=== PATIENT | female | born 1995 | race Caucasian/White ===

== ENCOUNTER 2017-12-08 00:05 | Inpatient (IN) | payer MEDICAID, SELFPAY ==
[2017-12-08] MEDS: Lactated Ringers 1,000 ML 50 ML IV ×4 (00:50→18:17)
[2017-12-08 01:17] LABS: Hematocrit 34.3 % (37-47); Hemoglobin 10.9 g/dl (12.0-15.0); Mean Corp Hgb Conc 31.8 g/gl (32-36); Mean Corpuscular Hgb 25.7 pg (27.0-32.0); Mean Corpuscular Volume 80.9 fL (81-99); Mean Platelet Vol. 10.6 fl (6.2-12.0); Platelet Count 298 K/mm3 (150-450); RBC Distribution Width CV 14.8 % (11.6-14.6); RBC Distribution Width SD 43.3 fl (35.1-43.9); Red Blood Count 4.24 M/mm3 (4.2-5.4); Scan Indicated on CBC? Y/N NO; White Blood Count 8.3 K/mm3 (4.4-11.0)
[2017-12-08] MEDS: Acetaminophen 500 MG Tablet 1000 MG PO (01:18)
--- NOTE | 2017-12-08 01:19 | PCM.HP.OB ---
- Problem List (1) Active labor at term Status: Acute (2) Gestational hypertension Status: Acute Qualifiers: Trimester: third trimester Qualified Code(s): O13.3 - Gestational [-induced] hypertension without significant proteinuria, third trimester (3) Obesity affecting in third trimester Status: Chronic (4) History of asthma Status: Chronic (5) Rh negative state in antepartum period Status: Chronic (6) History of depression Status: Chronic History Date of Admission: 12/08/17 Final ACSSIE: 12/12/17 Final CASSIE Source: US <20 weeks Gestational age: 39 Weeks and 3 Days History of this : Patient presents to triage with mother reporting intractable headache since Saturday. Patient reports no relief after taking Tylenol at home. Patient notes a family history of pre-eclampsia that all her cousins and sister had to be induced. Patient also started feeling more rhythmic contractions today that were 5 minutes apart and lasting a minute long. Patient reports +FM. Denies LOF or VB. Pertinent Past Medical History: See problem list and [facility] records Allergies amoxicillin trihydrate [From Augmentin] Adverse Reaction (Verified 12/08/17 00:52) Swelling potassium clavulanate [From Augmentin] Adverse Reaction (Verified 12/08/17 00:52) Swelling Current Medications Sodium Chloride (Sodium Chloride) 100 ml INTRA-UTER UD ONE Stop: 12/08/17 01:21 Smoking Status: Never smoker Alcohol: None Drug Use: none Number of Fetus(es): 1 Review of Systems Constitutional: Denies: Chills, Fever, Weight Change Eyes: Denies: Blurred vision, Vision Change HEENT: Reports: Head Aches. Denies: Nasal Congestion, Sinus Congestion, Sinus Drainage Cardiovascular: Denies: Chest Pain, Chest Pressure, Palpitations Respiratory: Denies: Cough, Shortness of breath at rest, Sputum production Gastrointestinal: Denies: Constipation, Diarrhea, Nausea, Vomiting Genitourinary: Denies: Dysuria Gynecological: Denies: Vaginal discharge Musculoskeletal: Denies: Joint Pain, Joint Tenderness Skin: Denies: Rash, Wounds Neurological: Reports: Headaches. Denies: Focal weakness, Numbness, Tingling Psychiatric: Denies: Anxiety, Depression, Homicidal Ideations, Suicidal Ideations Hematologic/ Lymphatic: Denies: Easy Bruising, Easy Bleeding Physical Exam Vitals: BP = 168/91, 140/72. Other VSS and patient afebrile FHT baseline 150, moderate variability, few accels, occasional early decels noted Ctx q 2-10 minutes, mild to moderately strong to palpation General: Alert, Oriented x3, No apparent distress Cardiovascular: Regular rate, Regular Rhythm Lungs: Clear to auscultation, Normal air movement Abdomen: Bowel Sounds Present, Non-Distended, No Hepato-splenomegaly, Gravid, Appropriate for Gestational Age Extremities:: Deep tendon reflexes - +3/4, +clonus BL. +1/+1 non-pitting edema in LE Estimated gestational size: Appropriate for gestational size Presentation: Cephalic Cervix Dilation (cm): 0 - External os 2cm Station: -3 Effacement (%): 50 Assessment/Plan Active and Suspected Problems Active labor at term (Acute) Gestational hypertension (Acute) 22 y/o @ 39.3wks, Gestational Hypertension, Pre-eclampsia - ruled out at this time 1) Admit patient for labor augmentation for GHTN - velasco catheter placement anticipated 2) Monitor blood pressures closely, initiate hypertensive protocol with blood pressures >160/100 as well as fluid restrictions 3) Dr. Harris notified of admission and agrees with plan of care. Marcela Quintero CNM
[2017-12-08 01:23] LABS: International Normalized Ratio 0.9; Partial Thromboplast Time 28.5 Seconds (24.1-36.2); Prothrombin Time (Protime)PT. 12.2 SECONDS (11.7-14.9)
[2017-12-08 01:25] VITALS: BMI 39.3
[2017-12-08 01:31] LABS: AST(SGOT) 26 U/L (15-37); Alanine Aminotransfer ALT/SGPT 31 U/L (13-56); Creatinine, Serum 0.76 mg/dL (0.55-1.02); EST Glomerular Filtration Rate 102 mL/min (>60); Est Glom Filt Rate - Afr Amer 123 mL/min (>60); Estimated Creatinine Clearance 105.36 ml/min; Uric Acid 5.9 mg/dL (2.6-6.0)
--- NOTE | 2017-12-08 01:36 | HP.PCM_ITS ---
- Problem List (1) Active labor at term Status: Acute (2) Gestational hypertension Status: Acute Qualifiers: Trimester: third trimester Qualified Code(s): O13.3 - Gestational [ -induced] hypertension without significant proteinuria, third trimester (3) Obesity affecting in third trimester Status: Chronic (4) History of asthma Status: Chronic (5) Rh negative state in antepartum period Status: Chronic (6) History of depression Status: Chronic History Date of Admission: 12/08/17 Final CASSIE: 12/12/17 Final CASSIE Source: US <20 weeks Gestational age: 39 Weeks and 3 Days History of this : Patient presents to triage with mother reporting intractable headache since Saturday. Patient reports no relief after taking Tylenol at home. Patient notes a family history of pre-eclampsia that all her cousins and sister had to be induced. Patient also started feeling more rhythmic contractions today that were 5 minutes apart and lasting a minute long. Patient reports +FM. Denies LOF or VB. Pertinent Past Medical History: See problem list and [facility] records Allergies amoxicillin trihydrate [From Augmentin] Adverse Reaction (Verified 12/08/17 00: 52) Swelling potassium clavulanate [From Augmentin] Adverse Reaction (Verified 12/08/17 00:52 ) Swelling Current Medications Sodium Chloride (Sodium Chloride) 100 ml INTRA-UTER UD ONE Stop: 12/08/17 01:21 Smoking Status: Never smoker Alcohol: None Drug Use: none Number of Fetus(es): 1 Review of Systems Constitutional: Denies: Chills, Fever, Weight Change Eyes: Denies: Blurred vision, Vision Change HEENT: Reports: Head Aches. Denies: Nasal Congestion, Sinus Congestion, Sinus Drainage Cardiovascular: Denies: Chest Pain, Chest Pressure, Palpitations Respiratory: Denies: Cough, Shortness of breath at rest, Sputum production Gastrointestinal: Denies: Constipation, Diarrhea, Nausea, Vomiting Genitourinary: Denies: Dysuria Gynecological: Denies: Vaginal discharge Musculoskeletal: Denies: Joint Pain, Joint Tenderness Skin: Denies: Rash, Wounds Neurological: Reports: Headaches. Denies: Focal weakness, Numbness, Tingling Psychiatric: Denies: Anxiety, Depression, Homicidal Ideations, Suicidal Ideations Hematologic/ Lymphatic: Denies: Easy Bruising, Easy Bleeding Physical Exam Vitals: BP = 168/91, 140/72. Other VSS and patient afebrile FHT baseline 150, moderate variability, few accels, occasional early decels noted Ctx q 2-10 minutes, mild to moderately strong to palpation General: Alert, Oriented x3, No apparent distress Cardiovascular: Regular rate, Regular Rhythm Lungs: Clear to auscultation, Normal air movement Abdomen: Bowel Sounds Present, Non-Distended, No Hepato-splenomegaly, Gravid, Appropriate for Gestational Age Extremities:: Deep tendon reflexes - +3/4, +clonus BL. +1/+1 non-pitting edema in LE Estimated gestational size: Appropriate for gestational size Presentation: Cephalic Cervix Dilation (cm): 0 - External os 2cm Station: -3 Effacement (%): 50 Assessment/Plan Active and Suspected Problems Active labor at term (Acute) Gestational hypertension (Acute) 22 y/o @ 39.3wks, Gestational Hypertension, Pre-eclampsia - ruled out at this time 1) Admit patient for labor augmentation for GHTN - velasco catheter placement anticipated 2) Monitor blood pressures closely, initiate hypertensive protocol with blood pressures >160/100 as well as fluid restrictions 3) Dr. Harris notified of admission and agrees with plan of care. Marcela Quintero CNM
[2017-12-08 01:58] LABS: Mucous, Urine 0 SEEN /hpf (<or=2+)
[2017-12-08 02:02] LABS: Color, Urine Yellow (Yellow); Glucose, Dipstick Normal (Normal); Ketone-Dipstick 15 mg/dl (Negative); Leukocyte Esterase-Dipstick 500 /ul (Negative); Nitrite-Dipstick Negative (Negative); Occult Blood-Urine 10 /ul (Negative); Protein-Dipstick 30 mg/dl (Negative); Urine Clarity Sl. Cloudy (Clear); Urine Urobilinogen 4 mg/dl (Normal)
[2017-12-08] MEDS: 0.9% Normal Saline 100 ML IV.SOLN. INTRA-UTER (02:14)
--- NOTE | 2017-12-08 02:18 | PCM.PN.BLA ---
Progress Note Leung bulb manual dilator catheter attempted to be placed - patient initially 1.5/50/-3 on exam. Leung catheter kept coming out of cervical os as balloon was being filled. After several attempts, catheter unable to be placed as cervix had dilated more to 3/50/-3. Decision made to start IV pitocin per protocol. Patient desires epidural for pain management. Pencillin GBS prophylaxis to be started at this time also. Marcela Quintero CNM
[2017-12-08 02:21] LABS: Urine Bilirubin Dipstick 1 mg/dL (Negative)
[2017-12-08 02:23] LABS: Bacteria 1+ /hpf (None Seen); Red Blood Cells-Urine 0-5 SEEN /hpf (0-5); Squamous Epithelial Cells - UA 10-25 SEEN /hpf (5-10); White Blood Cells 10-25 SEEN /hpf (0-5)
[2017-12-08] MEDS: Oxytocin 30 units/NS 500 ml 30 UNITS/500 ML IV.SOLN IV (02:31)
[2017-12-08 02:59] LABS: Protein, Urine (Random) 72.9 mg/dL (<11.9); Protein:Creat Ratio 250 mg/g CRE (0-200)
--- NOTE | 2017-12-08 07:39 | PCM.PN.BLA ---
Progress Note S: Patient sitting up in bed, overnight she reports that she was able to rest well with her contractions. Patient reports improvement of her headache. Pitocin currently at 6 milliunits, patient reports she continues to feel contractions and is interested now in getting an epidural. O: Last BP = 110/72, otherwise VSS and patient afebrile FHT baseline 145, moderate variability, few accels, no decels noted CTX q 2-5 minutes palpate moderate to strong SVE = 3/50/-2, AROM for blood-tinged fluid A: 22 y/o @ 39.3 weeks, IOL for GHTN, Pitocin induction, Category I FHT P: 1) Continue present management 2) Dr. Harris updated on patient status Marcela Quintero CNM
[2017-12-08] MEDS: Budesonide Respules 0.5 MG/2 ML AMPUL.NEB. INHALATION ×2 (13:02→18:46)
[2017-12-08] MEDS: Albuterol 2.5 MG/3 ML VIAL.NEB. INHALATION ×2 (13:02→18:45)
[2017-12-08 13:05] VITALS: PULSE 118; RESP 18
--- NOTE | 2017-12-08 14:00 | PCM.PN.BLA ---
Progress Note S: Patient reports increasing strength and intensity of contractions. Desired epidural and that was placed uneventfully. Patient now comfortably laboring, denies any pain or discomfort. Pitocin IV for labor augmentation continues to infuse. Patient's mother and uncle at bedside providing support to patient. O: VSS, Afebrile FHT baseline 145, moderate variability, + accels, no decels Ctx q 2-3 minutes apart, palpate moderately strong SVE = 4/80/-2 by nursing exam A: 22 y/o @ 39.3 weeks, IOL for GHTN, Pitocin Augmentation, Epidural Analgesia, Category I FHT P: 1) Continue pitocin titration 2) Encourage position changes and PO hydration 3) Reassess SVE in 2-4 hours or with change in maternal or status Marcela Quintero CNM
[2017-12-08] MEDS: Acetaminophen 325 MG Tablet PO (14:37)
--- NOTE | 2017-12-08 16:08 | PCM.PN.BLA ---
Progress Note S: Patient remains comfortable with epidural, denies any new symptoms. Patient's mother remains at bedside providing support. O: VSS, Afebrile. Isolated elevated blood pressure noted after receiving asthma maintenance medication - repeat BPs have been 130-140s/70-80s or lower FHT baseline 140, +accels, no decels, moderate variability Ctx q 2-4 minutes, palpate moderately strong SVE = 4-5/80/-2 Reflexes +2/4 BL in LE, no clonus noted at this time by provider Urine output WNL (>30cc/hr) A: 22 y/o @ 39.3 weeks, Pitocin IOL for GHTN, Category I FHT P: 1) Continue pitocin titration for labor management 2) IUPC placed 3) Encourage PO hydration and position changes. Marcela Quintero CNM
--- NOTE | 2017-12-08 16:18 | PN_ITS ---
Progress Note S: Patient remains comfortable with epidural, denies any new symptoms. Patient' s mother remains at bedside providing support. O: VSS, Afebrile. Isolated elevated blood pressure noted after receiving asthma maintenance medication - repeat BPs have been 130-140s/70-80s or lower FHT baseline 140, +accels, no decels, moderate variability Ctx q 2-4 minutes, palpate moderately strong SVE = 4-5/80/-2 Reflexes +2/4 BL in LE, no clonus noted at this time by provider Urine output WNL (>30cc/hr) A: 22 y/o @ 39.3 weeks, Pitocin IOL for GHTN, Category I FHT P: 1) Continue pitocin titration for labor management 2) IUPC placed 3) Encourage PO hydration and position changes. Marcela Quintero CNM
--- NOTE | 2017-12-08 18:38 | PCM.PN.BLA ---
Progress Note S: Patient remains in stable condition, pitocin currently at 8 milliunits. Nursing staff notified this certified nurse midwife that they recently assessed patient's cervix and they noted no change in dilation. O: VSS, Afebrile. Last BP = 120/76 FHT baseline 150, moderate variability, + accels, no decels Ctx q 2-4 minutes, MVU = 180-200 SVE = Unchanged per Nurse Exam A: 22 y/o @ 39.3 weeks, IOL for GHTN, Category I FHT, Pitocin Augmentation P: 1) Continue present management at this time 2) Encourage position changes Marcela Quintero CNM
--- NOTE | 2017-12-08 18:44 | PN_ITS ---
Progress Note S: Patient remains in stable condition, pitocin currently at 8 milliunits. Nursing staff notified this sanitarian aide that they recently assessed patient's cervix and they noted no change in dilation. O: VSS, Afebrile. Last BP = 120/76 FHT baseline 150, moderate variability, + accels, no decels Ctx q 2-4 minutes, MVU = 180-200 SVE = Unchanged per Nurse Exam A: 22 y/o @ 39.3 weeks, IOL for GHTN, Category I FHT, Pitocin Augmentation P: 1) Continue present management at this time 2) Encourage position changes Marcela Quintero CNM
[2017-12-08 18:46] VITALS: PULSE 85; RESP 16
--- NOTE | 2017-12-08 20:34 | PCM.PN.BLA ---
Progress Note S: Patient continues to rest at this time. Denies any issues. Patient's mother remains at bedside supporting patient. O: VSS, Afebrile FHT baseline 150, moderate variability, + accels, no decels Ctx q 2-4 minutes, MVU = 140-160. Pitocin just increased to 10 milliunits SVE = Deferred A: 22 y/o @ 39.3 weeks, Category I FHT, IOL for GHTN P: 1) Continue to increase pitocin at this time until adequate MVUs noted 2) Dr. Harris updated on patient status Marcela Quintero CNM
--- NOTE | 2017-12-08 21:59 | PCM.PN.BLA ---
Progress Note This provider was going to do vaginal exam on patient, nursing staff had just assessed patient's cervix about 30 minutes ago. Decision was made not to follow-up on the nurse's exam. Per nursing staff, no change in cervical dilation and caput noted. Patient remains afebrile, last temp 99.1. Encourage nursing staff not to check patient's cervix with next exam but to contact this provider who has been in house so recommendations for positioning of patient can be made. Marcela Quintero CNM
--- NOTE | 2017-12-08 22:04 | PN_ITS ---
Progress Note This provider was going to do vaginal exam on patient, nursing staff had just assessed patient's cervix about 30 minutes ago. Decision was made not to follow- up on the nurse's exam. Per nursing staff, no change in cervical dilation and caput noted. Patient remains afebrile, last temp 99.1. Encourage nursing staff not to check patient's cervix with next exam but to contact this provider who has been in house so recommendations for positioning of patient can be made. Marcela Quintero CNM
[2017-12-09] VITALS (25 sets, daily range): BP systolic 127–150; BP diastolic 53–95; PULSE 83–127; RESP 14–20; TEMP 36.4–37.4; O2SAT 95–100
[2017-12-09] MEDS: Lactated Ringers 1,000 ML 50 ML IV (00:16)
[2017-12-09] MEDS: 0.9% Saline Lock 10 ML Syringe IV (00:17)
--- NOTE | 2017-12-09 00:53 | PCM.PN.BLA ---
Progress Note S: Page received from nursing staff, pitocin is at 18 milliunits now. Nursing staff desires a reassessment of cervical dilation with plan to replace FSE monitor and to assess if IUPC is coming out. Patient reports she feels calm and has rested well. No changes in sensation of rectal pressure noted by patient. O: VSS, Afebrile FHT baseline 140, moderate variability, + accels, no decels Ctx q 2-3 minutes, palpate strong, MVU now 200-220 SVE = 4-5/80/-1 to 0 station with ctx. + caput noted. head LOT by Terrence's and SVE A: 22 y/o @ 39.3 weeks, IOL for GHTN, Category I FHT with Adequate ctx by MVUs, Protracted Labor P: 1) Adeuqate ctx by MVUs now noted, minimal cervical change, possible Deep Transverse Arrest 2) Encourage position changes, side release technique 3) If no cervical change by next exam, consider primary LTCS Marcela Quintero CNM
--- NOTE | 2017-12-09 01:06 | PN_ITS ---
Progress Note S: Page received from nursing staff, pitocin is at 18 milliunits now. Nursing staff desires a reassessment of cervical dilation with plan to replace FSE monitor and to assess if IUPC is coming out. Patient reports she feels calm and has rested well. No changes in sensation of rectal pressure noted by patient. O: VSS, Afebrile FHT baseline 140, moderate variability, + accels, no decels Ctx q 2-3 minutes, palpate strong, MVU now 200-220 SVE = 4-5/80/-1 to 0 station with ctx. + caput noted. head LOT by Terrence' s and SVE A: 22 y/o @ 39.3 weeks, IOL for GHTN, Category I FHT with Adequate ctx by MVUs, Protracted Labor P: 1) Adeuqate ctx by MVUs now noted, minimal cervical change, possible Deep Transverse Arrest 2) Encourage position changes, side release technique 3) If no cervical change by next exam, consider primary LTCS Marcela Quintero CNM
[2017-12-09] MEDS: Albuterol 2.5 MG/3 ML VIAL.NEB. INHALATION (01:40)
[2017-12-09] MEDS: Acetaminophen 325 MG Tablet PO (02:25)
--- NOTE | 2017-12-09 04:55 | PCM.PN.BLA ---
Progress Note S: Patient sitting up in bed, reports that she is starting to feel more rectal pressure. Decision made to do SVE at this time. O: VSS, Afebrile FHT baseline 140, moderate variability, + accels, no decels Ctx q 2-4 minutes, MVU = 180-200 SVE = Unchanged, head now asynclitic. + caput 4/80/-1 A: 22 y/o @ 39.4 weeks, Failed Induction, Category I FHT P: 1) Contact Dr. Harris - LTCS recommended 2) Benefits/Risks of LTCS discussed 3) Proceed with LTCS Marcela Quintero CNM
[2017-12-09] MEDS: Sodium Citrate/Citric Acid 30 ML UDC PO (04:57)
[2017-12-09] MEDS: Cefazolin 2 GM in 0.9% Normal Saline 100 ML IV (05:10)
[2017-12-09] MEDS: Oxytocin 30 units/NS 500 ml 30 UNITS/500 ML IV.SOLN 167 UNITS IV (05:24)
[2017-12-09] MEDS: Lactated Ringers 1,000 ML 100 ML IV ×3 (06:00→18:06)
--- NOTE | 2017-12-09 06:02 | OP.PCM_ITS ---
Operative Report Date of Procedure: 12/09/17 Surgeon: Dr. Elsa Michael Director Insurance: Manoj RAMIREZ Preoperative diagnosis: Failed induction, 39.4 wks gestation Gestational HTN Postoperative diagnosis: Failed Induction, 39.4 weeks gestation, gestational HTN Findings: pt was IOL for gestational HTN at 39.3 wks gestation- on pitocin 18mu with adequate contractions and ROM for approximately 22hours with no cervical change past 4-5cm. pt was counseled for Primary C/S due to failed induction. Pt underwent primary cs without complication. delivered live female at 5:24 am apgars 8/9 Anesthesia: epidural Complications: None Estimated blood loss:900 Implantable devices: None Operative note: After informed consent was obtained the patient was taken the operating room she was given spinal anesthesia. She was then placed in the supine position. She was prepped and draped in the normal sterile fashion. Anesthesia was found to be adequate. At this time a Pfannenstiel skin incision was made with a knife was carried down to the underlying layer of the fascia. The fascial incision was then extended laterally using curved Cerna scissor. Tensions was then turned to the superior aspect of the fascial edge was grasped with 2 straight Godfrey clamps tented up and the rectus muscle dissected off using Bovie. Attention was then turned to the inferior aspect where again [place] Feria clamps were placed in the rectus muscles were tented up and the fascia was dissected off using the Bovie. Rectus muscles were then in the midline bluntly and peritoneum was entered bluntly. Gentle opposing traction was placed. At this time the vesicouterine peritoneum was identified. vesicouterine peritoneum taken down using metaenbaum. Scalpel was used to make a uterine incision in a low transverse fashion. The uterus was then entered bluntly gentle opposing traction was placed to extend this incision. Membranes were ruptured clear. 's head was brought to the uterine incision was delivered atraumatically. Delayed cord clamping performed. Cord was clamped and cut was handed to the waiting nursery team. The Placenta was removed from the uterus. The uterus was then removed from the abdominal cavity. The uterus was cleared of all clots and debris using a lap. At this time the uterine incision was reapproximated using #1 Vicryl in a running locked fashion. followed by a second imbricating layer with 1-0 Vicryl. Hemostasis was appreciated. Posterior cul-de-sac was then cleared of all clots and debris. Uterus was placed back in the abdominal cavity. Gutters were cleared of all clots and debris. Uterine incision was reevaluated and noted to be of excellent hemostasis. Arian placed. At this time the peritoneum was grasped with Kellys reapproximated using #2 Vicryl suture in a running fashion. Fascia was then reapproximated using #1- PDS in a running fashion. Subcu layer was reapproximated with #2 0 plain gut suture in an interrupted fashion. Subcu layer was closed using 4-0 Monocryl in a subcu fashion. Dry sterile dressing was applied. Instrument lap needle count correct ?2. Anticipated normal postoperative course.
[2017-12-09] MEDS: Ketorolac 30 MG/ML Syringe IV ×2 (11:41→18:17)
--- NOTE | 2017-12-09 13:13 | NURSING ---
1300 This nurse removed the epidural catheter, blue tip intact.
--- NOTE | 2017-12-09 13:14 | NURSING ---
This nurse reviewed the charting completed by the student nurse, Rylee Springer. The charting is complete.
[2017-12-10] VITALS (8 sets, daily range): BP systolic 115–143; BP diastolic 74–86; PULSE 83–108; RESP 16–18; TEMP 36.9–37.2; O2SAT 95–98
[2017-12-10] MEDS: Ketorolac 30 MG/ML Syringe IV ×4 (00:37→23:54)
[2017-12-10] MEDS: 0.9% Saline Lock 10 ML Syringe IV ×4 (00:37→23:54)
[2017-12-10 05:20] LABS: Hematocrit 26.5 % (37-47); Hemoglobin 8.4 g/dl (12.0-15.0); Mean Corp Hgb Conc 31.7 g/gl (32-36); Mean Corpuscular Hgb 26.3 pg (27.0-32.0); Mean Corpuscular Volume 82.8 fL (81-99); Mean Platelet Vol. 9.8 fl (6.2-12.0); Platelet Count 237 K/mm3 (150-450); RBC Distribution Width CV 15.2 % (11.6-14.6); RBC Distribution Width SD 44.2 fl (35.1-43.9); White Blood Count 9.1 K/mm3 (4.4-11.0)
[2017-12-10 05:21] LABS: Scan Indicated on CBC? Y/N NO
--- NOTE | 2017-12-10 07:42 | PCM.PN.OB ---
Patient Problems: Active and Suspected Problems Active labor at term (Acute) Gestational hypertension (Acute) Objective: pt seen at bedside, doing well. pt reports good pain control - rates pain 3/10. Breast feeding. Leung just removed awaiting void. pt reports passing flatus. - Physical Exam General: Alert, Oriented x3 Abdomen: Soft, Non-Distended, - - fundus firm. incision dressing dry. Extremities: No Calf Tenderness Vital Signs Temp Pulse Resp BP Pulse Ox 98.5 F 91 16 122/74 H 95 12/10/17 04:40 12/10/17 04:40 12/10/17 06:00 12/10/17 04:40 12/10/17 06:00 Oxygen Delivery Method Room Air Weight: 107.2 kg Body Mass Index (BMI) 39.3 Intake and Output for Last 24 Hours 12/08/17 12/09/17 12/10/17 23:59 23:59 23:59 Intake Total 5635 / 5635 3636 / 3636 1245 / 1245 Output Total 1750 / 1750 1575 / 1575 500 / 500 Balance 3885 / 3885 2061 / 2061 745 / 745 Microbiology Past 72 Hours 12/08/17 01:45 Urine Culture - Final Urine, Clean Catch Mixed Gram Positive Organisms Laboratory Tests Past 24 Hrs 12/09/17 12/10/17 09:12 05:10 WBC 9.1 RBC 3.20 L Hgb 8.4 L Hct 26.5 L MCV 82.8 MCH 26.3 L MCHC 31.7 L RDW 15.2 H RDW Differential 44.2 H Plt Count 237 MPV 9.8 Screen NEGATIVE Baby's Blood Type A POSITIVE Baby's LACEY NEGATIVE Assessment/Plan Active and Suspected Problems Active labor at term (Acute) Gestational hypertension (Acute) POD#1, doing well. routine care voiding trial pain mgmt ambulation
--- NOTE | 2017-12-10 07:50 | DCINST_ITS ---
Discharge Diet: No Restrictions Discharge Activity: Return to Normal Activity, May Not Drive - for 2 weeks, May not drive while taking narcotic pain medications., May Shower, May Take a Tub Bath - in 7 days. May resume sexual activity in: 4-6 weeks Lifting Restrictions: 20 pounds Additional Activity Instructions:: Nothing in the vagina for 4-6 weeks. You may return to work/school in 6 weeks. Call your doctor if your incision/area has: Continuous Slow Oozing, Sudden Increased Bleeding, Increased Pain/ Swelling, Increased Redness, Foul Smelling Discharge Call your doctor if you observe: Fever of 101 or Higher, Using more than one pad per hour - for 2 hours Suture Line Care: Avoid Pulling/Pushing, Avoid Pinching/Bending Cleanse incision/area with: Keep Dressing Clean & Dry Additional Instructions: If you experience any of the following, contact your healthcare provider. * Bleeding that soaks a pad every hour for 2 hours * Fever 100.4 or higher * Unrelieved incision or abdominal pain * Swelling, redness, discharge or bleeding from your incision or episiotomy site * Your incision begins to separate * Problems urinating (including inability to urinate or burning while urinating) . * Visual changes * Severe headache * Flu-like symptoms * Pain or redness in one of both of your breasts * Pain, warmth, tenderness or swelling in your legs, especially the calf area * Frequent nausea and vomiting * Symptoms of depression or anxiety If you experience any of the following, call 911 or go to the nearest Emergency Room. * Chest pain * Problems breathing * Seizure activity * Partial or complete paralysis of a body part, slurred speech, weakness or drooping of the face, or a sudden inability to walk or hold your balance Allergies/Adverse Reactions: Allergies amoxicillin trihydrate [From Augmentin] Adverse Reaction (Verified 12/08/17 02: 00) Swelling vaginal swelling in childhood potassium clavulanate [From Augmentin] Adverse Reaction (Verified 12/08/17 00:52 ) Swelling Medications to take at Discharge Budesonide/Formoterol 160/4.5 [Symbicort 160/4.5 Mcg Inhaler (SP)] 2 puff IH BID 09/09/17 [id number]/FA/Omega3/Dha/Fish Oil [ Gummies] 1 tab PO DAILY 11/13/17 Albuterol Inhaler [Ventolin Hfa] 1 - 2 puff INHALATION Q4H PRN PRN 12/08/17 Ibuprofen [Motrin] 800 mg PO Q8H PRN PRN #30 tab 12/10/17 Oxycodone HCl/Acetaminophen [Percocet 5/325] 1 tablet PO Q6H PRN PRN 7 Days #28 tablet 12/10/17 Senna/Docusate Sodium [Senokot-S] 1 - 2 tab PO DAILY PRN #20 tab 12/10/17 SimETHICONE [Mylicon] 80 mg PO PCHS PRN #30 tab 12/10/17 The following prescriptions were given: Oxycodone HCl/Acetaminophen [Percocet 5/325] 1 tablet PO Q6H PRN PRN 7 Days #28 tablet PRN Reason: Pain Ibuprofen [Motrin] 800 mg PO Q8H PRN PRN #30 tab PRN Reason: Pain Senna/Docusate Sodium [Senokot-S] 1 - 2 tab PO DAILY PRN #20 tab PRN Reason: Constipation SimETHICONE [Mylicon] 80 mg PO PCHS PRN #30 tab PRN Reason: Indigestion/stomach pain Follow-Up: Call to make an appointment with your doctor for an incision check in 1-2 weeks. You will also need a 6 week post- follow up appointment. Please Follow Up With: Elsa Michael MD - Call to make an appointment for an incision check in 1-2 [phone] When: You will need a post- check in 6 weeks. Primary Care Physician: Chacho Melendez MD [Primary Care Provider] -
[2017-12-10] MEDS: oxyCODONE 5 MG Tablet PO ×2 (15:21→21:21)
[2017-12-11 02:00] VITALS: BP 125/82; PULSE 96; RESP 18; TEMP 36.9
[2017-12-11] MEDS: Ketorolac 30 MG/ML Syringe IV (06:32)
[2017-12-11] MEDS: 0.9% Saline Lock 10 ML Syringe IV (06:33)
[2017-12-11 07:00] VITALS: BP 138/77; PULSE 94; RESP 16; TEMP 36.4; O2SAT 98
--- NOTE | 2017-12-11 09:04 | PCM.PN.BLA ---
Progress Note S: Patient sitting up in rocking chair, reports no issues at this time. Patient is working on latching baby with it architecture consultant and nursing staff. Patient reports that incisional pain is well controlled. Denies any HIRSCH, dizziness and scotoma. Denies any issues with urination or ambulation. O: VSS, Afebrile Hgb = 8.4 Nipples with cracks or blisters, no ecchymoses noted Incisional bandage dry and intact Trace non-pitting pedal edema noted +2/4 reflexes, no clonus, no calf tenderness to palpation A: 22 y/o G1, now P1, s/p POD #2 LTCS for Failed IOL for GHTN, Normal PP course, Asymptomatic Anemia P: 1) Continues PP orders 2) consultation today 3) Anticipate discharge to home tomorrow Marcela Quintero CNM
--- NOTE | 2017-12-11 09:09 | PN_ITS ---
Progress Note S: Patient sitting up in rocking chair, reports no issues at this time. Patient is working on latching baby with obiee consultant and nursing staff. Patient reports that incisional pain is well controlled. Denies any HIRSCH, dizziness and scotoma. Denies any issues with urination or ambulation. O: VSS, Afebrile Hgb = 8.4 Nipples with cracks or blisters, no ecchymoses noted Incisional bandage dry and intact Trace non-pitting pedal edema noted +2/4 reflexes, no clonus, no calf tenderness to palpation A: 22 y/o G1, now P1, s/p POD #2 LTCS for Failed IOL for GHTN, Normal PP course , Asymptomatic Anemia P: 1) Continues PP orders 2) consultation today 3) Anticipate discharge to home tomorrow Marcela Quintero CNM
[2017-12-11] MEDS: Ibuprofen 600 MG Tablet PO ×2 (13:05→18:36)
[2017-12-11 14:00] VITALS: BP 140/94; PULSE 97; RESP 18; TEMP 37.1; O2SAT 100
[2017-12-11 19:50] VITALS: BP 138/88; PULSE 92; RESP 16; TEMP 37.2; O2SAT 99
[2017-12-12] MEDS: Ibuprofen 600 MG Tablet PO (01:14)
[2017-12-12 01:20] VITALS: BP 134/88; PULSE 80; RESP 16; TEMP 36.9; O2SAT 99
[2017-12-12] MEDS: oxyCODONE 5 MG Tablet PO (04:24)
[2017-12-12 05:06] VITALS: PULSE 95; RESP 18; O2SAT 99
[2017-12-12] MEDS: Albuterol 2.5 MG/3 ML VIAL.NEB. INHALATION (05:06)
[2017-12-12] MEDS: Budesonide Respules 0.5 MG/2 ML AMPUL.NEB. INHALATION (07:01)
[2017-12-12 08:35] VITALS: BP 141/92; PULSE 114; RESP 18; TEMP 37.1; O2SAT 98
--- NOTE | 2017-12-12 08:45 | PCM.PN.OB ---
Patient Problems: Active and Suspected Problems Active labor at term (Acute) Gestational hypertension (Acute) Subjective: pain well controlled, average lochia, no N/V. + Bm and flatus - Physical Exam General: Alert, Cooperative, No apparent distress Abdomen: Soft, Distended - mildly, softly, Tender - appropriate Extremities: Edema - 1+ Skin: Incision - clean, dry and intact Vital Signs Temp Pulse Resp BP Pulse Ox 98.5 F 95 18 134/88 H 99 12/12/17 01:20 12/12/17 05:06 12/12/17 05:06 12/12/17 01:20 12/12/17 05:06 Oxygen Delivery Method Room Air Weight: 107.2 kg Body Mass Index (BMI) 39.3 Intake and Output for Last 24 Hours 12/10/17 12/11/17 12/12/17 23:59 23:59 23:59 Intake Total 1245 / 1245 Output Total 1300 / 1300 Balance -55 / -55 Microbiology Past 72 Hours 12/08/17 01:45 Urine Culture - Final Urine, Clean Catch Mixed Gram Positive Organisms Assessment/Plan Active and Suspected Problems Active labor at term (Acute) Gestational hypertension (Acute) PPD#3 doing well ready for d/c
--- NOTE | 2017-12-12 08:51 | PCM.DC.SUM ---
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 He was induced for gestational hypertension. A Leung catheter placed and Pitocin rupture of membranes performed. She did not progress past the cervical ripening phase and enter into active labor. She had a primary low transverse section for failed induction. Was performed on 12/09/2017. The lower uterine segment was closed with 2 layers. Had chronic antepartum anemia with mild superimposed acute blood loss anemia which she tolerated well. Postoperatively her blood pressure stabilized without medications. She was not placed on magnesium. By postoperative day #3 she was ambulating urinating and tolerating regular diet and had a bowel movement. Her pain was well-controlled on oral pain medicines. She was discharged home with routine instructions and prescriptions and follow-up in our office in 1-2 and 6 weeks or as needed. [] Discharge Diet: No Restrictions Discharge Activity: Return to Normal Activity, May Not Drive - for 2 weeks, May not drive while taking narcotic pain medications., May Shower, May Take a Tub Bath - in 7 days. May resume sexual activity in: 4-6 weeks Additional Activity Instructions:: Nothing in the vagina for 4-6 weeks. You may return to work/school in 6 weeks. Call your doctor if your incision/area has: Continuous Slow Oozing, Sudden Increased Bleeding, Increased Pain/ Swelling, Increased Redness, Foul Smelling Discharge Call your doctor if you observe: Fever of 101 or Higher, Using more than one pad per hour - for 2 hours Suture Line Care: Avoid Pulling/Pushing, Avoid Pinching/Bending Cleanse incision/area with: Keep Dressing Clean & Dry Home Medications: Medications to take at Discharge Budesonide/Formoterol 160/4.5 [Symbicort 160/4.5 Mcg Inhaler (SP)] 2 puff IH BID 09/09/17 [id number]/Omega3/Dha/Fish Oil [ Gummies] 1 tab PO DAILY 09/09/17 Albuterol Inhaler [Ventolin Hfa] 1 - 2 puff INHALATION Q4H PRN PRN 12/08/17 Ibuprofen [Motrin] 800 mg PO Q8H PRN PRN #30 tab 12/10/17 Oxycodone HCl/Acetaminophen [Percocet 5/325] 1 tablet PO Q6H PRN PRN 7 Days #28 tablet 12/10/17 Senna/Docusate Sodium [Senokot-S] 1 - 2 tab PO DAILY PRN #20 tab 12/10/17 SimETHICONE [Mylicon] 80 mg PO PCHS PRN #30 tab 12/10/17 Following Prescrptions Were Given to Patient: Oxycodone HCl/Acetaminophen [Percocet 5/325] 1 tablet PO Q6H PRN PRN 7 Days #28 tablet PRN Reason: Pain Ibuprofen [Motrin] 800 mg PO Q8H PRN PRN #30 tab PRN Reason: Pain Senna/Docusate Sodium [Senokot-S] 1 - 2 tab PO DAILY PRN #20 tab PRN Reason: Constipation SimETHICONE [Mylicon] 80 mg PO PCHS PRN #30 tab PRN Reason: Indigestion/stomach pain Other Amb Orders: Electric breast pump Location: None Selected Primary Care Physician: Chacho Melendez MD [Primary Care Provider] - Please Follow Up With: Elsa Michael MD - Call to make an appointment for an incision check in 1-2 [phone] When: You will need a post- check in 6 weeks. Meaningful Use Info Meaningful Use Diagnoses (Choose all that apply): None applicable
--- NOTE | 2017-12-12 12:30 | NURSING ---
baby bands verified by nurse and mother. mother signed baby discharge sheet.
== END 2017-12-12 12:35 | disposition home or self-care (01) | DRG 370 ==
PROVIDERS: Advanced Practice Midwife; Admitting Provider Obstetrics & Gynecology; Family Provider Family Medicine; PCP Family Medicine; Visit Provider Obstetrics & Gynecology
DX: O61.0 Failed medical induction of labor (principal); D62 Acute posthemorrhagic anemia; E66.9 Obesity, unspecified; O99.213 Obesity complicating pregnancy, third trimester; O13.4 Gestational [pregnancy-induced] hypertension without significant proteinuria, complicating childbirth; Z37.0 Single live birth; Z3A.39 39 weeks gestation of pregnancy
CPT/HCPCS: 59025; 59050; 81001; 82565; 82570; 84156; 84450; 84460; 84550; 85027; 85461; 85610; 85730; 86850; 86900; 87086; 87088; 90384; 94640; 94762; 99218; J7120; A4216; G0378; J2405; J2790

== ENCOUNTER 2017-12-16 15:25 | Outpatient (CLI) | payer MEDICAID, SELFPAY | END 2017-12-16 16:20 | disposition home or self-care (01) | LOC: WPOUT 15:40 → WP 15:42 | PROVIDERS: Family Provider Family Medicine; PCP Family Medicine; Visit Provider Obstetrics & Gynecology | DX: Z39.1 Encounter for care and examination of lactating mother (principal) | CPT/HCPCS: 96152 ==

== ENCOUNTER 2019-02-13 11:32 | Emergency (ER) | payer MEDICAID, SELFPAY ==
[2019-02-13 11:34] VITALS: BP 126/83; PULSE 107; RESP 16; TEMP 36.9; O2SAT 98; BMI 36.4
[2019-02-13] MEDS: Ketorolac 30 MG/ML Syringe 15 MG IV (12:02)
[2019-02-13] MEDS: 0.9% Normal Saline 1,000 ML 999 ML IV (12:03)
--- NOTE | 2019-02-13 12:22 | ED.DCSUM_ITS ---
History of Present Illness Chief Complaint: Headache Detail of Chief Complaint: Bifrontal headache Informant: Patient Onset: Yesterday Context: Sudden Onset Timing: Continuous Quality: Pain Location: Forehead Current Severity: Moderate Maximum Severity: Severe Worsened by: Movement Relieved by: Nothing Associated Symptoms: Recent diagnosis strep tonsillitis Narrative: Patient is a 24-year-old who reports onset of illness Saturday. She reported sore throat . Seen and diagnosed with strep tonsillitis. She is presently on azithromycin. She presents because of bifrontal head pain. She reports light sensitivity. She reports neck pain. She reports mild nasal congestion. She denies earache. She denies change in voice, difficulty swallowing or difficulty breathing. She denies cardiac restaurant symptoms. She denies GI symptoms. She denies rash. Prior similar symptoms: Yes Recent Illness/Hospitalization: Yes - Past Medical History (1) Gestational hypertension Status: Acute (2) History of asthma Status: Chronic (3) History of depression Status: Chronic Past Medical History - Allergies and Home Meds Allergies/Adverse Reactions: Allergies amoxicillin trihydrate [From Augmentin] Adverse Reaction (Verified 02/13/19 11:32) Swelling vaginal swelling in childhood potassium clavulanate [From Augmentin] Adverse Reaction (Verified 02/13/19 11:32) Swelling Primary Care Physician: Chacho Melendez MD [Primary Care Provider] - Prior records reviewed: Yes Surgical History: noncontributory Lives: With Family Smoking Status: Current every day smoker Alcohol: None Drugs: None Review of Systems General: Reports: Chills, Fever Eyes: Denies: Visual changes - bilaterally, Blurred Vision - bilaterally, Diplopia ENT: Reports: Rhinorrhea, Sore throat. Denies: Bilateral ear pain Cardiovascular: Denies: Chest pain, Palpitations Respiratory: Denies: Dyspnea, Cough, Dyspnea on exertion Gastrointestinal: Denies: Abdominal pain, Nausea, Vomiting, Diarrhea Genitourinary: Denies: Dysuria, Hematuria, Frequency Musculoskeletal: Reports: Myalgias, Arthralgias, Neck pain. Denies: Back pain, Swelling, Extremity Pain Skin: Denies: Rash, Wounds Neurological: Reports: Headache. Denies: Weakness, Parasthesia, Numbness Hematologic: Denies: Easy bruising, Easy bleeding Physical Exam Vital Signs/Narrative: Vital Signs Temp Pulse Resp BP Pulse Ox 02/13/19 11:34 98.5 F 107 H 16 126/83 H 98 Inital Vital Signs reviewed: Yes General: Well nourished, Well developed, Obese, No Acute Distress Head: Normocephalic, Atraumatic Eyes: Perrl, EOMI, - - There there is no papilledema. Cup-to-disc ratio is normal. There is no photophobia on examination.. Negative for: Pale conjunctiva, Scleral icterus ENT: Moist mucous membranes, No rhinorrhea, TM's clear, Dry mucous membranes, - - Uvula is midline. There is evidence of peritonsillar cellulitis with no evidence of peritonsillar abscess. There is no fluctuance palpation of the soft palate. No meningeal findings. Negative Kernig's Brezinski sign. Neck: Supple, Nontender, No lymphadenopathy, No JVD, - - Trachea is midline. There is no stridor. Cardiovascular: Regular rate, Regular rhythm, No murmurs, Normal S1, Normal S2 - Went to quick Respiratory: No distress, CTA bilaterally, Chest nontender Extremities: Nontender, No edema Skin: Normal color, No rash. Negative for: Cyanosis, Jaundice Neurological: Alert, Oriented x3, Cranial nerves II-XII grossly intact, Normal Strength, Normal Sensation, Normal Gait Psychological: Depressed Diagnostic/Tx/Re-eval - Medical Decision Making Patient has evidence of strep tonsillitis/peritonsillar cellulitis. She received a liter of normal saline and Toradol for headache. Will reevaluate 30- 60 minutes. Patient was reassessed at 1335. She is sitting up smiling using her cell phone. She reports she still has a slight headache. She is no longer complaining of neck pain. ED Disposition - Plan for ED Patient: Disposition: Home or Assisted Living Diagnosis: Head pain cephalgia Instructions: ED Strep Pharyngitis Conf Referrals: Chacho Melendez MD [Primary Care Provider] - 10-14 Days if not better Additional Instructions: Salt water gargle 6-8 times a day Use Chloraseptic spray for discomfort If you have trouble opening her mouth, trouble swallowing liquids or solids or any difficulty breathing return to the emergency department
[2019-02-13 14:10] VITALS: BP 122/76; PULSE 59; RESP 16; O2SAT 98
== END 2019-02-13 14:12 | disposition home or self-care (01) ==
PROVIDERS: Emergency Provider Emergency Medicine; Family Provider Family Medicine; PCP Family Medicine
DX: R51 Headache (principal); J36 Peritonsillar abscess; F17.200 Nicotine dependence, unspecified, uncomplicated; J45.909 Unspecified asthma, uncomplicated; F32.9 Major depressive disorder, single episode, unspecified
CPT/HCPCS: 96361; 96374; 99283; J7030; A4216

== ENCOUNTER 2019-05-28 19:07 | Emergency (ER) | payer MEDICAID, SELFPAY ==
[2019-05-28 19:08] VITALS: BP 150/85; RESP 98; TEMP 36.9; O2SAT 98; BMI 36.2
--- NOTE | 2019-05-28 19:53 | RAD_ITS ---
STUDY: X-RAY - RIGHT FOOT CLINICAL: Female, 24 years old. Trauma TECHNIQUE: 3 view(s) of the foot. COMPARISON: None. FINDINGS: Normal talus, calcaneus, and tarsal bones. Normal visualized subtalar, talonavicular, calcaneocuboid, tarsal and tarsometatarsal articulations. Normal metatarsi. Normal metatarsophalangeal joint of the great toe. Normal tibial and fibular sesamoid bones. Normal interphalangeal joint of the great toe. Normal phalanges of the great toe. Normal second through fifth metatarsophalangeal joints. Normal interphalangeal joints and phalanges of the lesser toes. The soft tissue structures are unremarkable. RAD/Foot min 3 Views IMPRESSION: Normal x-ray examination of the foot. Electronically Signed: Juice Pope MD at 20:15 EDT , Service support ,
--- NOTE | 2019-05-28 19:55 | RAD_ITS ---
STUDY: X-RAY - RIGHT ANKLE REASON FOR EXAM: Female, 24 years old. Trauma TECHNIQUE: 3 view(s) of the ankle. COMPARISON: None. FINDINGS: Normal visualized distal tibia and fibula. Normal medial and lateral malleoli. Normal tibiotalar articulation and ankle mortise. Normal visualized talus and calcaneus. The visualized subtalar, talonavicular, calcaneocuboid and tarsal articulations are normal. The soft tissue structures are unremarkable. RAD/Ankle min 3 Views IMPRESSION: Normal x-ray examination of the ankle. Electronically Signed: Juice Pope MD at 20:11 EDT , Service support ,
--- NOTE | 2019-05-28 20:50 | ED.DCSUM_ITS ---
- ER Visit Summary Date of Service: 05/28/19 Chief Complaint: Right ankle pain History of Present Illness: The patient is a 24 F presenting after right ankle injury. Patient states she stepped in a hole and twisted her right ankle. She did not hit her head or lose consciousness. She states initially she was able to ambulate and later the pain worsened. She has tried no medications at home. She denies other injuries. Physical Examination: Vitals are stable. Patient is afebrile. Alert no acute distress. HEENT exam is unremarkable. Neck is supple. Lungs are clear and equal bilaterally. Heart is regular rate and rhythm. Extremities right lateral ankle tenderness and swelling. No Achilles tendon tenderness. No proximal fibula tenderness. normal pulses. Skin is warm and dry. Remainder of exam is unremarkable. Emergency Department Course and Treatment: X-ray right foot and ankle shows no acute process. Patient is advised to ice and elevate. She is given a boot orthosis. She states she has crutches at home. She is given a prescription for Naprosyn. Advised return to ED for worsening complaints. Advised follow-up with primary care physician. Disposition: Discharge home Impression: Right ankle sprain This note was generated with [employer] dictation software. It may contain incorrect words, spelling, and punctuation that were not noted in review of the chart prior to signing ED Disposition - Plan for ED Patient: Instructions: Sprain, Ankle, with X-Ray Prescriptions: Naproxen [Naprosyn] 500 mg PO BID PRN #20 tab Prescription Printed Referrals: Chacho Melendez MD [Primary Care Provider] -
[2019-05-28 20:59] VITALS: BP 131/89; PULSE 71; RESP 18; O2SAT 98
--- NOTE | 2019-05-28 21:00 | ED.RN ---
THIS NURSE REVIEWED D/C INSTRUCTIONS WITH PT. PT VERBALIZED UNDERSTANDING OF INSTRUCTIONS. PT DECLINED CRUTCHES STATING SHE HAS SOME AT HOME. PT DENIES FURTHER NEEDS OR QUESTIONS AT THIS TIME. PT AMBULATES FROM ROOM ON OWN WITHOUT ASSISTANCE FROM STAFF.
== END 2019-05-28 21:01 | disposition home or self-care (01) ==
PROVIDERS: Emergency Provider Emergency Medicine; Family Provider Family Medicine; PCP Family Medicine
DX: S93.401A Sprain of unspecified ligament of right ankle, initial encounter (principal); X50.1XXA Overexertion from prolonged static or awkward postures, initial encounter; Y92.89 Other specified places as the place of occurrence of the external cause
CPT/HCPCS: 73610; 73630; 99283

== ENCOUNTER → 2019-08-05 11:22 | Outpatient (CLI) | payer MEDICAID, SELFPAY ==
[2019-08-04 17:44] VITALS: BMI 36.2
[2019-08-05 11:39] LABS: Mucous, Urine 0 SEEN /hpf (<or=2+)
[2019-08-05 11:49] LABS: Color, Urine Yellow (Yellow); Glucose, Dipstick Normal (Normal); Ketone-Dipstick Negative (Negative); Leukocyte Esterase-Dipstick 100 /ul (Negative); Nitrite-Dipstick Positive (Negative); Occult Blood-Urine 250 /ul (Negative); Protein-Dipstick 30 mg/dl (Negative); Urine Bilirubin Dipstick Negative (Negative); Urine Clarity Sl. Cloudy (Clear); Urine Urobilinogen Normal (Normal)
[2019-08-05 11:55] LABS: Bacteria 1+ /hpf (None Seen); Red Blood Cells-Urine 25-50 SEEN /hpf (0-5); Squamous Epithelial Cells - UA 0-5 SEEN /hpf (5-10); White Blood Cells 10-25 SEEN /hpf (0-5)
== END ==
PROVIDERS: Family Provider Family Medicine; PCP Family Medicine; Referring Provider Physician Assistant Surgical; Visit Provider Physician Assistant Surgical
DX: N30.01 Acute cystitis with hematuria (principal)
CPT/HCPCS: 81001; 87077; 87086; 87088

== ENCOUNTER 2020-06-06 13:35 | Emergency (ER) | payer MEDICAID, SELFPAY ==
[2019-08-04 17:44] VITALS: BMI 36.2
[2020-06-06 13:36] VITALS: BP 154/99; PULSE 101; RESP 20; TEMP 36.3; O2SAT 98; BMI 42.3
--- NOTE | 2020-06-06 14:40 | RAD_ITS ---
STUDY: X-RAY - LEFT TIBIA AND FIBULA REASON FOR EXAM: Female, 25 years old. LEFT LOWER LEG PAIN, DIFFICULTY BEARING WEIGHT, NO INJURY TECHNIQUE: 2 view(s) of the tibia and fibula were obtained. COMPARISON: None. FINDINGS: Normal visualized tibia. Normal visualized fibula. The soft tissue structures are unremarkable. RAD/Tibia & Fibula 2 Views IMPRESSION: Normal x-ray examination of the tibia and fibula. Electronically Signed: Graham Carey, at 14:56 EDT , Service support ,
--- NOTE | 2020-06-06 15:11 | VDLE_ITS ---
Reason For Study: Pain Procedure LEFT Exam performed portable in ED. GSV is normal. A preliminary report was called and/or faxed CFV is compressible, spontaneous, phasic, to ED. competent, and demonstrates normal augmentation. FV is compressible, spontaneous, phasic, competent and demonstrates normal augmentation. POP V is compressible, spontaneous, phasic, competent and demonstrates normal augmentation. T/P Trunk is compressible. PTV is compressible. LT PerV is compressible. Interpretation Summary There is no evidence of left lower extremity deep vein thrombosis. Left great saphenous vein appears patent and compressible segmentally. Ordering Physician: Brennen Gross Referring Physician: MD Nora Chacho Performed By: Laura Hilliard RVT
--- NOTE | 2020-06-06 15:12 | ED.DCSUM_ITS ---
History of Present Illness Chief Complaint: Lower Extremity Injury Informant: Patient Narrative: Patient is a 25-year-old previous healthy female who presents to the emergency department for nontraumatic left lower extremity pain. She states that this never happened before in the past. It woke her up out of her sleep this morning. Walking on it makes the symptoms worse. Any movement makes the symptoms worse. While at rest the symptoms are not too severe. The pain does get up to a 10 out of 10. She tried taking ibuprofen for this. She has a family history of blood clots. She personally has never had one. She denies any periods of immobilization recently. She has not had any chest pain or shortness of breath. Denies any recent trauma to the leg. No strenuous movement of it the previous days. She believes that the foot did start to turn a red color earlier today but this has since resolved. She believes that the leg is slightly swollen compared to the right. She denies any fevers or chills. No specific joint pain. Patient denies any bleeding disorders in the family although some people do have lupus. She was tested for this multiple times and has never been diagnosed with this. Past Medical History - Allergies and Home Meds Allergies/Adverse Reactions: Allergies amoxicillin trihydrate [From Augmentin] Adverse Reaction (Verified 06/06/20 13:38) Swelling vaginal swelling in childhood potassium clavulanate [From Augmentin] Adverse Reaction (Verified 06/06/20 13:38) Swelling Primary Care Physician: Chacho Melendez MD [STAFF PHYSICIAN] - 3-5 Days if not improving Prior records reviewed: Yes Past Medical History: - - Hypertension, asthma Surgical History: noncontributory Smoking Status: Never smoker Review of Systems All systems negative except as indicated General: Denies: Chills, Fever, Sweats Eyes: Denies: Visual changes - bilaterally, Diplopia ENT: Denies: Rhinorrhea, Sore throat Cardiovascular: Denies: Chest pain, Palpitations Respiratory: Denies: Dyspnea, Cough, Dyspnea on exertion Gastrointestinal: Denies: Abdominal pain, Nausea, Vomiting, Diarrhea Genitourinary: Denies: Dysuria, Hematuria, Frequency Musculoskeletal: Reports: Swelling, Extremity Pain. Denies: Back pain Skin: Denies: Rash, Wounds Neurological: Denies: Headache, Weakness, Numbness Physical Exam Vital Signs/Narrative: Vital Signs Temp Pulse Resp BP Pulse Ox 06/06/20 13:36 97.3 F L 101 H 20 H 154/99 H 98 Inital Vital Signs reviewed: Yes General: Well nourished, Well developed, No Acute Distress Head: Normocephalic, Atraumatic Eyes: Perrl, EOMI ENT: Moist mucous membranes, No rhinorrhea Neck: Supple, Nontender Cardiovascular: Regular rate, Regular rhythm, No murmurs Respiratory: No distress, CTA bilaterally, Chest nontender Abdomen: Soft, Nontender, Nondistended, Normal bowel sounds Back: Nontender, Normal Inspection Extremities: No edema, Tenderness - Tenderness to calf to very light palpation, Calf Tenderness. Negative for: Edema Skin: Normal color, No rash Neurological: Alert, Oriented x3, Cranial nerves II-XII grossly intact, Normal Strength, Normal Sensation Psychological: Normal affect, Normal Mood Diagnostic/Tx/Re-eval - Medical Decision Making Presents to the emergency department for nontraumatic left lower leg pain. He does have significant tenderness to the calf. Will get an ultrasound to evaluate for DVT as she has family history of this. X-ray obtained which did not show any evidence of bony abnormality. Ultrasound did not show any evidence of acute DVT. Patient states she still wilder ving pain and is requesting crutches. We will give her a set here in the emergency department. She is to follow-up with her PCP about this pain. Warning signs and symptoms for which to return to the emergency department were reviewed with her including any joint swelling, overlying skin changes or developing any systemic symptoms. She understands and is agreeable this plan. Will discharge home in stable condition. ED Disposition - Plan for ED Patient: Disposition: Home or Assisted Living Diagnosis: Leg pain, left Instructions: ED Acute Pain [facility] Referrals: Chacho Melendez MD [STAFF PHYSICIAN] - 3-5 Days if not improving
[2020-06-06 15:57] VITALS: RESP 16
== END 2020-06-06 15:58 | disposition home or self-care (01) ==
PROVIDERS: Emergency Provider Emergency Medicine; PCP Internal Medicine
DX: M79.605 Pain in left leg (principal); I10 Essential (primary) hypertension; J45.909 Unspecified asthma, uncomplicated; M32.9 Systemic lupus erythematosus, unspecified; Z88.0 Allergy status to penicillin; Z88.1 Allergy status to other antibiotic agents; M79.89 Other specified soft tissue disorders
CPT/HCPCS: 73590; 93971; 99283

== ENCOUNTER 2021-07-02 19:33 | Emergency (ER) | payer MEDICAID, SELFPAY ==
[2021-07-02 19:33] VITALS: BP 133/77; PULSE 106; RESP 18; TEMP 37.8; O2SAT 100; BMI 44.6
--- NOTE | 2021-07-02 20:59 | EDS_ITS ---
HPI History of Present Illness Chief Complaint: General Illness Informant: patient Narrative Narrative: Patient is a 26-year-old female presenting with Covid-like symptoms. Patient developed headache, cough and scratchy throat within the last day. Denies any fever but does states she is been feeling cold. No associated nausea or vomiting. Normal bowel movements. No urinary symptoms. States she was not feeling right. She took her blood pressure at home and it was 190/134 with a heart rate of 106. She came to the emergency room for further evaluation of this. Patient has had possible Covid exposure and also notes that she works at local [employer]. [facility] Medical History Anemia Asthma Chronic neck and back pain Hypertension Seasonal allergies Shoulder pain Home Medications cyclobenzaprine 10 mg PO TID PRN PRN 05/28/19 [History Last Taken Unknown] naproxen 500 mg PO BID PRN #20 tab 05/28/19 [Rx Last Taken Unknown] phenazopyridine 100 mg tablet 100 mg PO TID PRN 0 Days #7 tab 08/04/19 [Rx Last Taken Unknown] Allergy/AdvReac Type Severity Reaction Status Date / Time amoxicillin trihydrate AdvReac Swelling Verified 06/06/20 13:38 [From Augmentin] potassium clavulanate AdvReac Swelling Verified 06/06/20 13:38 [From Augmentin] Surgical History History of Social History Smoking Status: Never smoker alcohol intake: current ROS ROS ED Constitutional Constitutional ED: Reports chills; Denies fever(s) Eyes Eyes: Denies blurry vision or loss of vision ENT ENT ED: Reports sore throat; Denies ear pain or rhinorrhea Cardiovascular Cardiovascular: Denies chest pain or dizziness Respiratory/Chest Respiratory/Chest: Denies dyspnea Gastrointestinal Gastrointestinal: Denies nausea or vomiting Genitourinary Genitourinary ED: Denies dysuria or hematuria Musculoskeletal Musculoskeletal: Reports back pain, myalgias and neck pain; Denies arthralgias Integumentary Denies rash or wounds Neurologic Neurologic: Reports headache(s); Denies focal weakness or weakness Psychiatric Psychiatric: Denies anxiety, behavioral changes or depression EXAM Physical Exam Const Vital Signs: 07/02/21 19:33 07/02/21 20:56 Temperature 100.1 F H Temperature Source Oral Pulse Rate 106 H Respiratory Rate 18 Respiratory Effort Short of Breath Blood Pressure 133/77 H Blood Pressure Mean 95 Pulse Ox 100 Oxygen Delivery Method Room Air Positive well nourished, well developed and no apparent distress General Appearance ED: well developed HEENT Reports normocephalic, TM's clear and moist mucous membranes atraumatic; Negative for tenderness Nose: no nasal discharge External Ear: external ears normal Tympanic Membrane ED: Yes TM's clear Mouth ED: Yes moist mucous membranes normal Eyes PERRL and EOMs intact bilaterally Neck full ROM, no lymphadenopathy, supple, no meningeal signs and no JVD Chest Wall inspection of chest normal Resp normal respiratory effort and normal air movement Cardio regular rate and regular rhythm GI normal to inspection, nondistended, normoactive bowel sounds Back/Spine no CVA tenderness Extremity normal to inspection and full ROM Neuro oriented x3 and no focal motor deficits Psych mental status grossly normal and thought process normal Skin no rashes or lesions noted and no wounds MDM MDM MDM Narrative Medical decision making narrative: Patient evaluated for 1 day of Covid-like symptoms. Rapid Covid test is positive. Patient given Motrin in the ER. As she has a history of asthma and also has a BMI of 44 she is a candidate for monoclonal antibody therapy. She is given referral to this. Instructed to alternate Tylenol and ibuprofen for symptoms at home. Discharge Plan Triage Chief Complaint: General Illness ED Provider: Ginette Guidry Dx/Rx/DC Orders Clinical Impression: COVID-19 virus infection, Headache Instructions: Coronavirus Disease 2019 (COVID-19): Caring for Yourself or Others Prescriptions: No Action phenazopyridine [Pyridium] 100 mg tablet 100 mg PO TID PRN (Reason: pain) 0 Days Qty: 7 RF: 0 cyclobenzaprine 10 MG tablet 10 mg PO TID PRN PRN (Reason: Pain) RF: 0 naproxen 500 MG tablet 500 mg PO BID PRN Qty: 20 RF: 0 Other Ambulatory Orders: COVID Outpatient Monoclonal Antibody Referral (Routine) Location: None Selected Ordered By: Dr. Ginette Guidry Primary Care Provider: Ganta,Lyndsay Referrals: Lyndsay Mccloud MD [Primary Care Provider] - Disposition Disposition: Home, Self Care
[2021-07-02] MEDS: Ibuprofen 600 MG Tablet PO (21:12)
== END 2021-07-02 21:39 | disposition home or self-care (01) ==
PROVIDERS: Emergency Provider Emergency Medicine; PCP Internal Medicine
DX: U07.1 COVID-19 (principal); R51.9 Headache, unspecified; J45.909 Unspecified asthma, uncomplicated; I10 Essential (primary) hypertension
CPT/HCPCS: 87426; 99283

== ENCOUNTER 2022-04-30 19:44 | Emergency (ER) | payer MEDICAID, SELFPAY ==
[2022-04-30 19:45] VITALS: BP 144/103; PULSE 98; RESP 16; TEMP 36.6; O2SAT 98; BMI 46.9
--- NOTE | 2022-04-30 20:08 | EDS_ITS ---
HPI History of Present Illness Chief Complaint: Dental Detail of Chief Complaint: Left lower jaw pain since yesterday Informant: patient Narrative Narrative: Patient presents to the emergency department with complaint of left lower jaw pain since yesterday. Patient states that she initially had pain about a month ago but then it resolved. Patient had pain a week ago but got better for a couple of days and then started having pain again yesterday. Patient states that it hurts to chew on the left side. She denies any trauma. She denies fever. Patient called a dentist and has an appointment but not till May. Patient rates her pain a 10 out of 10. Prior similar symptoms: No PFSH PFSH Medical History Anemia Asthma Chronic neck and back pain Hypertension Seasonal allergies Shoulder pain Home Medications clindamycin HCl 300 mg capsule (Cleocin HCl) 300 mg PO Q6H #40 CAPSULES 04/30/22 [Rx Last Taken Unknown] hydrocodone-acetaminophen 5-325mg 5mg-325mg 1 tab PO Q4H PRN PRN Pain 3 days #14 TABLETS 04/30/22 [Rx Last Taken Unknown] Allergy/AdvReac Type Severity Reaction Status Date / Time amoxicillin trihydrate AdvReac Swelling Verified 04/30/22 19:45 [From Augmentin] potassium clavulanate AdvReac Swelling Verified 04/30/22 19:45 [From Augmentin] Surgical History History of Social History Smoking Status: Never smoker alcohol intake: current ROS ROS ED Review of Systems ROS Unobtainable: other Constitutional Constitutional ED: Reports lethargy; Denies chills, fever(s), sweats or weight loss Eyes Eyes: Denies blurry vision, change in vision or diplopia ENT ENT ED: Reports other Details: Dental pain/jaw pain ; Denies rhinorrhea or sore throat Cardiovascular Cardiovascular: Reports chest pain and racing heartbeat; Denies orthopnea Respiratory/Chest Respiratory/Chest: Reports dyspnea and dyspnea on exertion; Denies cough, orthopnea or sputum Gastrointestinal Gastrointestinal: Denies abdominal pain, diarrhea, nausea or vomiting Genitourinary Genitourinary ED: Denies dysuria, hematuria or urinary frequency Musculoskeletal Musculoskeletal: Denies arthralgias, back pain, myalgias or neck pain Integumentary Denies abscess, Abrasions or rash Neurologic Neurologic: Denies headache(s) or weakness Psychiatric Psychiatric: Denies anxiety, depression or suicidal thoughts Endocrine Endocrinology: Denies polydipsia, polyphagia or polyuria Hematologic/Lymphatic Hematologic/Lymphatic: Denies easy bleeding, easy bruising or lymphadenopathy Allergic/Immunologic Allergic/Immunologic ED: Denies mouth swelling, tongue swelling or urticaria EXAM Physical Exam Const Vital Signs: 04/30/22 19:45 Temperature 97.9 F Temperature Source Temporal Pulse Rate 98 Respiratory Rate 16 Blood Pressure 144/103 H Blood Pressure Mean 116 Pulse Ox 98 Oxygen Delivery Method Room Air Positive well nourished and well developed General Appearance ED: well developed and NAD HEENT Reports TM's clear and moist mucous membranes HEENT Narrative: Patient has tenderness palpation diffusely to the lower premolars as well as canine incisor bottom left. No obvious dental caries noted. No gingival eryt celestina or abscess noted. Patient does have some mild soft tissue swelling over the angle of the left mandible. No adenopathy. No trismus on exam. normocephalic and atraumatic; Negative for trauma or tenderness Tympanic Membrane ED: Yes TM's clear Eyes PERRL and EOMs intact bilaterally General Eye ED: Negative for pale conjunctiva or scleral icterus Neck no lymphadenopathy, supple and no JVD General: Negative for tenderness Chest Wall inspection of chest normal and palpation of chest normal Chest: Negative for tenderness Resp normal respiratory effort and clear to auscultation bilaterally Effort and Inspection: Negative for respiratory distress or pain with movement Auscultation: Negative for rhonchi, wheezes or diminished lung sounds Cardio regular rate, regular rhythm, S1 normal heart sound, S2 normal heart sound and no murmurs Peripheral Pulses: pulses 2+ throughout GI normal to inspection, nondistended, normoactive bowel sounds, soft to palpation, non-tender, non-distended and no masses Back/Spine no CVA tenderness and no thoracic nor lumbar tenderness Extremity normal to inspection General Extremety ED: Negative for edema General Extremity: Negative for edema Neuro oriented x3, CN's II-XII intact bilaterally, no sensory deficits noted and gait normal Sensorium / Orientation: awake, alert, oriented to person, oriented to place and oriented to time Motor Exam: strength 5/5 throughout and strength abnormal Psych mental status grossly normal Skin no rashes or lesions noted and no wounds MDM MDM MDM Narrative Medical decision making narrative: I suspect her jaw pain is related to dental pain. Patient will be started on clindamycin and given a few [place] for pain. She is given a list of dentists in the area to try and contact potentially get in sooner than May. Patient advised to return if worsening pain, fever, redness or swelling, or condition worsen anyway. Discharge Plan Triage Chief Complaint: Dental ED Provider: Corazon Amezquita Dx/Rx/DC Orders Clinical Impression: Pain, dental Instructions: ED Dental Pain Prescriptions: New clindamycin HCl [Cleocin HCl] 300 mg capsule 300 mg PO Q6H Qty: 40 0RF hydrocodone-acetaminophen [hydrocodone-acetaminophen] 5-325 mg tablet 1 tab PO Q4H PRN PRN (Reason: Pain) 3 Days Qty: 14 0RF Primary Care Provider: Lyndsay Mccloud Referrals: Lyndsay Mccloud MD [Primary Care Provider] - Activity Restrictions/Additional Instructions: Please see a dentist at the earliest possible time. Disposition Disposition: Home, Self Care
[2022-04-30] MEDS: Clindamycin HCl 150 MG Capsule 300 MG PO (20:17)
[2022-04-30] MEDS: HYDROcodone Bitartrate/Apap 5/325 Tablet PO (20:17)
== END 2022-04-30 20:21 | disposition home or self-care (01) ==
PROVIDERS: Emergency Provider Emergency Medicine; PCP Internal Medicine; Visit Provider Emergency Medicine
DX: K08.89 Other specified disorders of teeth and supporting structures (principal); I10 Essential (primary) hypertension; R68.84 Jaw pain; R06.00 Dyspnea, unspecified
CPT/HCPCS: 99282

== ENCOUNTER 2023-01-08 15:52 | Emergency (ER) | payer MEDICAID, SELFPAY ==
[2023-01-08 15:54] VITALS: BP 141/93; PULSE 97; RESP 16; TEMP 36.7; O2SAT 99; BMI 45.1
[2023-01-08 16:09] VITALS: BP 150/96; PULSE 87; RESP 14; TEMP 36.6; O2SAT 98
[2023-01-08] MEDS: Ketorolac 15 MG/ML Vial IV (16:21)
[2023-01-08] MEDS: Ondansetron 4 MG/2 ML Vial IV (16:21)
--- NOTE | 2023-01-08 16:28 | EX.ED.DYSGE1 ---
HPI History of Present Illness Chief Complaint: Chest Pain Detail of Chief Complaint: Right upper quadrant pain, documented fever 102.0 ?F, ANC HPI narrative Informant: patient Onset/Context/Timing Onset: Hours (Right upper quadrant pain radiating to her chest started 1 to 2 hours prior to her arrival.) and Days (Upper respiratory symptoms) Context: Sudden Onset Timing: Continuous Quality: Pain right upper quadrant radiating through the back Location: Right upper quadrant Current Severity: Mild Maximum Severity: Moderate Worsened by: Past week intolerance to food Relieved by: Nothing Associated Symptoms Associated Symptoms: Nausea Narrative Narrative: Patient is a 27-year-old woman with history of gestational hypertension, asthma who was sent to the emergency room because the nurse practitioner at the urgent care was concerned for PE. Patient denies history of PE or DVT. Patient denies leg pain, swelling or discoloration. Patient has no risk factors for PE or DVT. (Patient is PERC negative) Patient had upper respiratory symptoms of congestion, sore throat and cough for the past couple of days. She had a document temperature of 102.0 ?F yesterday. She went to the urgent counter because of her upper respiratory symptoms. She has had intermittent wheezing. The wheezing improves with treatments. She denies headache, photophobia, neck pain or neck stiffness. She denies GI or symptoms. She denies neurologic symptoms. Her mother and sister recently had their gallbladders removed. Prior similar symptoms: Yes Recent Illness/Hospitalization: No PFSH PFSH Medical History Anemia Asthma Chronic neck and back pain Hypertension Seasonal allergies Shoulder pain Home Medications clindamycin HCl 300 mg capsule (Cleocin HCl) 300 mg PO Q6H #40 CAPSULES 04/30/22 [Rx Last Taken Unknown] hydrocodone-acetaminophen 5-325mg 5mg-325mg 1 tab PO Q4H PRN PRN Pain 3 days #14 TABLETS 04/30/22 [Rx Last Taken Unknown] doxycycline monohydrate 100 mg capsule 100 mg PO BID #14 CAPSULES 01/08/23 [Rx Last Taken Unknown] Allergy/AdvReac Type Severity Reaction Status Date / Time amoxicillin trihydrate AdvReac Swelling Verified 01/08/23 15:53 [From Augmentin] potassium clavulanate AdvReac Swelling Verified 01/08/23 15:53 [From Augmentin] Surgical History History of Social History (Updated 01/08/23 @ 16:[address] Puma Oneill MD) Smoking Status: Never smoker alcohol intake: current substance use type: does not use ROS ROS ED Constitutional Constitutional ED: Reports fever(s); Denies chills or sweats Eyes Eyes: Denies blurry vision, change in vision or diplopia ENT ENT ED: Reports rhinorrhea; Denies ear pain Cardiovascular Cardiovascular: Reports chest pain and other Details: Chest pain started after the right upper quadrant pain. The chest pain is on the right side. There is no pleuritic component. ; Denies orthopnea, palpitations, paroxysmal nocturnal dyspnea or racing heartbeat Respiratory/Chest Respiratory/Chest: Reports cough; Denies dyspnea, dyspnea on exertion, orthopnea, paroxysmal nocturnal dyspnea or sputum Gastrointestinal Gastrointestinal: Reports abdominal pain and nausea; Denies constipation, diarrhea or vomiting Genitourinary Genitourinary ED: Denies dysuria, hematuria or urinary frequency Musculoskeletal Musculoskeletal: Reports back pain; Denies arthralgias, myalgias or neck pain Integumentary Denies rash Neurologic Neurologic: Denies headache(s), paresthesias or weakness Psychiatric Psychiatric: Denies anxiety or depression Endocrine Endocrinology: Denies cold intolerance or heat intolerance Hematologic/Lymphatic Hematologic/Lymphatic: Reports systems reviewed and no addt'l complaints, except as documented EXAM Physical Exam Const Vital Signs: 01/08/23 15:54 01/08/23 16:09 01/08/23 16:09 Temperature 98.1 F 97.8 F 97.8 F Temperature Source Temporal Temporal Temporal Pulse Rate 97 87 87 Respiratory Rate 16 14 14 Respiratory Effort Blood Pressure 141/93 H 150/96 H 150/96 H Blood Pressure Mean 109 114 114 Pulse Ox 99 98 98 Oxygen Delivery Method Room Air Room Air Room Air 01/08/23 16:09 Temperature Temperature Source Pulse Rate Respiratory Rate Respiratory Effort Normal Non-Labored Blood Pressure Blood Pressure Mean Pulse Ox Oxygen Delivery Method Positive well nourished, well developed and obese General Appearance ED: well developed and NAD; Negative for cyanotic, diaphoretic or pallor Nutritional Appearance: obese HEENT Reports moist mucous membranes HEENT Narrative: Head is atraumatic normocephalic. Ears are normal. Nares patent with slight discharge. Posterior pharynx out erythema or exudate. Uvula is midline. There is no deviation of tongue with protrusion. Eyes PERRL and EOMs intact bilaterally General Eye ED: Negative for pale conjunctiva or scleral icterus Neck no lymphadenopathy, supple and no JVD Chest Wall inspection of chest normal and palpation of chest normal Resp normal respiratory effort and clear to auscultation bilaterally Cardio regular rate, regular rhythm, S1 normal heart sound, S2 normal heart sound and no murmurs GI normal to inspection, nondistended, normoactive bowel sounds, non-distended and no masses; Negative for non-tender or hepatosplenomegaly Palpation: soft, tender RUQ and guarding RLQ (Clinical Segovia sign) Back/Spine no CVA tenderness Extremity normal to inspection Extremity Narrative: There is no asymmetry, swelling, discoloration, leg vein distention, palpable cords or tenderness along the distribution of the deep venous system. General Extremety ED: Negative for edema or tenderness General Extremity: Negative for edema Neuro oriented x3, CN's II-XII intact bilaterally and no sensory deficits noted Sensorium / Orientation: alert Motor Exam: strength 5/5 throughout Psych mental status grossly normal Skin no rashes or lesions noted, no wounds and skin turgor normal General Skin Exam: Negative for jaundice or pallor MDM MDM MDM Narrative Medical decision making narrative: Patient is PERC negative. There is no concern for PE. Concern for possible viral infection versus pneumonia. For this reason chest x-ray was obtained. Since pain started 1 hour after eating a chicken lexus and there is a family history of cholelithiasis concerned this may represent biliary colic. Ultrasound was not ordered since she ate a fatty meal and would have to wait until 10:00 for an accurate reading. If her laboratory results are elevated will wait until 10 otherwise will order outpatient ultrasound. History & Record Review Additional record(s) reviewed:: Prior ED visit (There are no inpatient records. Patient has had several ER visits from [place] infection to exacerbation asthma etc.) Lab Data Attestation: I reviewed the patient's lab results. Lab results narrative: CBC is normal except for lymphocytosis which goes along with viral upper respiratory infection. Comprehensive metabolic panel is unremarkable. AST is slightly elevated 38. Alk phos is normal. Total bili is normal. Lipase is. Labs: Laboratory Results - last 24 hr 01/08/23 01/08/23 16:20 16:20 WBC 4.8 RBC 4.77 Hgb 13.3 Hct 42.0 MCV 88.1 MCH 27.9 MCHC 31.7 L RDW Std Deviation 43.0 RDW Coeff of Edmar 13.2 Plt Count 270 MPV 10.1 Immature Gran % (Auto) 0.000 Neut % (Auto) 35.5 L Lymph % (Auto) 43.9 H Dent % (Auto) 16.0 H Eos % (Auto) 3.8 Baso % (Auto) 0.8 Absolute Neuts (auto) 1.7 L Absolute Lymphs (auto) 2.09 Nucleated RBC % 0 Sodium 140 Potassium 4.1 Chloride 107 Carbon Dioxide 28.0 Anion Gap 5 BUN 13 Creatinine 0.90 Estim Creat Clear Calc 85.24 Est GFR (MDRD) Af Amer 96 Est GFR (MDRD) Non-Af 79 BUN/Creatinine Ratio 14.4 Glucose 84 Calcium 8.7 Total Bilirubin 0.20 AST 38 H ALT 55 Alkaline Phosphatase 78 Total Protein 6.9 Albumin 3.1 L Globulin 3.8 Albumin/Globulin Ratio 0.8 L Lipase 95 Radiography Chest X-Ray - ED: 2 View and Read by ED Physician (2 view chest x-ray reveals normal cardiac silhouette and size. There is slight increased interstitial markings noted at the base. This could represent a viral pneumonia. Perihilar region normal. Ostia structures normal.) Diagnostic Testing: Clinical Impression(s) from Imaging Studies Chest X-Ray 01/08/23 16:33 IMPRESSION: Prominent interstitial markings in the lower lobes more pronounced in the right possibly due to viral pneumonia.. Electronically Signed: Tom Portillo MD at 16:47 EDT , Treatment and Re-Evaluation :: Patient was read at 11/03/2004. Patient was informed of her laboratory results and chest x-ray results. Will cover for atypical pneumonia. Order for outpatient ultrasound was ordered. Report should go to her primary care physician at the [facility] Dr. Mccauley. Discharge Plan Triage Chief Complaint: Chest Pain ED Provider: Puma Oneill Dx/Rx/DC Orders Clinical Impression: Infiltrate of lower lobe of right lung present on imaging study, History of asthma, Colicky right upper quadrant pain, Fever, Elevated blood pressure reading, Biliary colic symptom Instructions: ED Abdominal Pain Gallstone Poss, ED Hypertension, To Be Confirmed, ED Pneumonia (Adult) Prescriptions: New doxycycline monohydrate 100 mg capsule 100 mg PO BID Qty: 14 0RF No Action clindamycin HCl [Cleocin HCl] 300 mg capsule 300 mg PO Q6H Qty: 40 0RF hydrocodone-acetaminophen [hydrocodone-acetaminophen] 5-325 mg tablet 1 tab PO Q4H PRN PRN (Reason: Pain) 3 Days Qty: 14 0RF Primary Care Provider: Lyndsay Mccloud Referrals: Lyndsay Mccloud MD [Primary Care Provider] - 1-2 Weeks Activity Restrictions/Additional Instructions: 1. You need to follow-up with your doctor for blood pressure recheck in 1 to 2 weeks 2. You will need to schedule an outpatient ultrasound 3. Take antibiotics until gone Disposition Disposition: Home, Self Care
--- NOTE | 2023-01-08 16:33 | RAD_ITS ---
STUDY: X-RAY CHEST REASON FOR EXAM: Female, 27 years old. Cough, fever 102.0 ?F TECHNIQUE: PA and lateral COMPARISON: None. FINDINGS: Prominence of the interstitial markings in the lower lobes slightly more pronounced on the right possibly inflammatory.. There is no demonstrated pleural abnormality. Normal size heart. Normal mediastinum and brown. Normal visualized pulmonary arteries. Normal visualized aortic arch and descending thoracic aorta. Normal visualized thoracic spine. Normal visualized ribs, clavicles, and shoulders. There is no demonstrated abnormality of the visualized soft tissue structures of the upper abdomen. RAD/Chest PA and Lateral IMPRESSION: Prominent interstitial markings in the lower lobes more pronounced in the right possibly due to viral pneumonia.. Electronically Signed: Tom Portillo MD at 16:47 EDT ,
[2023-01-08 16:36] LABS: Absolute Lymphocyte Count 2.09 X10^3/uL (0.83-4.51); Absolute Neutrophil Count 1.7 X10^3/uL (2.0-7.7); Basophil# 0.04 X10^3/uL; Basophil% 0.8 % (0-1); Eosinophil# 0.18 X10^3/uL; Eosinophils% 3.8 % (0-5); Hemoglobin 13.3 g/dL (12.0-15.0); Lymphocyte # 2.09 X10^3/ul (0.83-4.51); Lymphocyte % 43.9 % (19-41); Mean Corp Hgb Conc 31.7 g/dL (32-36); Mean Corpuscular Hgb 27.9 pg (27.0-32.0); Mean Corpuscular Volume 88.1 fL (81-99); Mean Platelet Vol. 10.1 fl (6.2-12.0); Monocyte# 0.76 X10^3/uL; NRBC Flagged by Analyzer 0 % (0-5); Neutrophil # 1.69 X10^3/uL (2.7-7.7); Neutrophil % 35.5 % (47-70); Platelet Count 270 K/mm3 (150-450); RBC Distribution Width CV 13.2 % (11.6-14.6); Red Blood Count 4.77 M/mm3 (4.2-5.4); White Blood Count 4.8 K/mm3 (4.4-11.0)
[2023-01-08 17:00] LABS: ALB/GLOB Ratio 0.8 RATIO (0.9-2.4); AST(SGOT) 38 U/L (15-37); Alanine Aminotransfer ALT/SGPT 55 U/L (13-56); Albumin, Serum 3.1 g/dL (3.2-5.0); Alkaline Phosphatase 78 U/L (45-117); Anion Gap 5 (5-15); BUN 13 mg/dL (7-18); BUN/Creat Ratio 14.4 RATIO (10-20); Calcium,Total 8.7 mg/dL (8.5-10.1); Chloride 107 mmol/L (98-107); EST Glomerular Filtration Rate 79 mL/min (>60); Est Glom Filt Rate - Afr Amer 96 mL/min (>60); Estimated Creatinine Clearance 85.24 ml/min; Globulin 3.8 g/dL (2.2-4.2); Glucose 84 mg/dL (74-106); Lipase 95 U/L (73-393); Potassium 4.1 mmol/L (3.5-5.1); Protein, Total 6.9 g/dL (6.4-8.2); Sodium Level 140 mmol/L (136-145)
[2023-01-08 17:14] VITALS: BP 116/68; PULSE 60; RESP 16; O2SAT 100
== END 2023-01-08 17:36 | disposition home or self-care (01) ==
PROVIDERS: Emergency Provider Emergency Medicine; PCP Internal Medicine; Visit Provider Emergency Medicine
DX: J18.9 Pneumonia, unspecified organism (principal); R10.11 Right upper quadrant pain; R03.0 Elevated blood-pressure reading, without diagnosis of hypertension; R50.9 Fever, unspecified; J45.909 Unspecified asthma, uncomplicated; E66.9 Obesity, unspecified
CPT/HCPCS: 71046; 80053; 83690; 85025; 96374; 96375; 99283; A4216; J2405

== ENCOUNTER → 2023-01-14 | Outpatient (CLI) | payer MEDICAID, SELFPAY ==
--- NOTE | 2023-01-14 09:19 | US_ITS ---
STUDY: ABDOMINAL ULTRASOUND - RIGHT UPPER QUADRANT REASON FOR VISIT: Female, 28 years old . Abdominal pain. TECHNIQUE: Ultrasound evaluation of the right upper quadrant was performed with real-time and static neal-scale imaging. TECHNICAL QUALITY: Limited. Examination limited by bowel gas. COMPARISON: None. FINDINGS: Liver: The liver measures 16.3 cm. There is increased echogenicity consistent with fatty infiltration. The bile ducts are within normal limits. There is hepatic color flow. The direction of portal flow is hepatopetal. There is no demonstrated mass lesion. Gallbladder: Normal distended gallbladder. The gallbladder wall measures 2.1 mm. There is a negative sonographic Segovia''s sign. There is no pericholecystic fluid. There are no gallstones. Common Bile Duct (C.B.D.): The common bile duct measures 2.9 mm. Pancreas: Normal size of the head, body of the pancreas. The tail portion is obscured due to overlying bowel gas. There is normal echogenicity of the pancreas. There is no demonstrated pancreatic mass or cyst. Right Kidney: Normal size of the right kidney. The right kidney measures 11.1 cm x 5.5 cm x 4.5 cm. Normal renal cortex. The right cortex measures 1.1 cm. There is no demonstrated renal mass or cyst. There is no right hydronephrosis. US/Gallbladder IMPRESSION: Fatty infiltration of the liver. Electronically Signed: Graham Carey MD at 15:27 EDT ,
== END | disposition home or self-care (01) ==
LOC: RAD 09:17 → US 09:25
PROVIDERS: PCP Internal Medicine; Visit Provider Emergency Medicine
DX: R10.11 Right upper quadrant pain (principal)
CPT/HCPCS: 76705

== ENCOUNTER 2023-02-21 17:28 | Emergency (ER) | payer MEDICAID, SELFPAY ==
[2023-02-21 17:28] VITALS: BP 126/91; PULSE 100; RESP 18; TEMP 36.1; O2SAT 100
[2023-02-21 17:53] VITALS: BMI 45.9
--- NOTE | 2023-02-21 18:42 | EX.ED.DYSGE1 ---
HPI History of Present Illness Chief Complaint: Dizziness Narrative Narrative: 28-year-old female with history of vertigo presenting with vertiginous symptoms. She states she was told several times as a child that she had vertigo. She states that usually prescribe something for her and this works. She does not know what it is called. She is only had it as a prescription. She had a mild headache. States her symptoms are worse when she gets up to walk or when she turns her head. PFSH PFSH Medical History Anemia Asthma Chronic neck and back pain Hypertension Seasonal allergies Shoulder pain Home Medications meclizine 25 mg chewable tablet 25 mg PO TID PRN dizziness #30 tabs 02/21/23 [Rx Last Taken Unknown] phentermine 15 mg capsule 15 mg PO DAILY 02/21/23 [History Last Taken Unknown] Allergy/AdvReac Type Severity Reaction Status Date / Time amoxicillin trihydrate AdvReac Swelling Verified 02/21/23 17:54 [From Augmentin] potassium clavulanate AdvReac Swelling Verified 02/21/23 17:54 [From Augmentin] Surgical History History of Social History Smoking Status: Never smoker alcohol intake: current substance use type: does not use ROS ROS ED ROS Narrative Vertiginous dizziness Constitutional Constitutional ED: Denies chills, fever(s) or sweats Eyes Eyes: Denies blurry vision or change in vision ENT ENT ED: Denies ear pain or sore throat Cardiovascular Cardiovascular: Denies chest pain, palpitations or racing heartbeat Respiratory/Chest Respiratory/Chest: Denies cough, dyspnea or sputum Gastrointestinal Gastrointestinal: Reports nausea; Denies abdominal pain, constipation, diarrhea or vomiting Genitourinary Genitourinary ED: Denies dysuria, hematuria or urinary frequency Musculoskeletal Musculoskeletal: Denies arthralgias, myalgias or neck pain Integumentary Denies abscess, Abrasions or rash Neurologic Neurologic: Reports headache(s); Denies paresthesias or weakness Psychiatric Psychiatric: Denies anxiety, depression, suicidal ideation or suicidal thoughts Endocrine Endocrinology: Denies polydipsia or polyuria EXAM Physical Exam Const Vital Signs: 02/21/23 17:28 02/21/23 17:56 02/21/23 19:13 Temperature 97 F L Temperature Source Temporal Pulse Rate 100 88 Respiratory Rate 18 18 Respiratory Effort Normal Non-Labored Respiratory Pattern Normal Blood Pressure 126/91 H 126/66 H Blood Pressure Mean 102 86 Pulse Ox 100 99 Oxygen Delivery Method Room Air Room Air 02/21/23 21:15 02/21/23 22:18 Temperature Temperature Source Pulse Rate 80 82 Respiratory Rate 18 Respiratory Effort Respiratory Pattern Blood Pressure 126/80 H 117/59 L Blood Pressure Mean 95 Pulse Ox 100 99 Oxygen Delivery Method Room Air Positive well nourished General Appearance ED: NAD; Negative for pallor HEENT Reports moist mucous membranes HEENT Narrative: Positive Hillman-Hallpike. Nystagmus noted. Eyes PERRL and EOMs intact bilaterally Chest Wall inspection of chest normal Resp normal respiratory effort Cardio regular rate and regular rhythm Neuro oriented x3 and CN's II-XII intact bilaterally Sensorium / Orientation: alert Motor Exam: strength 5/5 throughout Psych mental status grossly normal Skin no rashes or lesions noted General Skin Exam: Negative for jaundice or pallor MDM MDM MDM Narrative Medical decision making narrative: Patient's exam is consistent with benign positional vertigo. She is given meclizine and Phenergan. Will reevaluate her to see if her dizziness is improving. I do not believe she did any lab work or imaging. I reevaluation the patient's dizziness is better. She is ambulatory. I counseled her that I will write her prescription for meclizine. I also counseled her that this is also [id number] if she runs out she can buy Dramamine. Return precautions discussed. Impression: 1. Benign positional vertigo Discharge Plan Triage Chief Complaint: Dizziness ED Provider: Franco Jacobs Dx/Rx/DC Orders Instructions: ED BPV Vertigo Prescriptions: New meclizine 25 mg tablet,chewable 25 mg PO TID PRN (Reason: dizziness) Qty: 30 0RF No Action phentermine 15 mg capsule 15 mg PO DAILY Label Comments: Take 1 capsule by mouth once daily for 30 days. Primary Care Provider: Lyndsay Mccloud Referrals: Lyndsay Mccloud MD [Primary Care Provider] - Disposition Disposition: Home, Self Care Discharge Date/Time: 02/21/23 22:21
[2023-02-21] MEDS: Meclizine HCl 25 MG Tablet PO (19:05)
[2023-02-21] MEDS: proMETHazine 25 MG/ML Syringe 12.5 MG IM (19:06)
[2023-02-21 19:13] VITALS: BP 126/66; PULSE 88; RESP 18; O2SAT 99
[2023-02-21 21:15] VITALS: BP 126/80; PULSE 80; RESP 18; O2SAT 100
[2023-02-21 22:18] VITALS: BP 117/59; PULSE 82; O2SAT 99
== END 2023-02-21 22:21 | disposition home or self-care (01) ==
PROVIDERS: Emergency Provider Student in an Organized Health Care Education/Training Program; PCP Internal Medicine; Visit Provider Student in an Organized Health Care Education/Training Program
DX: H81.10 Benign paroxysmal vertigo, unspecified ear (principal); I10 Essential (primary) hypertension
CPT/HCPCS: 96372; 99283

== ENCOUNTER 2023-11-29 01:51 | Emergency (ER) | payer MEDICAID, SELFPAY ==
[2023-11-29 02:13] VITALS: BP 131/90; PULSE 109; RESP 20; TEMP 37.3; O2SAT 100; BMI 47.8
--- NOTE | 2023-11-29 02:15 | RAD_ITS ---
INDICATION: cough EXAMINATION/TECHNIQUE: X-RAY - XR Chest 1 View COMPARISON: January 08, 2023. FINDINGS: LINES/DEVICES: None. LUNGS: No consolidation, edema or effusion. No pneumothorax. MEDIASTINUM AND CARDIOVASCULAR STRUCTURES: Cardiac silhouette not enlarged. BONES AND SOFT TISSUES: Unremarkable. RAD/Chest 1 View (Portable) IMPRESSION: No radiographic evidence of acute cardiopulmonary disease. Electronically Signed: Sonido Medrano MD at 3:21 EST ,
--- NOTE | 2023-11-29 02:16 | EX.ED.DYSGE1 ---
HPI History of Present Illness Chief Complaint: Cold Sx Informant: patient and family Narrative Narrative: 28-year-old female presenting to the emergency room with headache cough congestion and dyspnea. Patient has a history of asthma. She states that most of the people she has been around has tested positive for influenza B. Current asthma therapy includes an albuterol MDI. She has a nebulizer at home but has not used it. She does not believe she has had any fever. No vomiting or diarrhea. No sore throat. PFSH PFSH Medical History Anemia Asthma Chronic neck and back pain Hypertension Seasonal allergies Shoulder pain Home Medications meclizine 25 mg chewable tablet 25 mg PO TID PRN dizziness #30 tabs 02/21/23 [Rx Last Taken Unknown] phentermine 15 mg capsule 15 mg PO DAILY 02/21/23 [History Last Taken Unknown] Allergy/AdvReac Type Severity Reaction Status Date / Time amoxicillin trihydrate AdvReac Swelling Verified 02/21/23 17:54 [From Augmentin] potassium clavulanate AdvReac Swelling Verified 02/21/23 17:54 [From Augmentin] Surgical History History of Social History Smoking Status: Never smoker alcohol intake: current substance use type: does not use ROS ROS ED Constitutional Constitutional ED: Reports chills; Denies fever(s) or weight loss Eyes Eyes: Denies change in vision or diplopia ENT ENT ED: Reports rhinorrhea; Denies ear pain or sore throat Cardiovascular Cardiovascular: Reports chest pain; Denies orthopnea, palpitations or racing heartbeat Respiratory/Chest Respiratory/Chest: Reports cough, dyspnea and dyspnea on exertion; Denies orthopnea Gastrointestinal Gastrointestinal: Denies abdominal pain, diarrhea, nausea or vomiting Genitourinary Genitourinary ED: Denies dysuria, hematuria or urinary frequency Musculoskeletal Musculoskeletal: Reports myalgias; Denies arthralgias Integumentary Denies abscess or rash Neurologic Neurologic: Reports headache(s); Denies weakness Psychiatric Psychiatric: Denies anxiety, depression, suicidal ideation or suicidal thoughts Endocrine Endocrinology: Denies polydipsia, polyphagia or polyuria Allergic/Immunologic Allergic/Immunologic ED: Denies mouth swelling, tongue swelling or urticaria EXAM Physical Exam Const Vital Signs: 11/29/23 02:13 11/29/23 02:17 11/29/23 02:18 Temperature 99.1 F 99.1 F Temperature Source Oral Oral Pulse Rate 109 H 113 H Respiratory Rate 20 H 20 H Respiratory Effort Short of Breath Respiratory Pattern Normal Blood Pressure 131/90 H 131/90 H Blood Pressure Mean 103 103 Pulse Ox 100 100 Oxygen Delivery Method Room Air Room Air 11/29/23 02:24 Temperature Temperature Source Pulse Rate 105 H Respiratory Rate 18 Respiratory Effort Respiratory Pattern Normal Blood Pressure Blood Pressure Mean Pulse Ox Oxygen Delivery Method Positive well nourished, well developed and obese General Appearance ED: well developed Nutritional Appearance: obese HEENT Reports normocephalic, head/scalp atraumatic and moist mucous membranes HEENT Narrative: Mild nasal congestion Eyes PERRL and EOMs intact bilaterally Neck no lymphadenopathy, supple and no JVD Chest Wall inspection of chest normal and palpation of chest normal Resp normal respiratory effort Auscultation: wheezes expiratory wheezes and diminished lung sounds Cardio regular rate, regular rhythm and no murmurs Rate: other Other Details: Heart rate is 91 on my examination GI normal to inspection, nondistended, normoactive bowel sounds and non-tender Palpation: soft Back/Spine no CVA tenderness and normal ROM Extremity normal to inspection General Extremety ED: Negative for edema General Extremity: Negative for edema Neuro oriented x3 and CN's II-XII intact bilaterally Sensorium / Orientation: alert Motor Exam: strength 5/5 throughout Psych mental status grossly normal Mood & Affect: Negative for depressed or tearful Skin no rashes or lesions noted and no wounds MDM MDM MDM Narrative Medical decision making narrative: My independent interpretation of the chest x-ray is no acute process. Specifically no pneumonia. Patient received a albuterol and DuoNeb as well as prednisone. She is influenza B positive. Patient is out of the window for Tamiflu. I can write for some additional prednisone over the next 4 days and would recommend albuterol aerosols at home. She should continue to consider herself infectious. History & Record Review Discussion w/independent historian: Patient and Family Lab Data Attestation: I reviewed the patient's lab results. Radiography Diagnostic Testing: Clinical Impression(s) from Imaging Studies Chest X-Ray 11/29/23 02:15 IMPRESSION: No radiographic evidence of acute cardiopulmonary disease. Electronically Signed: Sonido Medrano MD at 3:21 EST , Discharge Plan Triage Chief Complaint: Cold Sx ED Provider: Tom Merritt Dx/Rx/DC Orders Prescriptions: No Action phentermine 15 mg capsule 15 mg PO DAILY Patient Comments: Take 1 capsule by mouth once daily for 30 days. meclizine 25 mg tablet,chewable 25 mg PO TID PRN (Reason: dizziness) Qty: 30 0RF Primary Care Provider: Lyndsay Mccloud Referrals: Lyndsay Mccloud MD [Primary Care Provider] -
[2023-11-29 02:17] VITALS: BP 131/90; PULSE 113; RESP 20; TEMP 37.3; O2SAT 100
[2023-11-29 02:24] VITALS: PULSE 105; RESP 18
[2023-11-29] MEDS: Albuterol 2.5 MG/3 ML VIAL.NEB. INHALATION (02:24)
[2023-11-29] MEDS: predniSONE 20 MG Tablet 60 MG PO (02:24)
[2023-11-29] MEDS: Ipratropium/Albuterol Sulfate 3 ML AMPUL.NEB INHALATION (02:24)
--- OUTSIDE RECORDS SUMMARY | 2023-11-29 02:27 | XMS RPT_ITS | CCD ---
Author Name Unknown Address [email or web address] [facility] [address] [place] [address] Organization [facility] Care Team Providers Care Ballet Professor Name Role Phone Lyndsay Mccloud MD Primary Care Provider GANTA, LYNDSAY Primary Care Unavailable AVA PARKER Attending Unavailable GANTA, LYNDSAY Primary Care Unavailable GANTA, LYNDSAY Primary Care Unavailable GANTA, LYNDSAY Attending Unavailable GANTA, LYNDSAY Primary Care Unavailable GANTA, LYNDSAY Referring Unavailable GANTA, LYNDSAY Primary Care Unavailable GANTA, LYNDSAY Attending Unavailable GANTA, LYNDSAY Primary Care Unavailable EMANI, MIGDALIA Referring Unavailable GANTA, LYNDSAY Primary Care Unavailable GANTA, LYNDSAY Primary Care Unavailable EMANI, MIGDALIA Attending Unavailable GANTA, LYNDSAY Primary Care Unavailable CONCHITA PARDO Attending Unavailable GANTA, LYNDSAY Primary Care Unavailable GANTA, LYNDSAY Primary Care Unavailable AVA PARKER Attending Unavailable Lyndsay Mccloud MD Primary Care Provider Allergies Allergy Classification Reported Allergen(s) Allergy Type Date of Onset Reaction(s) Facility (17 sources) Amoxicillin / Clavulanate; Translations: [AMOXICILLIN-POT CLAVULANATE] Drug Allergy 5 Vomiting [facility] (17 sources) Clavulanate; Translations: [POTASSIUM CLAVULANATE] Drug Allergy 8 Swelling [facility] (17 sources) Seasonal allergy; Translations: [SEASONAL ALLERGIES] Allergy to substance 1 Other: See Comments [facility] Medications Current Medications Medication Drug Class(es) Dates Sig (Normalized) Sig (Original) azithromycin 250 mg oral tablet (2 sources) Macrolide Antimicrobial Start: 09-25-2022 End: 09-30-2022 take 2 tablets by mouth once daily, then take 1 tablet by mouth once daily azithromycin (ZITHROMAX) 250 mg tablet Indications: Mild intermittent asthma without complication Take 2 tablets by mouth once daily for 1 day, THEN 1 tablet once daily for 4 days. 6 tablet 0 09/25/2022 09/30/2022 Active Completed/Discontinued Medications Medication Drug Class(es) Dates Sig (Normalized) Sig (Original) albuterol 0.83 mg/ml inhalation solution (20 sources) beta2-Adrenergic Agonist Start: 09-25-2022 albuterol (PROVENTIL) 2.5 mg /3 mL (0.083 %) nebulizer solution Indications: Mild intermittent asthma without complication Use 3 mL via nebulizer every 4 hours as needed for wheezing/shortness of breath. Use over 5-15minutes. 270 mL 0 09/25/2022 Active Problems Active Problems Problem Classification Problem Date Documented Da te Episodic/Chronic Administrative/social admission (1 source) Dietary counseling and surveillance; Translations: [Weight loss counseling, encounter for] Onset: 03-14-2023 Episodic Asthma (19 sources) Asthma; Translations: [Unspecified asthma, uncomplicated] Onset: 12-11-2011 12-11-2011 Chronic Attention-deficit, conduct, and disruptive behavior disorders (1 source) Attention deficit hyperactivity disorder, combined type; Translations: [Attention-deficit hyperactivity disorder, combined type] Chronic Conditions associated with dizziness or vertigo (1 source) Dizziness; Translations: [Dizziness and giddiness] Episodic Disorders usually diagnosed in infancy, childhood, or adolescence (16 sources) Attention deficit hyperactivity disorder, predominantly inattentive type; Translations: [Other specified behavioral and emotional disorders with onset usually occurring in childhood and adolescence] Onset: 02-23-2011 02-23-2011 Chronic Influenza (1 source) Influenza due to Influenza A virus; Translations: [Influenza due to other identified influenza virus with other respiratory manifestations] Episodic Mood disorders (16 sources) Depressive disorder; Translations: [Depression] Onset: 10-01-2011 10-01-2011 Chronic Nonmalignant breast conditions (3 sources) Lump in lower inner quadrant of right breast; Translations: [Unspecified lump in the right breast, lower inner quadrant] Onset: 01-23-2023 Episodic Other bone disease and musculoskeletal deformities (1 source) Costal chondritis; Translations: [Chondrocostal junction syndrome [Tietze]] Episodic Other complications of (16 sources) Obesity; Translations: [Obesity complicating , unspecified trimester] Onset: 05-09-2017 05-09-2017 Chronic Other connective tissue disease (1 source) Spasm; Translations: [Other muscle spasm] Episodic Other liver diseases (4 sources) Steatosis of liver; Translations: [Fatty (change of) liver, not elsewhere classified] Onset: 02-15-2023 Chronic Other lower respiratory disease (1 source) Wheezing; Translations: [Wheezing] Episodic Other lower respiratory disease (2 sources) Pleuritic pain; Translations: [Pleurodynia] Episodic Other lower respiratory disease (1 source) Pleurodynia; Translations: [Pleuritic chest pain] Onset: 01-25-2023 Episodic Other nervous system disorders (16 sources) Static encephalopathy; Translations: [Other encephalopathy] Onset: 08-07-2010 08-07-2010 Chronic Other nervous system disorders (16 sources) Complex regional pain syndrome of lower limb; Translations: [Complex regional pain syndrome I of unspecified lower limb] Onset: 02-25-2012 02-25-2012 Chronic Other nervous system disorders (16 sources) Complex regional pain syndrome of upper limb; Translations: [Complex regional pain syndrome I of unspecified upper limb] Onset: 07-28-2015 07-28-2015 Chronic Other nutritional; endocrine; and metabolic disorders (1 source) Morbid obesity; Translations: [Morbid (severe) obesity due to excess calories] Chronic Other nutritional; endocrine; and metabolic disorders (2 sources) Morbid (severe) obesity due to excess calories; Translations: [Class 3 severe obesity without serious comorbidity with body mass index (BMI) of 45.0 to 49.9 in adult, unspecified obesity type (HCC)] Onset: 03-14-2023 Chronic Other nutritional; endocrine; and metabolic disorders (1 source) Body mass index (BMI) 45.0-49.9, adult; Translations: [Class 3 severe obesity without serious comorbidity with body mass index (BMI) of 45.0 to 49.9 in adult, unspecified obesity type (HCC)] Onset: 04-11-2023 Chronic Other upper respiratory infections (3 sources) Pharyngitis; Translations: [Acute pharyngitis, unspecified] Episodic Pneumonia (except that caused by tuberculosis or sexually transmitted disease) (3 sources) Viral pneumonia; Translations: [Viral pneumonia, unspecified] Onset: 02-12-2023 Episodic Retinal detachments; defects; vascular occlusion; and retinopathy (3 sources) Retinal dystrophy; 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 Viral infection (1 source) Viral disease; Translations: [Viral infection, unspecified] Episodic Past or Other Problems Problem Classification Problem Date Documented Date Episodic/Chronic Immunizations and screening for infectious disease (17 sources) Anti-nuclear factor positive; Translations: [Other specified abnormal immunological findings in serum] Onset: 12-25-2012 12-25-2012 Episodic Other complications of (16 sources) Support system deficit; Translations: [Supervision of high risk due to social problems, unspecified trimester] Onset: 05-09-2017 05-09-2017 Episodic Other complications of (16 sources) RhD negative; Translations: [Other specified related conditions, unspecified trimester] Onset: 05-29-2017 05-29-2017 Episodic Other connective tissue disease (16 sources) Fibromyalgia; Translations: [Fibromyalgia] Onset: 12-25-2012 12-25-2012 Episodic Other lower respiratory disease (16 sources) H/O: asthma; Translations: [Personal history of other diseases of the respiratory system] Onset: 05-09-2017 05-09-2017 Episodic Other screening for suspected conditions (not mental disorders or infectious disease) (2 sources) Cancer cervix screening status; Translations: [Encounter for screening for malignant neoplasm of cervix] Onset: 12-20-2022 Episodic Other skin disorders (16 sources) Acne; Translations: [Other acne] Onset: 02-07-2011 02-07-2011 Episodic Residual codes; unclassified (16 sources) Family history of cardiovascular disease in first degree male relative less than 55 years of age; Translations: [Family history of ischemic heart disease and other diseases of the circulatory system] Onset: 10-01-2011 10-01-2011 Episodic Residual codes; unclassified (16 sources) Family history of blood coagulation disorder; Translations: [Family history of diseases of the blood and blood-forming organs and certain disorders involving the immune mechanism] Onset: 07-28-2015 07-28-2015 Episodic Screening and history of mental health and substance abuse codes (16 sources) H/O: depression; Translations: [Personal history of other mental and behavioral disorders] Onset: 05-09-2017 05-09-2017 Episodic Results Test Name Value Interpretation Reference Range Facil ity Vital Signs Date Time Vital Sign Value Performing Clinician Zuri moise 02-21-2023 16:55-0400 Body temperature 98.49 [degF] Lambert Vogt VICE PRESIDENT OF CONSULTING SERVICES.CIGAR HEAD PERFORATOR Work Phone: [facility] 02-21-2023 16:55-0400 Body weight 122.47 kg Lambert Vogt VICE PRESIDENT OF CONSULTING SERVICES.CIGAR HEAD PERFORATOR Work Phone: [facility] 02-21-2023 16:55-0400 Diastolic blood pressure 78 mm[Hg] Lambert Vogt VICE PRESIDENT OF CONSULTING SERVICES.CIGAR HEAD PERFORATOR Work Phone: [facility] 02-21-2023 16:55-0400 Heart rate 121 /min Lambert Vogt VICE PRESIDENT OF CONSULTING SERVICES.CIGAR HEAD PERFORATOR Work Phone: [facility] 02-21-2023 16:55-0400 Respiratory rate 18 /min Lambert Vogt VICE PRESIDENT OF CONSULTING SERVICES.CIGAR HEAD PERFORATOR Work Phone: [facility] 02-21-2023 16:55-0400 SaO2% (BldA) [Mass fraction] 99 % Lambert Vogt VICE PRESIDENT OF CONSULTING SERVICES.CIGAR HEAD PERFORATOR Work Phone: [facility] 02-21-2023 16:55-0400 Systolic blood pressure 126 mm[Hg] Lambert Vogt VICE PRESIDENT OF CONSULTING SERVICES.CIGAR HEAD PERFORATOR Work Phone: [facility] 02-15-2023 09:52-0400 Body height 162.6 cm Lyndsay Mccloud MD Work Phone: [facility] 02-15-2023 09:52-0400 Body temperature 97.59 [degF] Lyndsay Mccloud MD Work Phone: [facility] 02-15-2023 09:52-0400 Body weight 122.47 kg Lyndsay Mccloud MD Work Phone: [facility] 02-15-2023 09:52-0400 Diastolic blood pressure 70 mm[Hg] Lyndsay Mccloud MD Work Phone: [facility] 02-15-2023 09:52-0400 Heart rate 86 /min Lyndsay Mccloud MD Work Phone: [facility] 02-15-2023 09:52-0400 Respiratory rate 14 /min Lyndsay Mccloud MD Work Phone: [facility] 02-15-2023 09:52-0400 SaO2% (BldA) [Mass fraction] 97 % Lyndsay Mccloud MD Work Phone: [facility] 02-15-2023 09:52-0400 Systolic blood pressure 134 mm[Hg] Lyndsay Mccloud MD Work Phone: [facility] 01-25-2023 15:39-0400 Body height 164.5 cm Lyndsay Mccloud MD Work Phone: [facility] 01-25-2023 15:39-0400 Body temperature 98.2 [degF] Lyndsay Mccloud MD Work Phone: [facility] 01-25-2023 15:39-0400 Body weight 123.38 kg Lyndsay Mccloud MD Work Phone: [facility] 01-25-2023 15:39-0400 Diastolic blood pressure 70 mm[Hg] Lyndsay Mccloud MD Work Phone: [facility] 01-25-2023 15:39-0400 Heart rate 95 /min Lyndsay Mccloud MD Work Phone: [facility] 01-25-2023 15:39-0400 Respiratory rate 14 /min Lyndsay Mccloud MD Work Phone: [facility] 01-25-2023 15:39-0400 SaO2% (BldA) [Mass fraction] 98 % Lyndsay Mccloud MD Work Phone: [facility] 01-25-2023 15:39-0400 Systolic blood pressure 114 mm[Hg] Lyndsay Mccloud MD Work Phone: [facility] 01-08-2023 15:30-0400 Body temperature 97.9 [degF] Tom Joy APRN.CIGAR HEAD PERFORATOR Work Phone: [facility] 01-08-2023 15:30-0400 Body weight 123.38 kg Tom Joy APRN.CIGAR HEAD PERFORATOR Work Phone: [facility] 01-08-2023 15:30-0400 Diastolic blood pressure 68 mm[Hg] Tom Pendlebury VICE PRESIDENT OF CONSULTING SERVICES.CIGAR HEAD PERFORATOR Work Phone: [facility] 01-08-2023 15:30-0400 Heart rate 112 /min Tom Marionmellymercedes VICE PRESIDENT OF CONSULTING SERVICES.CIGAR HEAD PERFORATOR Work Phone: [facility] 01-08-2023 15:30-0400 Respiratory rate 16 /min Tomjenna Razomercedes VICE PRESIDENT OF CONSULTING SERVICES.CIGAR HEAD PERFORATOR Work Phone: [facility] 01-08-2023 15:30-0400 SaO2% (BldA) [Mass fraction] 99 % Tom Marionmellymercedes VICE PRESIDENT OF CONSULTING SERVICES.CIGAR HEAD PERFORATOR Work Phone: [facility] 01-08-2023 15:30-0400 Systolic blood pressure 108 mm[Hg] Tom Pendlebury VICE PRESIDENT OF CONSULTING SERVICES.CIGAR HEAD PERFORATOR Work Phone: [facility] 12-20-2022 11:18-0500 Body height 163.8 cm Migdalia Emani VICE PRESIDENT OF CONSULTING SERVICES.CIGAR HEAD PERFORATOR Work Phone: [facility] 12-20-2022 11:18-0500 Body weight 119.75 kg Migdalia Statham VICE PRESIDENT OF CONSULTING SERVICES.CIGAR HEAD PERFORATOR Work Phone: [facility] 12-20-2022 11:18-0500 Diastolic blood pressure 76 mm[Hg] Migdalia Statham VICE PRESIDENT OF CONSULTING SERVICES.CIGAR HEAD PERFORATOR Work Phone: [facility] 12-20-2022 11:18-0500 Systolic blood pressure 118 mm[Hg] Migdalia Statham VICE PRESIDENT OF CONSULTING SERVICES.CIGAR HEAD PERFORATOR Work Phone: [facility] 09-25-2022 10:18-0500 Body temperature 97.81 [degF] Conchita Char VICE PRESIDENT OF CONSULTING SERVICES.CIGAR HEAD PERFORATOR Work Phone: [facility] 09-25-2022 10:18-0500 Body weight 116.57 kg Conchita Char VICE PRESIDENT OF CONSULTING SERVICES.CIGAR HEAD PERFORATOR Work Phone: [facility] 09-25-2022 10:18-0500 Diastolic blood pressure 78 mm[Hg] Conchita Char VICE PRESIDENT OF CONSULTING SERVICES.CIGAR HEAD PERFORATOR Work Phone: [facility] 09-25-2022 10:18-0500 Heart rate 76 /min Conchita Char VICE PRESIDENT OF CONSULTING SERVICES.CIGAR HEAD PERFORATOR Work Phone: [facility] 09-25-2022 10:18-0500 Respiratory rate 20 /min Conchita Char VICE PRESIDENT OF CONSULTING SERVICES.CIGAR HEAD PERFORATOR Work Phone: [facility] 09-25-2022 10:18-0500 SaO2% (BldA) [Mass fraction] 99 % Conchita Char VICE PRESIDENT OF CONSULTING SERVICES.CIGAR HEAD PERFORATOR Work Phone: [facility] 09-25-2022 10:18-0500 Systolic blood pressure 114 mm[Hg] Conchita Char VICE PRESIDENT OF CONSULTING SERVICES.CIGAR HEAD PERFORATOR Work Phone: [facility] 09-24-2022 16:47-0500 Body temperature 98.01 [degF] Marilynn Piyush VICE PRESIDENT OF CONSULTING SERVICES.CIGAR HEAD PERFORATOR Work Phone: [facility] 09-24-2022 16:47-0500 Body weight 116.94 kg Marilynn Piyush VICE PRESIDENT OF CONSULTING SERVICES.CIGAR HEAD PERFORATOR Work Phone: [facility] 09-24-2022 16:47-0500 Diastolic blood pressure 84 mm[Hg] Marilynn Piyush VICE PRESIDENT OF CONSULTING SERVICES.CIGAR HEAD PERFORATOR Work Phone: [facility] 09-24-2022 16:47-0500 Heart rate 88 /min Marilynn Piyush VICE PRESIDENT OF CONSULTING SERVICES.CIGAR HEAD PERFORATOR Work Phone: [facility] 09-24-2022 16:47-0500 Respiratory rate 17 /min Marilynn Piyush VICE PRESIDENT OF CONSULTING SERVICES.CIGAR HEAD PERFORATOR Work Phone: [facility] 09-24-2022 16:47-0500 SaO2% (BldA) [Mass fraction] 100 % Marilynn Piyush VICE PRESIDENT OF CONSULTING SERVICES.CIGAR HEAD PERFORATOR Work Phone: [facility] 09-24-2022 16:47-0500 Systolic blood pressure 124 mm[Hg] Marilynn Piyush VICE PRESIDENT OF CONSULTING SERVICES.CIGAR HEAD PERFORATOR Work Phone: [facility] 02-04-2022 14:58-0400 Diastolic blood pressure 82 mm[Hg] Cherelle Henderson VICE PRESIDENT OF CONSULTING SERVICES.CIGAR HEAD PERFORATOR Work Phone: [facility] 02-04-2022 14:58-0400 Systolic blood pressure 120 mm[Hg] Cherelle Henderson VICE PRESIDENT OF CONSULTING SERVICES.CIGAR HEAD PERFORATOR Work Phone: [facility] 02-04-2022 14:43-0400 Body temperature 97.59 [degF] Cherelle Henderson VICE PRESIDENT OF CONSULTING SERVICES.CIGAR HEAD PERFORATOR Work Phone: [facility] 02-04-2022 14:43-0400 Body weight 122.02 kg Cherelle Henderson VICE PRESIDENT OF CONSULTING SERVICES.CIGAR HEAD PERFORATOR Work Phone: [facility] 02-04-2022 14:43-0400 Heart rate 100 /min Cherelle Henderson VICE PRESIDENT OF CONSULTING SERVICES.CIGAR HEAD PERFORATOR Work Phone: [facility] 02-04-2022 14:43-0400 Respiratory rate 21 /min Cherelle Henderson VICE PRESIDENT OF CONSULTING SERVICES.CIGAR HEAD PERFORATOR Work Phone: [facility] 02-04-2022 14:43-0400 SaO2% (BldA) [Mass fraction] 98 % Cherelle Henderson VICE PRESIDENT OF CONSULTING SERVICES.CIGAR HEAD PERFORATOR Work Phone: [facility] Encounters Encounter Date Encounter Type Care Provider Facility Start: 04-11-2023 End: 04-12-2023 [facility] Facility:[facility] Start: 03-14-2023 End: 03-15-2023 ambulatory [facility] Facility:[facility] Start: 02-21-2023 End: 02-21-2023 [facility] Facility:[facility] Start: 02-21-2023 End: 02-21-2023 Patient encounter procedure Lambert Vogt VICE PRESIDENT OF CONSULTING SERVICES.CIGAR HEAD PERFORATOR Work Phone: [facility] Procedures Date Procedure Procedure Detail Performing Clinician Start: 02-12-2023 Radiologic exam chest 2 views Lyndsay thapa MD Work Phone: Start: 01-23-2023 Us breast uni real time with image limited Migdalia Joaquin VICE PRESIDENT OF CONSULTING SERVICES.CIGAR HEAD PERFORATOR Work Phone: Start: 03-21-2022 FULL FIELD ELECTRORETINOGRAPHY (ERG) OU (BOTH EYES) Sung Gonzalez MD Work Phone: Start: 03-21-2022 MULTIFOCAL ELECTRORETINOGRAPHY (ERG) OU(BOTH EYES) Sung Gonzalez MD Work Phone: Start: 03-21-2022 End: 03-21-2022 Computerized ophthalmic imaging retina Trent Wakefield MD Work Phone: Start: 02-04-2022 STREP A MOLECULAR (POC) Cherelle Henderson APRN.CIGAR HEAD PERFORATOR Work Phone: Plan of Treatment Date Care Activity Detail Author Start: 09-16-2027 Urine microalbumin profile [facility] Start: 12-20-2025 PAP TESTING PAP TESTING [facility] Start: 04-11-2024 Annual PCP Team Gravity Meter Observer sunitha Disease Visit Annual PCP Team Chronic Disease Visit [facility] Start: 02-16-2024 ANNUAL PCP TEAM COAL HAULER OPERATOR SUNITHA DISEASE VISIT ANNUAL PCP TEAM CHRONIC DISEASE VISIT [facility] Start: 01-26-2024 ANNUAL PCP TEAM COAL HAULER OPERATOR SUNITHA DISEASE VISIT ANNUAL PCP TEAM CHRONIC DISEASE VISIT [facility] Start: 09-25-2023 ANNUAL PCP TEAM COAL HAULER OPERATOR SUNITHA DISEASE VISIT ANNUAL PCP TEAM CHRONIC DISEASE VISIT [facility] Start: 06-28-2023 Influenza vaccination C [facility] Start: 04-26-2023 Influenza vaccination INFLUENZA (#1) [facility] Immunizations Immunization Date Immunization Notes Care Provider Fa may 02-15-2023 pneumococcal (PCV20) vaccine, 20 valent (PREVNAR 20) Lyndsay Mccloud MD Work Phone: [facility] Work Phone: 11-23-2019 influenza, injectabl e, quadrivalent, contains preservative Cherelle Henderson APRN.CIGAR HEAD PERFORATOR Work Phone: [facility] 11-23-2019 influenza virus vaccine, unspecified formulation Us 2 Work Phone: [facility] 09-20-2017 RHO(D) immune globulin- IV or IM Cherelle Henderson APRN.CIGAR HEAD PERFORATOR Work Phone: [facility] Work Phone: 09-16-2017 tetanus toxoid, reduced diphtheria toxoid, and acellular pertussis vaccine, adsorbed Cherelle Henderson APRN.[facility] Work Phone: [facility] 07-05-2017 influenza, injectabl e, quadrivalent, contains preservative Cherelle Henderson VICE PRESIDENT OF CONSULTING SERVICES.CIGAR HEAD PERFORATOR Work Phone: [facility] 09-21-2016 influenza, injectabl e, quadrivalent, preservative free Cherelle Henderson VICE PRESIDENT OF CONSULTING SERVICES.CIGAR HEAD PERFORATOR Work Phone: [facility] 09-01-2015 influenza, injectabl e, quadrivalent, contains preservative Cherelle Henderson VICE PRESIDENT OF CONSULTING SERVICES.[facility] Work Phone: [facility] Work Phone: 09-22-2014 influenza, injectabl e, quadrivalent, preservative free Cherelle Henderson VICE PRESIDENT OF CONSULTING SERVICES.[facility] Work Phone: [facility] 07-31-2013 influenza virus vaccine, unspecified formulation Cherelle Henderson VICE PRESIDENT OF CONSULTING SERVICES.[facility] Work Phone: [facility] 08-27-2012 influenza virus vaccine, unspecified formulation Cherelle Henderson VICE PRESIDENT OF CONSULTING SERVICES.[facility] Work Phone: [facility] 08-27-2012 Meningococcal, MCV4, unspecified conjugate formulation(groups A, C, Y and W-135) Cherelle Henderson VICE PRESIDENT OF CONSULTING SERVICES.[facility] Work Phone: [facility] 11-16-2011 influenza virus vaccine, unspecified formulation Cherelle Henderson VICE PRESIDENT OF CONSULTING SERVICES.[facility] Work Phone: [facility] 09-14-2010 influenza virus vaccine, unspecified formulation Cherelle Henderson VICE PRESIDENT OF CONSULTING SERVICES.CIGAR HEAD PERFORATOR Work Phone: [facility] 02-21-2010 human papilloma viru s vaccine, quadrivalent Cherelle Henderson VICE PRESIDENT OF CONSULTING SERVICES.[facility] Work Phone: [facility] Work Phone: 08-19-2009 influenza virus vaccine, unspecified formulation Cherelle Henderson VICE PRESIDENT OF CONSULTING SERVICES.CIGAR HEAD PERFORATOR Work Phone: [facility] Work Phone: 09-03-2008 influenza virus vaccine, unspecified formulation Cherelle Henderson VICE PRESIDENT OF CONSULTING SERVICES.CIGAR HEAD PERFORATOR Work Phone: [facility] Work Phone: 03-23-2008 human papilloma viru s vaccine, quadrivalent Cherelle Henderson VICE PRESIDENT OF CONSULTING SERVICES.[facility] Work Phone: [facility] Work Phone: 01-20-2008 hepatitis A vaccine, unspecified formulation Cherelle Henderson VICE PRESIDENT OF CONSULTING SERVICES.[facility] Work Phone: [facility] Work Phone: 01-20-2008 human papilloma viru s vaccine, quadrivalent Cherelle Henderson VICE PRESIDENT OF CONSULTING SERVICES.[facility] Work Phone: [facility] Work Phone: 05-06-2007 hepatitis A vaccine, unspecified formulation Cherelle Henderson VICE PRESIDENT OF CONSULTING SERVICES.[facility] Work Phone: [facility] Work Phone: 05-06-2007 Meningococcal, MCV4, unspecified conjugate formulation(groups A, C, Y and W-135) Cherelle Henderson VICE PRESIDENT OF CONSULTING SERVICES.[facility] Work Phone: [facility] Work Phone: 05-06-2007 tetanus toxoid, reduced diphtheria toxoid, and acellular pertussis vaccine, adsorbed Cherelle Henderson VICE PRESIDENT OF CONSULTING SERVICES.[facility] Work Phone: [facility] Work Phone: 08-16-2006 influenza virus vaccine, unspecified formulation Cherelle Henderson VICE PRESIDENT OF CONSULTING SERVICES.[facility] Work Phone: [facility] Work Phone: 09-04-2005 influenza virus vaccine, unspecified formulation Cherelle Henderson VICE PRESIDENT OF CONSULTING SERVICES.[facility] Work Phone: [facility] Work Phone: 08-28-2005 influenza virus vaccine, unspecified formulation Cherelle Henderson VICE PRESIDENT OF CONSULTING SERVICES.[facility] Work Phone: [facility] Work Phone: 09-19-2004 influenza virus vaccine, unspecified formulation Cherelle Henderson VICE PRESIDENT OF CONSULTING SERVICES.CIGAR HEAD PERFORATOR Work Phone: [facility] Work Phone: 01-17-2001 diphtheria, tetanus toxoids and acellular pertussis vaccine Cherelle Henderson VICE PRESIDENT OF CONSULTING SERVICES.[facility] Work Phone: [facility] Work Phone: 01-17-2001 measles, mumps and rubella virus vaccine Cherelle Henderson VICE PRESIDENT OF CONSULTING SERVICES.[facility] Work Phone: [facility] Work Phone: 01-17-2001 poliovirus vaccine, inactivated Cherelleadenike Henderson VICE PRESIDENT OF CONSULTING SERVICES.[facility] Work Phone: [facility] Work Phone: 10-28-1997 Chicken Pox (disease) Jaime a Santiago VICE PRESIDENT OF CONSULTING SERVICES.[facility] Work Phone: [facility] Work Phone: 08-15-1997 diphtheria, tetanus toxoids and acellular pertussis vaccine Cherelleadenike Henderson VICE PRESIDENT OF CONSULTING SERVICES.[facility] Work Phone: [facility] Work Phone: 08-15-1997 haemophilus influenz ae type b vaccine, HbOC conjugate Cherelle Henderson VICE PRESIDENT OF CONSULTING SERVICES.[facility] Work Phone: [facility] Work Phone: 08-06-1997 influenza virus vaccine, unspecified formulation Cherelleadenike Henderson VICE PRESIDENT OF CONSULTING SERVICES.[facility] Work Phone: [facility] Work Phone: 02-24-1997 measles, mumps and rubella virus vaccine Cherelle Henderson VICE PRESIDENT OF CONSULTING SERVICES.[facility] Work Phone: [facility] Work Phone: 1996 diphtheria, tetanus toxoids and acellular pertussis vaccine Cherelle Henderson VICE PRESIDENT OF CONSULTING SERVICES.[facility] Work Phone: [facility] Work Phone: 1996 haemophilus influenz ae type b vaccine, HbOC conjugate Cherelle Henderson VICE PRESIDENT OF CONSULTING SERVICES.[facility] Work Phone: [facility] Work Phone: 1996 hepatitis B vaccine, pediatric or pediatric/adolescent dosage Cherelle Henderson VICE PRESIDENT OF CONSULTING SERVICES.[facility] Work Phone: [facility] Work Phone: 1996 trivalent poliovirus vaccine, live, oral Cherelle Henderson VICE PRESIDENT OF CONSULTING SERVICES.[facility] Work Phone: [facility] Work Phone: 1996 diphtheria, tetanus toxoids and acellular pertussis vaccine Cherelle Henderson VICE PRESIDENT OF CONSULTING SERVICES.[facility] Work Phone: [facility] Work Phone: 1996 haemophilus influenz ae type b vaccine, HbOC conjugate Cherelle Henderson VICE PRESIDENT OF CONSULTING SERVICES.[facility] Work Phone: [facility] Work Phone: 1996 trivalent poliovirus vaccine, live, oral Cherelle Henderson VICE PRESIDENT OF CONSULTING SERVICES.[facility] Work Phone: [facility] Work Phone: 1996 diphtheria, tetanus toxoids and acellular pertussis vaccine Cherelle Henderson VICE PRESIDENT OF CONSULTING SERVICES.[facility] Work Phone: [facility] Work Phone: 1996 haemophilus influenz ae type b vaccine, HbOC conjugate Cherelle Henderson VICE PRESIDENT OF CONSULTING SERVICES.[facility] Work Phone: [facility] Work Phone: 1996 hepatitis B vaccine, pediatric or pediatric/adolescent dosage Cherelle Henderson VICE PRESIDENT OF CONSULTING SERVICES.[facility] Work Phone: [facility] Work Phone: 1996 trivalent poliovirus vaccine, live, oral Cherelle Henderson VICE PRESIDENT OF CONSULTING SERVICES.[facility] Work Phone: [facility] Work Phone: 1996 hepatitis B vaccine, pediatric or pediatric/adolescent dosage Cherelle Henderson VICE PRESIDENT OF CONSULTING SERVICES.[facility] Work Phone: [facility] Work Phone: NEGATED: Highlighted row has not occurred!02-15-2023 pneumococcal (PCV20) vaccine, 20 valent (PREVNAR 20) Lyndsay Mccloud MD Work Phone: [facility] Work Phone: Payers Date Payer Category Payer Medicaid [id number] 2021 Medicaid [employer] [id number] 2021-Present [phone] [address] [place] [address] Medicaid [id number] 2021 Medicaid [id number] 2021 Medicaid [id number] Social History Date Type Detail Facility Start: 2013 End: 09-24-2022 Tobacco smoking status LAIS Never smoked tobacco [facility] Start: 2013 End: 09-24-2022 Tobacco use and exposure Smokeless tobacco non-user [facility] Start: 02-04-2022 End: 01-08-2023 Alcohol intake Current drinker of alcohol (finding) [facility] Start: 11-23-2019 History SDOH Alcohol Comment social once a month or less [facility] Start: 08-31-2015 End: 09-24-2022 Tobacco Comment mom and Stepfather smoke outside the home [facility] Start: 1996 Sex Assigned At Not on file C [facility] Start: 01-25-2022 End: 03-21-2022 Exposure to SARS-CoV-2 (event) Not sure [facility] History of tobacco use Passive smoker [facility] Start: 11-23-2022 End: 01-08-2023 History of Social function [facility] Start: 11-23-2022 End: 01-08-2023 Tobacco use panel [facility] Adult Depression Screening Assessment 0 [facility] Clinical Notes 05-09-2017 to 04-11-2023 Lambert Vogt APRN.CIGAR HEAD PERFORATOR - 02/21/2023 5:13 PM EDTTelephone Encounter - Lyndsay Mccloud MD - 02/21/2023 3:59 PM EDTTelephone Encounter - Gwen Juarez LPN - 02/21/2023 1:57 PM EDTPatient Instructions Note Date & Type Note Facility 04-11-2023 Note HNO ID: [id number] Author: Ava Parker APRN.CIGAR HEAD PERFORATOR Service: ? Author Type: Nurse Practitioner Type: Progress Notes Filed: 04/11/2023 2:41 PM Note Text: CC: Patient presents with: Recheck: Adipex follow up HPI Tamara Pandya is a 28 year old female who presents today for above. Currently taking phentermine. Starting Month 3 Weight/BMI Last 1 Encounter Wt Readings: Date: Wt: 04/11/2023 122 kg (269 lb) BMI 46.17 kg/(m2) Last visit Wt: 124.7 kg (275 lb) BMI: 47.20 kg/(m2) DIET Daily serving of fruits:1-2 Daily serving of vegetables:3-5 Daily serving of protein:3-5 Fluid intake:Water: average of 5-10 cups per day Do you Skip meals:NO Which meals do you tend to skip? Dinner Eating away from home:YES Fast-food/fast-casual and Sit down restaurantOnce weekly or less often Exercise routine: playing with child and going swimming. Medication side effects: Increased heart rate: No Insomnia: No increase from chronic intermittent issues with insomnia Constipation: No increase from typical mild constipaiton Nervousness: No Impairment of concentration/attention, difficulty with memory, speech or language problems (particularly word-finding difficulties): No No further episodes of dizziness or vertigo ROS as above, otherwise non-contributory. Reviewed PMHx, PSHx, social Hx, medications and allergies. PHYSICAL EXAM BP 122/70 Pulse 92 Resp 16 Wt 122 kg (269 lb) LMP 03/16/2017 (Exact Date) BMI 46.17 kg/m? General Appearance: well appearing, in no acute distress, alert Pysch: mood and affect broad and appropriate Eyes: conjunctiva pink and moist, no icterus, sclera white, non-injected Lungs: Lungs clear to auscultation. No wheezing, rhonchi, rales. Heart: RRR without murmur, gallop, or rubs. No ectopy ASSESSMENT/PLAN: 1. Class 3 severe obesity without serious comorbidity with body mass index (BMI) of 45.0 to 49.9 in adult, unspecified obesity type (HCC) - ICD9: 278.01, V85.42, ICD10: E66.01, Z68.42 (primary diagnosis) Weight decreasing - will continue phentermine at this time - Behavioral intervention and - Pharmacological intervention - PHENTERMINE 15 MG CAPSULE Discussed Contraindications, went over each one and over side effects. tolerance, continuity of medication, controlled medication so cannot be replaced if stolen or if lost. Advised exercising along with this will really help the patient reach her goal of loosing weight. Short term use of this med was discussed. Negative for all the following :Hypersensitivity or idiosyncrasy to phentermine or other sympathomimetic amines or any component of the formulation; history of cardiovascular disease (arrhythmias, congestive heart failure, coronary artery disease, stroke, uncontrolled hypertension); hyperthyroidism, glaucoma, agitated states, history of drug abuse; use during or within 14 days following MAO inhibitor therapy; , breast-feeding. PDMP website checked and validated. All prescriptions have been APPROPRIATELY filled. No suspicious activity was identified. 04/11/2023 by Ava Parker APRN.DHARA 2. Weight loss counseling, encounter for - ICD9: V65.3, ICD10: Z71.3 As above Prescription instructions reviewed with patient as applicable. Potential red flag symptoms discussed with the patient. Reviewed appropriate action plan to take if red flag symptoms occur. Patient agreeable to treatment plan. Ava Parker APRN.CNP [facility] 03-14-2023 Note HNO ID: [id number] Author: Ava Parker APRN.CNP Service: ? Author Type: Nurse Practitioner Type: Progress Notes Filed: 03/14/2023 1:31 PM Note Text: CC: Patient presents with: Recheck: Adipex follow up HPI Tamara Pandya is a 28 year old female who presents today for above. Currently taking phentermine. Starting Month 2 Weight/BMI Last 1 Encounter Wt Readings: Date: Wt: 03/14/2023 124.7 kg (275 lb) BMI 47.20 kg/(m2) Last visit Wt: 122.5 kg (270 lb) BMI: 46.35 kg/(m2) DIET Daily serving of fruits:1-2 Daily serving of vegetables:1-2 Daily serving of protein:3-5 Fluid intake:Water: 8 glasses per day Do you Skip meals:YES Which meals do you tend to skip? Breakfast Food Behaviors: denies any abnormal food behaviors Eating away from home:YES Fast-food/fast-casualOnce weekly or less often Exercise routine: Has a 5 year old she stays active with. Medication side effects: Increased heart rate: No Insomnia: No Constipation: No Nervousness: No Impairment of concentration/attention, difficulty with memory, speech or language problems (particularly word-finding difficulties): No Had an episode of dizziness a few weeks ago related to vertigo. Has continued phentermine without any further dizziness. ROS as above, otherwise non-contributory. Reviewed PMHx, PSHx, social Hx, medications and allergies. PHYSICAL EXAM BP 124/76 Pulse 92 Resp 16 Wt 124.7 kg (275 lb) LMP 03/16/2017 (Exact Date) BMI 47.20 kg/m? General Appearance: well appearing, in no acute distress, alert Pysch: mood and affect broad and appropriate Skin: Skin color, texture, turgor normal for age; Lungs: Lungs clear to auscultation. No wheezing, rhonchi, rales. Heart: RRR without murmur, gallop, or rubs. No ectopy ASSESSMENT/PLAN: 1. Morbid obesity (HCC) - ICD9: 278.01, ICD10: E66.01 (primary diagnosis) Weight increasing patient would like to try 1 more month of phentermine and add more exercise and healthy low fat diet. - for any further dizziness, increased heart rate, or any new symptoms, stop the phentermine and call office. If no weight loss over the next 4 weeks, will need to stop phentermine. - Behavioral intervention and - Pharmacological intervention - PHENTERMINE 15 MG CAPSULE 2. Weight loss counseling, encounter for - ICD9: V65.3, ICD10: Z71.3 As above Prescription instructions reviewed with patient as applicable. Potential red flag symptoms discussed with the patient. Reviewed appropriate action plan to take if red flag symptoms occur. Patient agreeable to treatment plan. Ava Parker APRN.DHARA [facility] 02-21-2023 Note HNO ID: [id number] Author: Lambert Vogt APRN.DHARA Service: ? Author Type: Nurse Practitioner Type: Progress Notes Filed: 02/21/2023 5:34 PM Note Text: Subjective HPI HPI Tamara Pandya is a 28 year old female who presents today for CC of dizziness, weakness, falling. This started today. Has tried nothing for relief. Symptoms are worsened by nothing. Risk factors hx of virtigo decades ago. Denies head injury and . .Patient presents with: Dizziness: HIRSCH, L ear clogged x this AM PAST MEDICAL HISTORY Diagnosis Date Abdominal pain 10/06/2012 Acne ADD (attention deficit disorder) 02/23/2011 Anemia 10/01/2011 Asthma 12/11/2011 Chest pain 02/20/2013 Depression 10/01/2011 Dizziness 01/16/2012 Family history of heart disease in male family member before age 55 10/01/2011 Fatigue 08/04/2010 Fatty liver 02/15/2023 Headache(784.0) 12/24/2012 Myopia NEGATIVE HISTORY OF 02/20/2013 Normal Color Vison Pain in joint, ankle and foot 09/04/2011 Snoring 08/04/2010 Static encephalopathy 08/07/2010 Wears glasses PAST SURGICAL HISTORY Procedure Laterality Date DELIVERY ONLY 12/09/2017 ALLERGIES Potassium Clavulanate, Seasonal Allergies, and Augmentin [Amoxicillin-Pot Clavulanate] MEDICATIONS albuterol HFA (VENTOLIN HFA) 90 mcg/actuation inhaler Inhale 2 Puffs as instructed every 4 hours as needed for wheezing/shortness of breath. Inhale by mouth as instructed. cyclobenzaprine (FLEXERIL) 10 mg tablet Take 1 tablet by mouth at bedtime as needed for muscle spasm. methylPREDNISolone (MEDROL, BELLA,) 4 mg Dose-Pack Follow dosing instructions, take with food. Phentermine HCl 15 mg capsule Take 1 capsule by mouth once daily for 30 days. ipratropium-albuterol (DUONEB) 0.5 mg-3 mg(2.5 mg base)/3 mL nebu Inhale 3 mL as instructed every 4 hours as needed for wheezing/shortness of breath. albuterol (PROVENTIL) 2.5 mg /3 mL (0.083 %) nebulizer solution Use 3 mL via nebulizer every 4 hours as needed for wheezing/shortness of breath. Use over 5-15minutes. benzonatate (TESSALON PERLE) 100 mg capsule Take 2 capsules by mouth three times daily as needed. (Patient not taking: Reported on 01/08/2023) levonorgestrel (MIRENA) 20 mcg/24 hr (5 years) IUD Inserted in office FAMILY HISTORY Problem Relation Age of Onset Hypertension Maternal Grandmother GI Maternal Grandmother IBS Alzheimer's Disease Maternal Grandmother Hypertension Paternal Grandmother Cancer Paternal Grandmother Cancer Paternal Grandfather lung Heart Father 2000 from [place] secondary to high cholesterol problem/genetic other ([place]) Father GI Mother IBS, Basilio's, PUD, ulcerative collitis Arthritis Mother autoimmune arthritis other (Disc Disease) Mother other (Prolapse) Mother other (Esophageal stenosis) Mother other (Hiatal hernia) Mother Amblyopia Brother other (cerebral palsy) Brother other (bipolar) Other 2 paternal cousins GI Sister IBS other (Other) Sister Lupus, hypoglycemia other (HELPP Syndrome) Sister Heart Paternal Uncle Asthma Daughter Social History Tobacco Use Smoking status: Never Passive exposure: Yes Smokeless tobacco: Never Tobacco comments: mom and Stepfather smoke outside the home Vaping Use Vaping Use: Never used Substance Use Topics Alcohol use: Yes Comment: social once a month or less Drug use: No ROS Objective Blood pressure 126/78, pulse (!) 121, temperature 36.9 ?C (98.5 ?F), resp. rate 18, weight 122.5 kg (270 lb), last menstrual period 03/16/2017, SpO2 99 %. Physical Exam Constitutional: General: She is not in acute distress. Appearance: She is ill-appearing. She is not toxic-appearing or diaphoretic. HENT: Head: Normocephalic and atraumatic. Eyes: General: Lids are normal. Comments: PERRLA Cardiovascular: Rate and Rhythm: Normal rate and regular rhythm. Heart sounds: Normal heart sounds, S1 normal and S2 normal. Pulmonary: Effort: Pulmonary effort is normal. Breath sounds: Normal breath sounds. Neurological: Mental Status: She is alert and oriented to person, place, and time. Gait: Gait is intact. ASSESSMENT/PLAN: 1. Dizziness - ICD9: 780.4, ICD10: R42 Will refer to ER, concerns with weakness/falling Mother to drive pov to ER Lambert Vogt APRN.[facility] 02-21-2023 History of Present illness Narrative Subjective HPI HPI Tamara Pnadya is a 28 year old female who presents today for CC of dizziness, weakness, falling. This started today. Has tried nothing for relief. Symptoms are worsened by nothing. Risk factors hx of virtigo decades ago. Denies head injury and . .Patient presents with: Dizziness: HIRSCH, L ear clogged x this AM PAST MEDICAL HISTORY Diagnosis Date Abdominal pain 10/06/2012 Acne ADD (attention deficit disorder) 02/23/2011 Anemia 10/01/2011 Asthma 12/11/2011 Chest pain 02/20/2013 Depression 10/01/2011 Dizziness 01/16/2012 Family history of heart disease in male family member before age 55 10/01/2011 Fatigue 08/04/2010 Fatty liver 02/15/2023 Headache(784.0) 12/24/2012 Myopia NEGATIVE HISTORY OF 02/20/2013 Normal Color Vison Pain in joint, ankle and foot 09/04/2011 Snoring 08/04/2010 Static encephalopathy 08/07/2010 Wears glasses PAST SURGICAL HISTORY Procedure Laterality Date DELIVERY ONLY 12/09/2017 ALLERGIES Potassium Clavulanate, Seasonal Allergies, and Augmentin [Amoxicillin-Pot Clavulanate] MEDICATIONS albuterol HFA (VENTOLIN HFA) 90 mcg/actuation inhaler Inhale 2 Puffs as instructed every 4 hours as needed for wheezing/shortness of breath. Inhale by mouth as instructed. cyclobenzaprine (FLEXERIL) 10 mg tablet Take 1 tablet by mouth at bedtime as needed for muscle spasm. methylPREDNISolone (MEDROL, BELLA,) 4 mg Dose-Pack Follow dosing instructions, take with food. Phentermine HCl 15 mg capsule Take 1 capsule by mouth once daily for 30 days. ipratropium-albuterol (DUONEB) 0.5 mg-3 mg(2.5 mg base)/3 mL nebu Inhale 3 mL as instructed every 4 hours as needed for wheezing/shortness of breath. albuterol (PROVENTIL) 2.5 mg /3 mL (0.083 %) nebulizer solution Use 3 mL via nebulizer every 4 hours as needed for wheezing/shortness of breath. Use over 5-15minutes. benzonatate (TESSALON PERLE) 100 mg capsule Take 2 capsules by mouth three times daily as needed. (Patient not taking: Reported on 01/08/2023) levonorgestrel (MIRENA) 20 mcg/24 hr (5 years) IUD Inserted in office FAMILY HISTORY Problem Relation Age of Onset Hypertension Maternal Grandmother GI Maternal Grandmother IBS Alzheimer's Disease Maternal Grandmother Hypertension Paternal Grandmother Cancer Paternal Grandmother Cancer Paternal Grandfather lung Heart Father 2000 from [place] secondary to high cholesterol problem/genetic other ([place]) Father GI Mother IBS, Basilio's, PUD, ulcerative collitis Arthritis Mother autoimmune arthritis other (Disc Disease) Mother other (Prolapse) Mother other (Esophageal stenosis) Mother other (Hiatal hernia) Mother Amblyopia Brother other (cerebral palsy) Brother other (bipolar) Other 2 paternal cousins GI Sister IBS other (Other) Sister Lupus, hypoglycemia other (HELPP Syndrome) Sister Heart Paternal Uncle Asthma Daughter Social History Tobacco Use Smoking status: Never Passive exposure: Yes Smokeless tobacco: Never Tobacco comments: mom and Stepfather smoke outside the home Vaping Use Vaping Use: Never used Substance Use Topics Alcohol use: Yes Comment: social once a month or less Drug use: No ROS Objective Blood pressure 126/78, pulse (!) 121, temperature 36.9 C (98.5 F), resp. rate 18, weight 122.5 kg (270 lb), last menstrual period 03/16/2017, SpO2 99 %. Physical Exam Constitutional: General: She is not in acute distress. Appearance: She is ill-appearing. She is not toxic-appearing or diaphoretic. HENT: Head: Normocephalic and atraumatic. Eyes: General: Lids are normal. Comments: PERRLA Cardiovascular: Rate and Rhythm: Normal rate and regular rhythm. Heart sounds: Normal heart sounds, S1 normal and S2 normal. Pulmonary: Effort: Pulmonary effort is normal. Breath sounds: Normal breath sounds. Neurological: Mental Status: She is alert and oriented to person, place, and time. Gait: Gait is intact. ASSESSMENT/PLAN: 1. Dizziness - ICD9: 780.4, ICD10: R42 Will refer to ER, concerns with weakness/falling Mother to drive pov to ER Lambert Vogt APRN.CIGAR HEAD PERFORATOR documented in this encounter [facility] 02-21-2023 Miscellaneous Notes agree Patient calling said she has been having dizziness, has history of vertigo. Patient said she does have pressure in her ear today. she has not taken any muscle relaxer in past 24 hours. Aware PCP is out of office this afternoon, advised to go to express care for evaluation. documented in this encounter [facility] 02-15-2023 Note HNO ID: [id number] Author: Lyndsay Mccloud MD Service: ? Author Type: Physician Type: Progress Notes Filed: 02/15/2023 6:04 PM Note Text: Reason for Visit Patient presents with: Follow Up: xray Tamara Pandya is a 28 year old female who presents here today for Above Complaints.. Health Maintenance COVID-19 VACCINE(1) PNEUMOCOCCAL(1 - PCV) HEPATITIS C SCREENING HPI Follow up for pleurisy; repeat chest xr 3 days age was normal. She still have some pain in the lower ribs /costal margin on the right side, this pain comes on mostly when she is exerting herself like lifting and moving a lot. Resting it does not hurt. Ok for trial of medrol dose pack Patient is coping with ADD on her own. Has bad days and good days. She has not needed her rescue inhaler sin. I think this will also help her focus. Ce her pneumonia, will get the pneumonia shot today Is concerned about her obesity, is wanting to consider phentermine for weight loss. As GLP-1's did not seem to be covered under her insurance No problem-specific Assessment AND Plan notes found for this encounter. PAST MEDICAL HISTORY Diagnosis Date Abdominal pain 10/06/2012 Acne ADD (attention deficit disorder) 02/23/2011 Anemia 10/01/2011 Asthma 12/11/2011 Chest pain 02/20/2013 Depression 10/01/2011 Dizziness 01/16/2012 Family history of heart disease in male family member before age 55 10/01/2011 Fatigue 08/04/2010 Headache(784.0) 12/24/2012 Myopia NEGATIVE HISTORY OF 02/20/2013 Normal Color Vison Pain in joint, ankle and foot 09/04/2011 Snoring 08/04/2010 Static encephalopathy 08/07/2010 Wears glasses PAST SURGICAL HISTORY Procedure Laterality Date DELIVERY ONLY 12/09/2017 FAMILY HISTORY Problem Relation Age of Onset Hypertension Maternal Grandmother GI Maternal Grandmother IBS Alzheimer's Disease Maternal Grandmother Hypertension Paternal Grandmother Cancer Paternal Grandmother Cancer Paternal Grandfather lung Heart Father 2000 from [place] secondary to high cholesterol problem/genetic other ([place]) Father GI Mother IBS, Basilio's, PUD, ulcerative collitis Arthritis Mother autoimmune arthritis other (Disc Disease) Mother other (Prolapse) Mother other (Esophageal stenosis) Mother other (Hiatal hernia) Mother Amblyopia Brother other (cerebral palsy) Brother other (bipolar) Other 2 paternal cousins GI Sister IBS other (Other) Sister Lupus, hypoglycemia other (HELPP Syndrome) Sister Heart Paternal Uncle Asthma Daughter Social History Tobacco Use Smoking status: Never Passive exposure: Yes Smokeless tobacco: Never Tobacco comments: mom and Stepfather smoke outside the home Vaping Use Vaping Use: Never used Substance Use Topics Alcohol use: Yes Comment: social once a month or less Drug use: No Past medical history, appointments, medications, allergies reviewed. Pertinent Lab/Diagnostic Studies are reviewed and discussed today Current Outpatient Medications: ipratropium-albuterol (DUONEB) 0.5 mg-3 mg(2.5 mg base)/3 mL nebu albuterol (PROVENTIL) 2.5 mg /3 mL (0.083 %) nebulizer solution predniSONE (DELTASONE) 10 mg tablet albuterol HFA (VENTOLIN HFA) 90 mcg/actuation inhaler benzonatate (TESSALON PERLE) 100 mg capsule levonorgestrel (MIRENA) 20 mcg/24 hr (5 years) IUD Review of Systems CONSTITUTIONAL: No fevers, chills night sweats, unintended weight loss CARDIOVASCULAR: No chest pain, dyspnea, palpitations, orthopnea, PND, ankle edema. PULM: No dyspnea, unexplained cough. GI: No dysphagia/odynophagia, problematic reflux, constipation, diarrhea, changes in stool habits, hematochezia, melena. : No new urinary complaints, including dysuria, gross hematuria or pyuria. NEURO: No new balance problems, peripheral weakness/paresthesias or numbness of concern. Physical Exam BP 134/70 (BP Site: Left Arm, BP Position: Sitting, BP Cuff Size: Large Adult) Pulse 86 Temp 36.4 ?C (97.6 ?F) Resp 14 Ht 162.6 cm (5' 4 ) Wt 122.5 kg (270 lb) LMP 03/16/2017 (Exact Date) SpO2 97% BMI 46.35 kg/m? General appearance: Well appearing, alert, in no acute distress, well nourished. Skin: Skin color, texture, turgor normal, no suspicious rashes or lesions Head: Normocephalic, no masses, lesions, tenderness or abnormalities Eyes: Anicteric sclera. Pupils are equally round and reactive to light. Extraocular movements are intact. Lungs: Lungs clear to auscultation. No wheezing, rhonchi, rales Heart: RRR without murmur, gallop, or rubs. Extremities: No deformities, edema, skin discoloration, clubbing or cyanosis. Good capillary refill. ASSESSMENT/PLAN: 1. Muscle spasm - ICD9: 728.85, ICD10: M62.838 (primary diagnosis) Gardiner of cyclobenzaprine. 2. Costochondritis, acute - ICD9: 733.6, ICD10: M94.0 - CYCLOBENZAPRINE 10 MG TABLET - METHYLPREDNISOLONE 4 MG TABLETS IN A DOSE PACK 3. Encounter for immunization - ICD9: V03.89, (more content not included)... [facility] 02-15-2023 History of Present illness Narrative Reason for Visit Patient presents with: Follow Up: renay Tamara Pandya is a 28 year old female who presents here today for Above Complaints.. Health Maintenance COVID-19 VACCINE(1) PNEUMOCOCCAL(1 - PCV) HEPATITIS C SCREENING HPI Follow up for pleurisy; repeat chest xr 3 days age was normal. She still have some pain in the lower ribs /costal margin on the right side, this pain comes on mostly when she is exerting herself like lifting and moving a lot. Resting it does not hurt. Ok for trial of medrol dose pack Patient is coping with ADD on her own. Has bad days and good days. She has not needed her rescue inhaler sin. I think this will also help her focus. Ce her pneumonia, will get the pneumonia shot today Is concerned about her obesity, is wanting to consider phentermine for weight loss. As GLP-1's did not seem to be covered under her insurance No problem-specific Assessment & Plan notes found for this encounter. PAST MEDICAL HISTORY Diagnosis Date Abdominal pain 10/06/2012 Acne ADD (attention deficit disorder) 02/23/2011 Anemia 10/01/2011 Asthma 12/11/2011 Chest pain 02/20/2013 Depression 10/01/2011 Dizziness 01/16/2012 Family history of heart disease in male family member before age 55 10/01/2011 Fatigue 08/04/2010 Headache(784.0) 12/24/2012 Myopia NEGATIVE HISTORY OF 02/20/2013 Normal Color Vison Pain in joint, ankle and foot 09/04/2011 Snoring 08/04/2010 Static encephalopathy 08/07/2010 Wears glasses PAST SURGICAL HISTORY Procedure Laterality Date DELIVERY ONLY 12/09/2017 FAMILY HISTORY Problem Relation Age of Onset Hypertension Maternal Grandmother GI Maternal Grandmother IBS Alzheimer's Disease Maternal Grandmother Hypertension Paternal Grandmother Cancer Paternal Grandmother Cancer Paternal Grandfather lung Heart Father 2000 from [place] secondary to high cholesterol problem/genetic other ([place]) Father GI Mother IBS, Basilio's, PUD, ulcerative collitis Arthritis Mother autoimmune arthritis other (Disc Disease) Mother other (Prolapse) Mother other (Esophageal stenosis) Mother other (Hiatal hernia) Mother Amblyopia Brother other (cerebral palsy) Brother other (bipolar) Other 2 paternal cousins GI Sister IBS other (Other) Sister Lupus, hypoglycemia other (HELPP Syndrome) Sister Heart Paternal Uncle Asthma Daughter Social History Tobacco Use Smoking status: Never Passive exposure: Yes Smokeless tobacco: Never Tobacco comments: mom and Stepfather smoke outside the home Vaping Use Vaping Use: Never used Substance Use Topics Alcohol use: Yes Comment: social once a month or less Drug use: No Past medical history, appointments, medications, allergies reviewed. Pertinent Lab/Diagnostic Studies are reviewed and discussed today Current Outpatient Medications: ipratropium-albuterol (DUONEB) 0.5 mg-3 mg(2.5 mg base)/3 mL nebu albuterol (PROVENTIL) 2.5 mg /3 mL (0.083 %) nebulizer solution predniSONE (DELTASONE) 10 mg tablet albuterol HFA (VENTOLIN HFA) 90 mcg/actuation inhaler benzonatate (TESSALON PERLE) 100 mg capsule levonorgestrel (MIRENA) 20 mcg/24 hr (5 years) IUD Review of Systems CONSTITUTIONAL: No fevers, chills night sweats, unintended weight loss CARDIOVASCULAR: No chest pain, dyspnea, palpitations, orthopnea, PND, ankle edema. PULM: No dyspnea, unexplained cough. GI: No dysphagia/odynophagia, problematic reflux, constipation, diarrhea, changes in stool habits, hematochezia, melena. : No new urinary complaints, including dysuria, gross hematuria or pyuria. NEURO: No new balance problems, peripheral weakness/paresthesias or numbness of concern. Physical Exam BP 134/70 (BP Site: Left Arm, BP Position: Sitting, BP Cuff Size: Large Adult) Pulse 86 Temp 36.4 C (97.6 F) Resp 14 Ht 162.6 cm (5' 4 ) Wt 122.5 kg (270 lb) LMP 03/16/2017 (Exact Date) SpO2 97% BMI 46.35 kg/m General appearance: Well appearing, alert, in no acute distress, well nourished. Skin: Skin color, texture, turgor normal, no suspicious rashes or lesions Head: Normocephalic, no masses, lesions, tenderness or abnormalities Eyes: Anicteric sclera. Pupils are equally round and reactive to light. Extraocular movements are intact. Lungs: Lungs clear to auscultation. No wheezing, rhonchi, rales Heart: RRR without murmur, gallop, or rubs. Extremities: No deformities, edema, skin discoloration, clubbing or cyanosis. Good capillary refill. ASSESSMENT/PLAN: 1. Muscle spasm - ICD9: 728.85, ICD10: M62.838 (primary diagnosis) Gardiner of cyclobenzaprine. 2. Costochondritis, acute - ICD9: 733.6, ICD10: M94.0 - CYCLOBENZAPRINE 10 MG TABLET - METHYLPREDNISOLONE 4 MG TABLETS IN A DOSE PACK 3. Encounter for immunization - ICD9: V03.89, ICD10: Z23 - PNEUMOCOCCAL VACCINE (PREVNAR 20) 4. Mild intermittent asthma without complication - ICD9: 493.90, ICD10: J45.20 Mild intermittent Asthma stable - Avoidance of triggers recommended - ALBUTEROL SULFATE HFA 90 MCG/ACTUATION AEROSOL INHALER 5. Attention deficit hyperactivity disorder (ADHD), combined type - ICD9: 314.01, ICD10: F90.2 Stable Morbid obesity. For morbid obesity I have given her phentermine at a lower dose to see if she tolerates it and was told to bring it up. She has a 1 month follow-up for blood pressure and heart rate. Lyndsay Mccloud MD documented in this encounter [facility] 02-14-2023 Miscellaneous Notes Spoke with patient. Given message from provider's office. Patient verbalizes understanding. Meghan Alfonso RN Attempted to reach pt by phone but mailbox not set up try later. Esther Peacock LPN Unable to leave message, vm was not set up yet. Bettina Lane LPN ----- Message from Lyndsay Mccloud MD sent at 02/13/2023 8:22 AM EDT ----- Normal chest x-ray ----- Message from Lyndsay Mccloud MD sent at 02/13/2023 8:22 AM EDT ----- Normal chest x-ray documented in this encounter [facility] 02-12-2023 Note HNO ID: [id number] Author: RT Katherine(R) Service: ? Author Type: Plate Glass Installer Helper Type: Progress Notes Filed: 02/12/2023 3:15 PM Note Text: Radiology Service Progress Note PATIENT NAME: Tamara Pandya DATE OF SERVICE: February 12, 2023 TIME: 3:02 PM PATIENT IDENTITY VERIFICATION COMPLETED USING TWO (2) IDENTIFIERS: Name and Date of confirmed by patient verbally. FALL SCREENING: Has the patient had 2 falls in the last year or 1 fall with injury or currently using an Ambulatory Assistive Device (Walker, Cane, Wheelchair, Crutches, etc.)? No PATIENT GENDER DATA: Female. status: : No status: NO. PATIENT RELEVANT IMPLANT DATA REVIEWED: Yes RADIOLOGY DEPARTMENT: General X-ray: Exam(s) Completed: Chest X-Ray PERIPHERAL IV DATA: Not applicable SIGNED BY: RT Katherine(R) February 12, 2023 3:02 PM [facility] 01-25-2023 Note HNO ID: [id number] Author: Lyndsay Mccloud MD Service: ? Author Type: Physician Type: Progress Notes Filed: 01/25/2023 4:16 PM Note Text: Reason for Visit Patient presents with: ED Follow-up: [facility] ER- abdomen pain comes and goes after eating Tamara Pandya is a 28 year old female who presents here today for Above Complaints.. Health Maintenance COVID-19 VACCINE(1) PNEUMOCOCCAL(1 - PCV) HEPATITIS C SCREENING HPI Patient had fever and chills, was congested and had a cough, dx with viral pneumonia. She had the flu with it. Gets some pain when she was breathing started to feel pretty sick. Not sure how they knew it was a viral. 2 weeks since this happened and better now. Sometimes after she eats, and if she is active after work her rib hurts. Us of the galll bladder did not show any stones She had tested positive for covid in our urgent care before she was sent to ER No problem-specific Assessment AND Plan notes found for this encounter. PAST MEDICAL HISTORY Diagnosis Date Abdominal pain 10/06/2012 Acne ADD (attention deficit disorder) 02/23/2011 Anemia 10/01/2011 Asthma 12/11/2011 Chest pain 02/20/2013 Depression 10/01/2011 Dizziness 01/16/2012 Family history of heart disease in male family member before age 55 10/01/2011 Fatigue 08/04/2010 Headache(784.0) 12/24/2012 Myopia NEGATIVE HISTORY OF 02/20/2013 Normal Color Vison Pain in joint, ankle and foot 09/04/2011 Snoring 08/04/2010 Static encephalopathy 08/07/2010 Wears glasses PAST SURGICAL HISTORY Procedure Laterality Date DELIVERY ONLY 12/09/2017 FAMILY HISTORY Problem Relation Age of Onset Hypertension Maternal Grandmother GI Maternal Grandmother IBS Alzheimer's Disease Maternal Grandmother Hypertension Paternal Grandmother Cancer Paternal Grandmother Cancer Paternal Grandfather lung Heart Father 2000 from [place] secondary to high cholesterol problem/genetic other ([place]) Father GI Mother IBS, Basilio's, PUD, ulcerative collitis Arthritis Mother autoimmune arthritis other (Disc Disease) Mother other (Prolapse) Mother other (Esophageal stenosis) Mother other (Hiatal hernia) Mother Amblyopia Brother other (cerebral palsy) Brother other (bipolar) Other 2 paternal cousins GI Sister IBS other (Other) Sister Lupus, hypoglycemia other (HELPP Syndrome) Sister Heart Paternal Uncle Asthma Daughter Social History Tobacco Use Smoking status: Never Passive exposure: Yes Smokeless tobacco: Never Tobacco comments: mom and Stepfather smoke outside the home Vaping Use Vaping Use: Never used Substance Use Topics Alcohol use: Yes Comment: social once a month or less Drug use: No Past medical history, appointments, medications, allergies reviewed. Pertinent Lab/Diagnostic Studies are reviewed and discussed today Current Outpatient Medications: ipratropium-albuterol (DUONEB) 0.5 mg-3 mg(2.5 mg base)/3 mL nebu albuterol (PROVENTIL) 2.5 mg /3 mL (0.083 %) nebulizer solution predniSONE (DELTASONE) 10 mg tablet albuterol HFA (VENTOLIN HFA) 90 mcg/actuation inhaler benzonatate (TESSALON PERLE) 100 mg capsule levonorgestrel (MIRENA) 20 mcg/24 hr (5 years) IUD Review of Systems CONSTITUTIONAL: No fevers, chills night sweats, unintended weight loss CARDIOVASCULAR: No chest pain, dyspnea, palpitations, orthopnea, PND, ankle edema. PULM: No dyspnea, unexplained cough. GI: No dysphagia/odynophagia, problematic reflux, constipation, diarrhea, changes in stool habits, hematochezia, melena. : No new urinary complaints, including dysuria, gross hematuria or pyuria. NEURO: No new balance problems, peripheral weakness/paresthesias or numbness of concern. Physical Exam BP 114/70 (BP Site: Left Arm, BP Position: Sitting, BP Cuff Size: Large Adult) Pulse 95 Temp 36.8 ?C (98.2 ?F) Resp 14 Ht 164.5 cm (5' 4.75 ) Wt 123.4 kg (272 lb) LMP 03/16/2017 (Exact Date) SpO2 98% BMI 45.61 kg/m? General appearance: Well appearing, alert, in no acute distress, well nourished. Skin: Skin color, texture, turgor normal, no suspicious rashes or lesions Head: Normocephalic, no masses, lesions, tenderness or abnormalities Eyes: Anicteric sclera. Pupils are equally round and reactive to light. Extraocular movements are intact. Lungs: Lungs clear to auscultation. No wheezing, rhonchi, rales Heart: RRR without murmur, gallop, or rubs. Extremities: No deformities, edema, skin discoloration, clubbing or cyanosis. Good capillary refill. ASSESSMENT/PLAN: 1. Pleuritic chest pain - ICD9: 786.52, ICD10: R07.81 (primary diagnosis) Reassured, Asked her to take motrin as needed. 2. Viral pneumonia - ICD9: 480.9, ICD10: J12.9 Recheck chest xr in 4 weeks - XR CHEST 2V FRONTAL/LAT Lyndsay Mccloud MD [facility] 01-25-2023 History of Present illness Narrative Reason for Visit Patient presents with: ED Follow-up: [facility] ER- abdomen pain comes and goes after eating Tamara S Mumtaz is a 28 year old female who presents here today for Above Complaints.. Health Maintenance COVID-19 VACCINE(1) PNEUMOCOCCAL(1 - PCV) HEPATITIS C SCREENING HPI Patient had fever and chills, was congested and had a cough, dx with viral pneumonia. She had the flu with it. Gets some pain when she was breathing started to feel pretty sick. Not sure how they knew it was a viral. 2 weeks since this happened and better now. Sometimes after she eats, and if she is active after work her rib hurts. Us of the galll bladder did not show any stones She had tested positive for covid in our urgent care before she was sent to ER No problem-specific Assessment & Plan notes found for this encounter. PAST MEDICAL HISTORY Diagnosis Date Abdominal pain 10/06/2012 Acne ADD (attention deficit disorder) 02/23/2011 Anemia 10/01/2011 Asthma 12/11/2011 Chest pain 02/20/2013 Depression 10/01/2011 Dizziness 01/16/2012 Family history of heart disease in male family member before age 55 10/01/2011 Fatigue 08/04/2010 Headache(784.0) 12/24/2012 Myopia NEGATIVE HISTORY OF 02/20/2013 Normal Color Vison Pain in joint, ankle and foot 09/04/2011 Snoring 08/04/2010 Static encephalopathy 08/07/2010 Wears glasses PAST SURGICAL HISTORY Procedure Laterality Date DELIVERY ONLY 12/09/2017 FAMILY HISTORY Problem Relation Age of Onset Hypertension Maternal Grandmother GI Maternal Grandmother IBS Alzheimer's Disease Maternal Grandmother Hypertension Paternal Grandmother Cancer Paternal Grandmother Cancer Paternal Grandfather lung Heart Father 2000 from [place] secondary to high cholesterol problem/genetic other ([place]) Father GI Mother IBS, Basilio's, PUD, ulcerative collitis Arthritis Mother autoimmune arthritis other (Disc Disease) Mother other (Prolapse) Mother other (Esophageal stenosis) Mother other (Hiatal hernia) Mother Amblyopia Brother other (cerebral palsy) Brother other (bipolar) Other 2 paternal cousins GI Sister IBS other (Other) Sister Lupus, hypoglycemia other (HELPP Syndrome) Sister Heart Paternal Uncle Asthma Daughter Social History Tobacco Use Smoking status: Never Passive exposure: Yes Smokeless tobacco: Never Tobacco comments: mom and Stepfather smoke outside the home Vaping Use Vaping Use: Never used Substance Use Topics Alcohol use: Yes Comment: social once a month or less Drug use: No Past medical history, appointments, medications, allergies reviewed. Pertinent Lab/Diagnostic Studies are reviewed and discussed today Current Outpatient Medications: ipratropium-albuterol (DUONEB) 0.5 mg-3 mg(2.5 mg base)/3 mL nebu albuterol (PROVENTIL) 2.5 mg /3 mL (0.083 %) nebulizer solution predniSONE (DELTASONE) 10 mg tablet albuterol HFA (VENTOLIN HFA) 90 mcg/actuation inhaler benzonatate (TESSALON PERLE) 100 mg capsule levonorgestrel (MIRENA) 20 mcg/24 hr (5 years) IUD Review of Systems CONSTITUTIONAL: No fevers, chills night sweats, unintended weight loss CARDIOVASCULAR: No chest pain, dyspnea, palpitations, orthopnea, PND, ankle edema. PULM: No dyspnea, unexplained cough. GI: No dysphagia/odynophagia, problematic reflux, constipation, diarrhea, changes in stool habits, hematochezia, melena. : No new urinary complaints, including dysuria, gross hematuria or pyuria. NEURO: No new balance problems, peripheral weakness/paresthesias or numbness of concern. Physical Exam BP 114/70 (BP Site: Left Arm, BP Position: Sitting, BP Cuff Size: Large Adult) Pulse 95 Temp 36.8 C (98.2 F) Resp 14 Ht 164.5 cm (5' 4.75 ) Wt 123.4 kg (272 lb) LMP 03/16/2017 (Exact Date) SpO2 98% BMI 45.61 kg/m General appearance: Well appearing, alert, in no acute distress, well nourished. Skin: Skin color, texture, turgor normal, no suspicious rashes or lesions Head: Normocephalic, no masses, lesions, tenderness or abnormalities Eyes: Anicteric sclera. Pupils are equally round and reactive to light. Extraocular movements are intact. Lungs: Lungs clear to auscultation. No wheezing, rhonchi, rales Heart: RRR without murmur, gallop, or rubs. Extremities: No deformities, edema, skin discoloration, clubbing or cyanosis. Good capillary refill. ASSESSMENT/PLAN: 1. Pleuritic chest pain - ICD9: 786.52, ICD10: R07.81 (primary diagnosis) Reassured, Asked her to take motrin as needed. 2. Viral pneumonia - ICD9: 480.9, ICD10: J12.9 Recheck chest xr in 4 weeks - XR CHEST 2V FRONTAL/LAT Lyndsay Mccloud MD documented in this encounter [facility] 01-23-2023 Note HNO ID: [id number] Author: Natasha Michel RDMS Service: ? Author Type: Plate Glass Installer Helper Type: Progress Notes Filed: 01/23/2023 2:17 PM Note Text: Radiology Service Progress Note PATIENT NAME: Tamara Pandya DATE OF SERVICE: January 23, 2023 TIME: 2:16 PM PATIENT IDENTITY VERIFICATION COMPLETED USING TWO (2) IDENTIFIERS: Name and Date of confirmed by patient verbally. FALL SCREENING: Has the patient had 2 falls in the last year or 1 fall with injury or currently using an Ambulatory Assistive Device (Walker, Cane, Wheelchair, Crutches, etc.)? No PATIENT GENDER DATA: Female PATIENT RELEVANT IMPLANT DATA REVIEWED: Not Applicable RADIOLOGY DEPARTMENT: Ultrasound PERIPHERAL IV DATA: Not applicable SIGNED BY: Natasha Michel RDMS January 23, 2023 2:16 PM [facility] 01-23-2023 History of Present illness Narrative Radiology Service Progress Note PATIENT NAME: Tamara Pandya DATE OF SERVICE: January 23, 2023 TIME: 2:16 PM PATIENT IDENTITY VERIFICATION COMPLETED USING TWO (2) IDENTIFIERS: Name and Date of confirmed by patient verbally. FALL SCREENING: Has the patient had 2 falls in the last year or 1 fall with injury or currently using an Ambulatory Assistive Device (Walker, Cane, Wheelchair, Crutches, etc.)? No PATIENT GENDER DATA: Female PATIENT RELEVANT IMPLANT DATA REVIEWED: Not Applicable RADIOLOGY DEPARTMENT: Ultrasound PERIPHERAL IV DATA: Not applicable SIGNED BY: Natasha Michel RDMS January 23, 2023 2:16 PM documented in this encounter [facility] 01-08-2023 Note HNO ID: [id number] Author: Tom Joy APRN.DHARA Service: ? Author Type: Nurse Practitioner Type: Progress Notes Filed: 01/08/2023 3:44 PM Note Text: Subjective HPI Nontoxic-appearing female presents urgent care flulike symptoms. Duration of symptoms 2 days. Associated symptoms cough fever chest pain shortness of breath pleuritic pain. Patient states she is having increasing chest pain over the last few hours. Hurts to take deep breath. Is unable to sit because it causes pressure in her lungs . States pain is only present with taking deep breaths. Denies any known sick contacts. Denies productive cough or hemoptysis. Past medical history prescription medication use allergies reviewed. .Patient presents with: Nasal Congestion: drainage, cough, fever, chills and ear pain x 2 days, started with fatigue PAST MEDICAL HISTORY Diagnosis Date Abdominal pain 10/06/2012 Acne ADD (attention deficit disorder) 02/23/2011 Anemia 10/01/2011 Asthma 12/11/2011 Chest pain 02/20/2013 Depression 10/01/2011 Dizziness 01/16/2012 Family history of heart disease in male family member before age 55 10/01/2011 Fatigue 08/04/2010 Headache(784.0) 12/24/2012 Myopia NEGATIVE HISTORY OF 02/20/2013 Normal Color Vison Pain in joint, ankle and foot 09/04/2011 Snoring 08/04/2010 Static encephalopathy 08/07/2010 Wears glasses PAST SURGICAL HISTORY Procedure Laterality Date DELIVERY ONLY 12/09/2017 ALLERGIES Potassium Clavulanate, Seasonal Allergies, and Augmentin [Amoxicillin-Pot Clavulanate] MEDICATIONS ipratropium-albuterol (DUONEB) 0.5 mg-3 mg(2.5 mg base)/3 mL nebu Inhale 3 mL as instructed every 4 hours as needed for wheezing/shortness of breath. albuterol (PROVENTIL) 2.5 mg /3 mL (0.083 %) nebulizer solution Use 3 mL via nebulizer every 4 hours as needed for wheezing/shortness of breath. Use over 5-15minutes. albuterol HFA (VENTOLIN HFA) 90 mcg/actuation inhaler Inhale 2 Puffs as instructed every 4 hours as needed for wheezing/shortness of breath. Inhale by mouth as instructed. levonorgestrel (MIRENA) 20 mcg/24 hr (5 years) IUD Inserted in office predniSONE (DELTASONE) 10 mg tablet Take 4 tabs daily for 3 days, then 2 tabs daily for 3 days, then 1 tab daily for 3 days with food. (Patient not taking: Reported on 01/08/2023) benzonatate (TESSALON PERLE) 100 mg capsule Take 2 capsules by mouth three times daily as needed. (Patient not taking: Reported on 01/08/2023) FAMILY HISTORY Problem Relation Age of Onset Hypertension Maternal Grandmother GI Maternal Grandmother IBS Alzheimer's Disease Maternal Grandmother Hypertension Paternal Grandmother Cancer Paternal Grandmother Cancer Paternal Grandfather lung Heart Father 2000 from [place] secondary to high cholesterol problem/genetic other ([place]) Father GI Mother IBS, Basilio's, PUD, ulcerative collitis Arthritis Mother autoimmune arthritis other (Disc Disease) Mother other (Prolapse) Mother other (Esophageal stenosis) Mother other (Hiatal hernia) Mother Amblyopia Brother other (cerebral palsy) Brother other (bipolar) Other 2 paternal cousins GI Sister IBS other (Other) Sister Lupus, hypoglycemia other (HELPP Syndrome) Sister Heart Paternal Uncle Asthma Daughter Social History Tobacco Use Smoking status: Never Passive exposure: Yes Smokeless tobacco: Never Tobacco comments: mom and Stepfather smoke outside the home Vaping Use Vaping Use: Never used Substance Use Topics Alcohol use: Yes Comment: social once a month or less Drug use: No BP 108/68 Pulse 112 Temp 36.6 ?C (97.9 ?F) Resp 16 Wt 123.4 kg (272 lb) LMP 03/16/2017 (Exact Date) SpO2 99% BMI 45.97 kg/m? Review of Systems Constitutional: Positive for chills, fever and malaise/fatigue. Negative for weight loss. HENT: Negative for congestion, ear discharge, ear pain, sinus pain and sore throat. Eyes: Negative for blurred vision, pain, discharge and redness. Respiratory: Positive for cough and shortness of breath. Negative for hemoptysis, sputum production, wheezing and stridor. Cardiovascular: Positive for chest pain. Gastrointestinal: Negative for abdominal pain, diarrhea, nausea and vomiting. Musculoskeletal: Positive for myalgias. Skin: Negative for itching and rash. Neurological: Positive for headaches. Negative for dizziness. Objective Physical Exam Constitutional: General: She is not in acute distress. Appearance: She is not diaphoretic. HENT: Head: Normocephalic. Eyes: Conjunctiva/sclera: Conjunctivae normal. Pupils: Pupils are equal, round, and reactive to light. Cardiovascular: Rate and Rhythm: Regular rhythm. Tachycardia present. Heart sounds: Normal heart sounds. Pulmonary: Effort: Pulmonary effort is normal. No tachypnea, accessory muscle usage or respiratory distress. Breath sounds: Normal breath sounds. No stridor. No wheezing, rhonchi o (more content not included)... [facility] 01-08-2023 Instructions Tom Joy APRN.C[employer]AR HEAD PERFORATOR - 01/08/2023 3:35 PM EDT How to Manage Common Symptoms Associated with COVID for Adults Fever- Fever is a temperature over 100.4 F and can occur when the body is fighting an infection. To help treat a fever: Drink plenty of fluids and stay well hydrated. Eat small amounts of easy to digest food. Rest. Your body needs rest to recover, but getting up and moving around the house frequently is a good idea. You should try to continue doing your normal daily activities (bathing, toileting, grooming, cooking), though you will probably feel tired, and need to rest often. Avoid any heavy activity or exercise, as this will increase your body temperature. Dress in light clothing and stay covered in a light sheet. Keep the room temperature cool. Take a slightly warm (not cold or cool) bath, or apply damp washcloths to the forehead and wrists. Cough- Cough is a common symptom associated with COVID and can be bothersome. To help treat a cough: Stay well hydrated. Try warm water or tea with lemon and/or honey to help soothe the cough. Use a humidifier to add moisture to the air. Try a product with menthol, like a cough drop or a rub for your chest such as Vicks, which can help reduce cough. Try cough drops. Avoid smoking and other strong odors or perfumes. Try breathing exercises to keep your lungs open and clear. Take a big deep breath through your nose and hold for 5 seconds before slowly releasing. Repeat frequently, while you are awake. Congestion- Runny nose or nasal congestion can occur with COVID. Treatment can help relieve symptoms: Try OTC nasal saline spray, or nasal saline rinse to relieve mucus congestion. Nasal strips can help keep nasal passages open, to increase airflow. Elevating your head with an extra pillow in bed can help reduce congestion. Using a humidifier can increase moisture in the air, and make breathing easier. Sore Throat- Another common symptom with COVID, can be managed at home by: Stay well hydrated. Gargle with salt water - mix teaspoon salt with 1 cup of warm water and gargle. This helps to loosen mucus in the back of the throat and may reduce discomfort. Try ice chips, popsicles or lozenges to soothe the throat. Nausea/Vomiting/Diarrhea- These are common symptoms, and staying hydrated is most important. If you are nauseous or vomiting, start with small sips of water every 10-15 minutes and increase as tolerated. You can try sucking an ice cube too. If tolerating, you can try pedialyte or Gatorade, or flat sprite or meghan-cyndi. Start slowly and increase as you are able to. Instead of meals, try smaller, more frequent snacks. Try eating bland foods like crackers, toast, rice, and applesauce. Avoid spicy, greasy or fried foods and dairy containing foods. Even if you aren't feeling hungry due to lack of smell or taste, it is important to try to take in some food when you are able. After drinking and eating, rest in an upright position for up to two hours as needed to help decrease nauseous feelings. Try closing your eyes, avoid moving and watching TV. Avoid strong odors that can make you feel more nauseated. When to seek emergency medical attention Look for emergency warning signs for COVID-19. If having any of these symptoms, seek emergency medical care immediately: Trouble breathing Persistent pain or pressure in the chest New confusion Inability to wake or stay awake Bluish lips or face *This list is not all possible symptoms. Please call your medical provider for any other symptoms that are severe or concerning to you. documented in this encounter [facility] 01-08-2023 History of Present illness Narrative Subjective HPI Nontoxic-appearing female presents urgent care flulike symptoms. Duration of symptoms 2 days. Associated symptoms cough fever chest pain shortness of breath pleuritic pain. Patient states she is having increasing chest pain over the last few hours. Hurts to take deep breath. Is unable to sit because it causes pressure in her lungs . States pain is only present with taking deep breaths. Denies any known sick contacts. Denies productive cough or hemoptysis. Past medical history prescription medication use allergies reviewed. .Patient presents with: Nasal Congestion: drainage, cough, fever, chills and ear pain x 2 days, started with fatigue PAST MEDICAL HISTORY Diagnosis Date Abdominal pain 10/06/2012 Acne ADD (attention deficit disorder) 02/23/2011 Anemia 10/01/2011 Asthma 12/11/2011 Chest pain 02/20/2013 Depression 10/01/2011 Dizziness 01/16/2012 Family history of heart disease in male family member before age 55 10/01/2011 Fatigue 08/04/2010 Headache(784.0) 12/24/2012 Myopia NEGATIVE HISTORY OF 02/20/2013 Normal Color Vison Pain in joint, ankle and foot 09/04/2011 Snoring 08/04/2010 Static encephalopathy 08/07/2010 Wears glasses PAST SURGICAL HISTORY Procedure Laterality Date DELIVERY ONLY 12/09/2017 ALLERGIES Potassium Clavulanate, Seasonal Allergies, and Augmentin [Amoxicillin-Pot Clavulanate] MEDICATIONS ipratropium-albuterol (DUONEB) 0.5 mg-3 mg(2.5 mg base)/3 mL nebu Inhale 3 mL as instructed every 4 hours as needed for wheezing/shortness of breath. albuterol (PROVENTIL) 2.5 mg /3 mL (0.083 %) nebulizer solution Use 3 mL via nebulizer every 4 hours as needed for wheezing/shortness of breath. Use over 5-15minutes. albuterol HFA (VENTOLIN HFA) 90 mcg/actuation inhaler Inhale 2 Puffs as instructed every 4 hours as needed for wheezing/shortness of breath. Inhale by mouth as instructed. levonorgestrel (MIRENA) 20 mcg/24 hr (5 years) IUD Inserted in office predniSONE (DELTASONE) 10 mg tablet Take 4 tabs daily for 3 days, then 2 tabs daily for 3 days, then 1 tab daily for 3 days with food. (Patient not taking: Reported on 01/08/2023) benzonatate (TESSALON PERLE) 100 mg capsule Take 2 capsules by mouth three times daily as needed. (Patient not taking: Reported on 01/08/2023) FAMILY HISTORY Problem Relation Age of Onset Hypertension Maternal Grandmother GI Maternal Grandmother IBS Alzheimer's Disease Maternal Grandmother Hypertension Paternal Grandmother Cancer Paternal Grandmother Cancer Paternal Grandfather lung Heart Father 2000 from [place] secondary to high cholesterol problem/genetic other ([place]) Father GI Mother IBS, Basilio's, PUD, ulcerative collitis Arthritis Mother autoimmune arthritis other (Disc Disease) Mother other (Prolapse) Mother other (Esophageal stenosis) Mother other (Hiatal hernia) Mother Amblyopia Brother other (cerebral palsy) Brother other (bipolar) Other 2 paternal cousins GI Sister IBS other (Other) Sister Lupus, hypoglycemia other (HELPP Syndrome) Sister Heart Paternal Uncle Asthma Daughter Social History Tobacco Use Smoking status: Never Passive exposure: Yes Smokeless tobacco: Never Tobacco comments: mom and Stepfather smoke outside the home Vaping Use Vaping Use: Never used Substance Use Topics Alcohol use: Yes Comment: social once a month or less Drug use: No BP 108/68 Pulse 112 Temp 36.6 C (97.9 F) Resp 16 Wt 123.4 kg (272 lb) LMP 03/16/2017 (Exact Date) SpO2 99% BMI 45.97 kg/m Review of Systems Constitutional: Positive for chills, fever and malaise/fatigue. Negative for weight loss. HENT: Negative for congestion, ear discharge, ear pain, sinus pain and sore throat. Eyes: Negative for blurred vision, pain, discharge and redness. Respiratory: Positive for cough and shortness of breath. Negative for hemoptysis, sputum production, wheezing and stridor. Cardiovascular: Positive for chest pain. Gastrointestinal: Negative for abdominal pain, diarrhea, nausea and vomiting. Musculoskeletal: Positive for myalgias. Skin: Negative for itching and rash. Neurological: Positive for headaches. Negative for dizziness. Objective Physical Exam Constitutional: General: She is not in acute distress. Appearance: She is not diaphoretic. HENT: Head: Normocephalic. Eyes: Conjunctiva/sclera: Conjunctivae normal. Pupils: Pupils are equal, round, and reactive to light. Cardiovascular: Rate and Rhythm: Regular rhythm. Tachycardia present. Heart sounds: Normal heart sounds. Pulmonary: Effort: Pulmonary effort is normal. No tachypnea, accessory muscle usage or respiratory distress. Breath sounds: Normal breath sounds. No stridor. No wheezing, rhonchi or rales. Chest: Chest wall: Tenderness present. Abdominal: Palpations: Abdomen is soft. Tenderness: There is no abdominal tenderness. Musculoskeletal: Cervical back: Normal range of motion. Skin: General: Skin is warm and dry. Neurological: Mental Status: She is alert and oriented to person, place, and time. ASSESSMENT/PLAN: 1. Viral illness - ICD9: 079.99, ICD10: B34.9 (primary diagnosis) - COVID WITH FLUA+B, ROUTINE 2. Pleuritic pain - ICD9: 786.52, ICD10: R07.81 Patient had significant pleuritic pain with inhalation. Accompanied with chest pain tachycardia recommend patient be seen ED for further valuation care. Patient states will be seen at [facility] verbalized understanding agrees plan of care. Tom Joy APRN.DHARA documented in this encounter [facility] 12-20-2022 Note HNO ID: [id number] Author: Migdalia Joaquin APRN.CNP Service: ? Author Type: Nurse Practitioner Type: Progress Notes Filed: 12/20/2022 11:54 AM Note Text: Tamara is a 27 year old who presents for an annual gynecologic exam without complaints. Menses: no menses - Mirena IUD. Random light cycle Contraception: IUD HPV vaccine: Yes Last Pap: 06/10/2017 abnormal, LSIL HPV: N/A History of abnormal pap: No Last mammogram: never Sexually active: Yes Patient concerns for STD exposure: No. Pain with intercourse: No Postcoital bleeding: No OB History T1 L1 SAB0 IAB0 Ectopic0 Multiple0 Live Births1 Waters[employer] Manager History LMP: 03/16/2017 (Exact Date), IUD Age at Menarche: Age at First : Age at Menopause: Watershed Manager History Comments: Sexual Activity: Yes; Male Contraception: I.U.D. PAST MEDICAL HISTORY Diagnosis Date Abdominal pain 10/06/2012 Acne ADD (attention deficit disorder) 02/23/2011 Anemia 10/01/2011 Asthma 12/11/2011 Chest pain 02/20/2013 Depression 10/01/2011 Dizziness 01/16/2012 Family history of heart disease in male family member before age 55 10/01/2011 Fatigue 08/04/2010 Headache(784.0) 12/24/2012 Myopia NEGATIVE HISTORY OF 02/20/2013 Normal Color Vison Pain in joint, ankle and foot 09/04/2011 Snoring 08/04/2010 Static encephalopathy 08/07/2010 Wears glasses PAST SURGICAL HISTORY Procedure Laterality Date DELIVERY ONLY 12/09/2017 FAMILY HISTORY Problem Relation Age of Onset Hypertension Maternal Grandmother GI Maternal Grandmother IBS Alzheimer's Disease Maternal Grandmother Hypertension Paternal Grandmother Cancer Paternal Grandmother Cancer Paternal Grandfather lung Heart Father 2000 from [place] secondary to high cholesterol problem/genetic other ([place]) Father GI Mother IBS, Basilio's, PUD, ulcerative collitis Arthritis Mother autoimmune arthritis other (Disc Disease) Mother other (Prolapse) Mother other (Esophageal stenosis) Mother other (Hiatal hernia) Mother Amblyopia Brother other (cerebral palsy) Brother other (bipolar) Other 2 paternal cousins GI Sister IBS other (Other) Sister Lupus, hypoglycemia other (HELPP Syndrome) Sister Heart Paternal Uncle Asthma Daughter SOCIAL HISTORY Social History Tobacco Use Smoking status: Never Passive exposure: Yes Smokeless tobacco: Never Tobacco comments: mom and Stepfather smoke outside the home Vaping Use Vaping Use: Never used Substance Use Topics Alcohol use: Yes Comment: social once a month or less Drug use: No REVIEW OF SYSTEMS Abdomen: No abdominal pain, nausea, vomiting, diarrhea, or constipation. No bloating, early satiety, indigestion, or increased flatulence. Bladder: No dysuria, gross hematuria, urinary frequency, urinary urgency, or incontinence. Breast: No breast lumps, nipple d/c, overlying skin changes, redness or skin retraction. Allergies and current medication updated:Yes EXAM: BP 118/76 Ht 5' 4.5 (1.64m) Wt 264 lb (119.8kg) LMP 03/16/2017 BMI 44.63 kg/(m2). GENERAL: pleasant, female in no apparent distress HEENT: Normocephalic, atraumatic, and no lesions NECK: Supple, full range of motion, no adenopathy, and thyroid normal DERMATOLOGY: Normal, without lesions, non-icteric, and non-hirsute BREAST: soft, non-tender, symmetric, normal nipple-areolar complex, no lymphadenopathy, and no nipple discharge. Fibrocystic breast tissue. Small lump at the 5 o'clock location of the right breat- likely cyst CHEST: Normal inspiratory effort ABDOMEN: soft, non-tender, and no masses PELVIC: external genitalia normal, normal Bartholin's glands, urethra, Cliff[place]'s glands, no vulvar lesions, no cervical lesions, good vaginal support, physiologic discharge present, normal appearing perineal body and perianal region BIMANUAL: uterus normal size, shape and consistency, no adnexal masses, non-tender, and difficult to assess due to body habitus RECTOVAGINAL: deferred. NEURO: alert and oriented x3,exam grossly non-focal EXTREMITIES: normal ASSESSMENT/PLAN: 1) Health maintenance: Pap done with reflex HPV. Mammogram starting age 40. Nutrition, exercise and routine health maintenance exams reviewed. Breast US of the right breast ordered 2) Contraception: IUD. Contraceptive options reviewed and information provided. 3) STD screening: Declined STD check. 4) Follow up one year or sooner as needed Migdalia Joaquin APRN.[facility] 12-20-2022 History of Present illness Narrative Tamara is a 27 year old who presents for an annual gynecologic exam without complaints. Menses: no menses - Mirena IUD. Random light cycle Contraception: IUD HPV vaccine: Yes Last Pap: 06/10/2017 abnormal, LSIL HPV: N/A History of abnormal pap: No Last mammogram: never Sexually active: Yes Patient concerns for STD exposure: No. Pain with intercourse: No Postcoital bleeding: No OB History T1 L1 SAB0 IAB0 Ectopic0 Multiple0 Live Births1 [employer] Manager History LMP: 03/16/2017 (Exact Date), IUD Age at Menarche: Age at First : Age at Menopause: Waters[employer] Manager History Comments: Sexual Activity: Yes; Male Contraception: I.U.D. PAST MEDICAL HISTORY Diagnosis Date Abdominal pain 10/06/2012 Acne ADD (attention deficit disorder) 02/23/2011 Anemia 10/01/2011 Asthma 12/11/2011 Chest pain 02/20/2013 Depression 10/01/2011 Dizziness 01/16/2012 Family history of heart disease in male family member before age 55 10/01/2011 Fatigue 08/04/2010 Headache(784.0) 12/24/2012 Myopia NEGATIVE HISTORY OF 02/20/2013 Normal Color Vison Pain in joint, ankle and foot 09/04/2011 Snoring 08/04/2010 Static encephalopathy 08/07/2010 Wears glasses PAST SURGICAL HISTORY Procedure Laterality Date DELIVERY ONLY 12/09/2017 FAMILY HISTORY Problem Relation Age of Onset Hypertension Maternal Grandmother GI Maternal Grandmother IBS Alzheimer's Disease Maternal Grandmother Hypertension Paternal Grandmother Cancer Paternal Grandmother Cancer Paternal Grandfather lung Heart Father 2000 from [place] secondary to high cholesterol problem/genetic other ([place]) Father GI Mother IBS, Basilio's, PUD, ulcerative collitis Arthritis Mother autoimmune arthritis other (Disc Disease) Mother other (Prolapse) Mother other (Esophageal stenosis) Mother other (Hiatal hernia) Mother Amblyopia Brother other (cerebral palsy) Brother other (bipolar) Other 2 paternal cousins GI Sister IBS other (Other) Sister Lupus, hypoglycemia other (HELPP Syndrome) Sister Heart Paternal Uncle Asthma Daughter SOCIAL HISTORY Social History Tobacco Use Smoking status: Never Passive exposure: Yes Smokeless tobacco: Never Tobacco comments: mom and Stepfather smoke outside the home Vaping Use Vaping Use: Never used Substance Use Topics Alcohol use: Yes Comment: social once a month or less Drug use: No REVIEW OF SYSTEMS Abdomen: No abdominal pain, nausea, vomiting, diarrhea, or constipation. No bloating, early satiety, indigestion, or increased flatulence. Bladder: No dysuria, gross hematuria, urinary frequency, urinary urgency, or incontinence. Breast: No breast lumps, nipple d/c, overlying skin changes, redness or skin retraction. Allergies and current medication updated:Yes EXAM: BP 118/76 Ht 5' 4.5 (1.64m) Wt 264 lb (119.8kg) LMP 03/16/2017 BMI 44.63 kg/(m^2). GENERAL: pleasant, female in no apparent distress HEENT: Normocephalic, atraumatic, and no lesions NECK: Supple, full range of motion, no adenopathy, and thyroid normal DERMATOLOGY: Normal, without lesions, non-icteric, and non-hirsute BREAST: soft, non-tender, symmetric, normal nipple-areolar complex, no lymphadenopathy, and no nipple discharge. Fibrocystic breast tissue. Small lump at the 5 o'clock location of the right breat- likely cyst CHEST: Normal inspiratory effort ABDOMEN: soft, non-tender, and no masses PELVIC: external genitalia normal, normal Bartholin's glands, urethra, Cliff[place]'s glands, no vulvar lesions, no cervical lesions, good vaginal support, physiologic discharge present, normal appearing perineal body and perianal region BIMANUAL: uterus normal size, shape and consistency, no adnexal masses, non-tender, and difficult to assess due to body habitus RECTOVAGINAL: deferred. NEURO: alert and oriented x3,exam grossly non-focal EXTREMITIES: normal ASSESSMENT/PLAN: 1) Health maintenance: Pap done with reflex HPV. Mammogram starting age 40. Nutrition, exercise and routine health maintenance exams reviewed. Breast US of the right breast ordered 2) Contraception: IUD. Contraceptive options reviewed and information provided. 3) STD screening: Declined STD check. 4) Follow up one year or sooner as needed Migdalia Joaquin APRN.DHARA documented in this encounter [facility] 09-25-2022 Miscellaneous Notes Mother calls to report that [facility] didn't receive nebulizer administration set orders. Re-faxed to [phone] per request. Clare Coughlin RN documented in this encounter [facility] 09-25-2022 Note HNO ID: [id number] Author: Conchita Pardo APRN.DHARA Service: ? Author Type: Nurse Practitioner Type: Progress Notes Filed: 09/25/2022 11:07 AM Note Text: SUBJECTIVE Tamara Pandya is a 27 year old female here today for acute concerns. Chief Complaint Patient presents with: Asthma: flare started 09/23/22 and mom states she is having asthma attack about every 2 hours. Recheck: UC visit on 09/24/22 and dx with flu HPI Tamara Pandya is a 27 year old female here today acutely due to concerns of worsening asthma. Accompanied by her mother. She was actually seen yesterday in [facility] for the cough, congestion. Onset was about 5-6 days ago. Exposed to flu A and positive for flu A. Negative flu B and COVID. Was prescribed mucinex, benzonatate, prednisone and inhaler PRN. Sister has pneumonia. Mom is concerned. SOB is same, not improving. Using her inhaler every 4 but not working for that long. Does give some relief. Cough is not productive. Chest is tight. Her medications were reviewed today and her list is now up to date. Medications Current Outpatient Medications Medication Sig predniSONE (DELTASONE) 10 mg tablet Take 4 tabs daily for 3 days, then 2 tabs daily for 3 days, then 1 tab daily for 3 days with food. albuterol HFA (VENTOLIN HFA) 90 mcg/actuation inhaler Inhale 2 Puffs as instructed every 4 hours as needed for wheezing/shortness of breath. Inhale by mouth as instructed. benzonatate (TESSALON PERLE) 100 mg capsule Take 2 capsules by mouth three times daily as needed. levonorgestrel (MIRENA) 20 mcg/24 hr (5 years) IUD Inserted in office azithromycin (ZITHROMAX) 250 mg tablet Take 2 tablets by mouth once daily for 1 day, THEN 1 tablet once daily for 4 days. ipratropium-albuterol (DUONEB) 0.5 mg-3 mg(2.5 mg base)/3 mL nebu Inhale 3 mL as instructed every 4 hours as needed for wheezing/shortness of breath. albuterol (PROVENTIL) 2.5 mg /3 mL (0.083 %) nebulizer solution Use 3 mL via nebulizer every 4 hours as needed for wheezing/shortness of breath. Use over 5-15minutes. guaiFENesin (MUCINEX) 600 mg 12 hr tablet Take 2 tablets by mouth twice daily. (Patient not taking: Reported on 09/25/2022) No current facility-administered medications for this visit. ALLERGIES Allergen Reactions Potassium Clavulana* Swelling Seasonal Allergies Other: See Comments Watery eyes,triggers asthma. Augmentin [Amoxicil* Vomiting ACTIVE PROBLEM LIST Rh Negative State in Antepartum Period - 05/29/2017 Poor Support System Affecting , Antepartum - 05/09/2017 Comment: 05/09/2017Patient states FOB is aware she is but she is unsure if he wants to be involced at this point. She plans on keeping the baby. TKRN Obesity in - 05/09/2017 Comment: 05/09/2017She is obese. Will plan on GCT @ [facility].TKRN History of Depression - 05/09/2017 Comment: 05/09/2017 Pt has a history of depression diagnosed diagnosed at age 16 [address] treated [address] Chowdhury at [facility]. She has been off medication for 2 years . She believes she is doing well off medication. Discussed increased risks of depression during and and importance of reporting the development or worsening of symptoms should they occur.Pt states she had suicidal thoughts in the past but none since age 17. TKRN History of Asthma - 05/09/2017 Comment: 05/09/2017Patient has a history of asthma treated by Dr Zacarias.TKRN Crps (Complex Regional Pain Syndrome), Upper Limb - 07/28/2015 Family History of Lupus Anticoagulant Disorder - 07/28/2015 Priya Positive - 12/25/2012 Fibromyalgia - 12/25/2012 Crps (Complex Regional Pain Syndrome) Type I of Lower Limb - 02/25/2012 Asthma - 12/11/2011 Family History of Heart Disease in Male Family Member Before Age 55 - 10/01/2011 Depression - 10/01/2011 Add (Attention Deficit Disorder) - 02/23/2011 Acne Vulgaris: Inflammatory and Comedonal Grade III to IV: face AND chest > back - 02/07/2011 Static Encephalopathy - 08/07/2010 Social History Tobacco Use Smoking status: Never Passive exposure: Yes Smokeless tobacco: Never Tobacco comments: mom and Stepfather smoke outside the home Vaping Use Vaping Use: Never used Substance Use Topics Alcohol use: Yes Comment: social once a month or less Drug use: No Review of Systems Respiratory: Positive for cough, chest tightness, shortness of breath and wheezing. Negative for apnea, choking and stridor. Cardiovascular: Negative. OBJECTIVE BP 114/78 Pulse 76 Temp (Src) 97.8 (Left Tympanic) Resp 20 Wt 257 lb (116.6kg) SpO2 99% LMP 03/16/2017 Physical Exam Vitals and nursing note reviewed. Constitutional: General: She is awake. She is not in acute distress. Appearance: She is ill-appearing. She is not toxic-appearing or diaphoretic. HENT: Head: Normocephalic. Cardiovascular: Rate and Rhythm: Normal rate and regular rhythm. Heart sounds: Norm (more content not included)... [facility] 09-25-2022 History of Present illness Narrative SUBJECTIVE Tamara Pandya is a 27 year old female here today for acute concerns. Chief Complaint Patient presents with: Asthma: flare started 09/23/22 and mom states she is having asthma attack about every 2 hours. Recheck: visit on 09/24/22 and dx with flu HPI Tamara Pandya is a 27 year old female here today acutely due to concerns of worsening asthma. Accompanied by her mother. She was actually [facility] yesterday in [facility] for the cough, congestion. Onset was about 5-6 days ago. Exposed to flu A and positive for flu A. Negative flu B and COVID. Was prescribed mucinex, benzonatate, prednisone and inhaler PRN. Sister has pneumonia. Mom is concerned. SOB is same, not improving. Using her inhaler every 4 but not working for that long. Does give some relief. Cough is not productive. Chest is tight. Her medications were reviewed today and her list is now up to date. Medications Current Outpatient Medications Medication Sig predniSONE (DELTASONE) 10 mg tablet Take 4 tabs daily for 3 days, then 2 tabs daily for 3 days, then 1 tab daily for 3 days with food. albuterol HFA (VENTOLIN HFA) 90 mcg/actuation inhaler Inhale 2 Puffs as instructed every 4 hours as needed for wheezing/shortness of breath. Inhale by mouth as instructed. benzonatate (TESSALON PERLE) 100 mg capsule Take 2 capsules by mouth three times daily as needed. levonorgestrel (MIRENA) 20 mcg/24 hr (5 years) IUD Inserted in office azithromycin (ZITHROMAX) 250 mg tablet Take 2 tablets by mouth once daily for 1 day, THEN 1 tablet once daily for 4 days. ipratropium-albuterol (DUONEB) 0.5 mg-3 mg(2.5 mg base)/3 mL nebu Inhale 3 mL as instructed every 4 hours as needed for wheezing/shortness of breath. albuterol (PROVENTIL) 2.5 mg /3 mL (0.083 %) nebulizer solution Use 3 mL via nebulizer every 4 hours as needed for wheezing/shortness of breath. Use over 5-15minutes. guaiFENesin (MUCINEX) 600 mg 12 hr tablet Take 2 tablets by mouth twice daily. (Patient not taking: Reported on 09/25/2022) No current facility-administered medications for this visit. ALLERGIES Allergen Reactions Potassium Clavulana* Swelling Seasonal Allergies Other: See Comments Watery eyes,triggers asthma. Augmentin [Amoxicil* Vomiting ACTIVE PROBLEM LIST Rh Negative State in Antepartum Period - 05/29/2017 Poor Support System Affecting , Antepartum - 05/09/2017 Comment: 05/09/2017Patient states FOB is aware she is but she is unsure if he wants to be involced at this point. She plans on keeping the baby. TKRN Obesity in - 05/09/2017 Comment: 05/09/2017She is obese. Will plan on GCT @ [facility].TKRN History of Depression - 05/09/2017 Comment: 05/09/2017 Pt has a history of depression diagnosed diagnosed at age 16 [address] treated [address] Chowdhury at [facility]. She has been off medication for 2 years . She believes she is doing well off medication. Discussed increased risks of depression during and and importance of reporting the development or worsening of symptoms should they occur.Pt states she had suicidal thoughts in the past but none since age 17. TKRN History of Asthma - 05/09/2017 Comment: 05/09/2017Patient has a history of asthma treated by Dr Zacarias.TKRN Crps (Complex Regional Pain Syndrome), Upper Limb - 07/28/2015 Family History of Lupus Anticoagulant Disorder - 07/28/2015 Priya Positive - 12/25/2012 Fibromyalgia - 12/25/2012 Crps (Complex Regional Pain Syndrome) Type I of Lower Limb - 02/25/2012 Asthma - 12/11/2011 Family History of Heart Disease in Male Family Member Before Age 55 - 10/01/2011 Depression - 10/01/2011 Add (Attention Deficit Disorder) - 02/23/2011 Acne Vulgaris: Inflammatory and Comedonal Grade III to IV: face & chest > back - 02/07/2011 Static Encephalopathy - 08/07/2010 Social History Tobacco Use Smoking status: Never Passive exposure: Yes Smokeless tobacco: Never Tobacco comments: mom and Stepfather smoke outside the home Vaping Use Vaping Use: Never used Substance Use Topics Alcohol use: Yes Comment: social once a month or less Drug use: No Review of Systems Respiratory: Positive for cough, chest tightness, shortness of breath and wheezing. Negative for apnea, choking and stridor. Cardiovascular: Negative. OBJECTIVE BP 114/78 Pulse 76 Temp (Src) 97.8 (Left Tympanic) Resp 20 Wt 257 lb (116.6kg) SpO2 99% LMP 03/16/2017 Physical Exam Vitals and nursing note reviewed. Constitutional: General: She is awake. She is not in acute distress. Appearance: She is ill-appearing. She is not toxic-appearing or diaphoretic. HENT: Head: Normocephalic. Cardiovascular: Rate and Rhythm: Normal rate and regular rhythm. Heart sounds: Normal heart sounds. Pulmonary: Effort: No accessory muscle usage, prolonged expiration or respiratory distress. Breath sounds: Examination of the right-lower field reveals decreased breath sounds. Examination of the left-lower field reveals decreased breath sounds. Decreased breath sounds present. No wheezing, rhonchi or rales. Comments: Some slight increased work of breathing, occasional dry cough and cough with deep breath Skin: General: Skin is warm and dry. Capillary Refill: Capillary refill takes less than 2 seconds. Neurological: General: No focal deficit present. Mental Status: She is alert and oriented to person, place, and time. Mental status is at baseline. Psychiatric: Attention and Perception: Attention normal. Mood and Affect: Mood normal. Speech: Speech normal. Behavior: Behavior normal. Behavior is cooperative. Thought Content: Thought content normal. Cognition and Memory: Cognition normal. Judgment: Judgment normal. ASSESSMENT/PLAN: 1. Influenza A - ICD9: 487.1, ICD10: J10.1 (primary diagnosis) Drink plenty of water each day. Nasal saline rinses for congestion. Salt water gargles or cough drops for sore throat. Perform cough and deep breathing exercises multiple times a day as tolerated. Use tylenol or ibuprofen as needed. Seek medical evaluation if symptoms worsen, if you develop chest pain, or shortness of breath at rest. 2. Mild intermittent asthma without complication - ICD9: 493.90, ICD10: J45.20 Mild intermittent Asthma acute excacerbation without status and no respiratory distress - Continue current meds - Continue previously prescribed benzonatate, mucinex, prednisone - Exacerbation treatment: add albuterol nebulizer (use either nebulizer or inhaler and not both) and duonebs. Has machine at home and only needs new face mask and tubing - Avoidance of triggers recommended - AZITHROMYCIN 250 MG TABLET - IPRATROPIUM 0.5 MG-ALBUTEROL 3 MG (2.5 MG BASE)/3 ML NEBULIZATION SOLN - ALBUTEROL SULFATE 2.5 MG/3 ML (0.083 %) SOLUTION FOR NEBULIZATION - NEBULIZER ADMINISTRATION SET Portions of this note have been entered by ancillary staff. I have reviewed and when necessary edited, so that they are an adequate record of my encounter with this patient Please note that parts of this document were created using voice recognition and therefore may contain grammatical errors. Patient verbalizes understanding of instructions from today's visit and in agreement with treatment plan. Questions answered. Agrees to call the office if questions, concerns or issues with acute symptoms not improving or if they worsen. Return if symptoms worsen or fail to improve, for Keep next scheduled appointment.. Conchita Pardo APRN-DHARA documented in this encounter [facility] 09-24-2022 Influenza virus A and B RNA and SARS-CoV-2 (COVID-19) N gene panel JOSÉ+probe (Resp) COVID 19 RESULT: SARS-CoV-2 (Agent of COVID-19) Not Detected by RT-PCR or equivalent method. timoteo [id number] (VALERIY)_EUA This test was developed and its performance characteristics determined by [facility]'s [facility] [place]. This test has been authorized by FDA under an Emergency Use Authorization (EUA). This test has been validated in accordance with the FDA's Guidance Document Policy for Diagnostics Testing in Laboratories Certified to Perform High Complexity Testing under CLIA prior to Emergency use Authorization for Coronavirus Disease 2019 during the Public Health Emergency issued on December 26, 2019. Test performed by [facility], [facility] [place], [facility] [place] [address]. INFLUENZA A PCR: Positive for Influenza A by RT-PCR INFLUENZA B PCR: Negative for Influenza B by RT-PCR [facility] documented as of this encounter (statuses as of 02/06/2022) [facility]07-13-2017 History of Past illness Narrative* Problem Noted Date Resolved Date Patient requested diagnostic testing 05/09/2017 09/30/2017 Overview: 05/09/2017 Patient desires HIV testing, nuchal ultrasound and CF carrier screening testing. TKRN Chronic daily headache 10/09/2013 7 Chest pain 02/20/2013 09/30/2017 Abdominal pain 10/06/2012 09/30/2017 Dizziness 01/16/2012 09/30/2017 Anemia 10/01/2011 09/30/2017 Drug exanthem 06/28/2011 09/15/2011 Fatigue 08/04/2010 09/30/2017 Snoring 08/04/2010 09/30/2017 documented as of this encounter (statuses as of 03/21/2022) [facility]2017 History of Past illness Narrative* Problem Noted Date Resolved Date Patient requested diagnostic testing 05/09/2017 09/30/2017 Overview: 05/09/2017 Patient desires HIV testing, nuchal ultrasound and CF carrier screening testing. TKRN Chronic daily headache 10/09/2013 7 Chest pain 02/20/2013 09/30/2017 Abdominal pain 10/06/2012 09/30/2017 Dizziness 01/16/2012 09/30/2017 Anemia 10/01/2011 09/30/2017 Drug exanthem 06/28/2011 09/15/2011 Fatigue 08/04/2010 09/30/2017 Snoring 08/04/2010 09/30/2017 documented as of this encounter (statuses as of 03/21/2022) [facility] History of Past illness Narrative* Problem Noted Date Resolved Date Patient requested diagnostic testing 05/09/2017 09/30/2017 Overview: 05/09/2017 Patient desires HIV testing, nuchal ultrasound and CF carrier screening testing. TKRN Chronic daily headache 10/09/2013 7 Chest pain 02/20/2013 09/30/2017 Abdominal pain 10/06/2012 09/30/2017 Dizziness 01/16/2012 09/30/2017 Anemia 10/01/2011 09/30/2017 Drug exanthem 06/28/2011 09/15/2011 Fatigue 08/04/2010 09/30/2017 Snoring 08/04/2010 09/30/2017 documented as of this encounter (statuses as of 09/24/2022) [facility] History of Past illness Narrative* Problem Noted Date Resolved Date Patient requested diagnostic testing 05/09/2017 09/30/2017 Overview: 05/09/2017 Patient desires HIV testing, nuchal ultrasound and CF carrier screening testing. TKRN Chronic daily headache 10/09/2013 7 Chest pain 02/20/2013 09/30/2017 Abdominal pain 10/06/2012 09/30/2017 Dizziness 01/16/2012 09/30/2017 Anemia 10/01/2011 09/30/2017 Drug exanthem 06/28/2011 09/15/2011 Fatigue 08/04/2010 09/30/2017 Snoring 08/04/2010 09/30/2017 documented as of this encounter (statuses as of 09/25/2022) [facility] History of Past illness Narrative* Problem Noted Date Resolved Date Patient requested diagnostic testing 05/09/2017 09/30/2017 Overview: 05/09/2017 Patient desires HIV testing, nuchal ultrasound and CF carrier screening testing. TKRN Chronic daily headache 10/09/2013 7 Chest pain 02/20/2013 09/30/2017 Abdominal pain 10/06/2012 09/30/2017 Dizziness 01/16/2012 09/30/2017 Anemia 10/01/2011 09/30/2017 Drug exanthem 06/28/2011 09/15/2011 Fatigue 08/04/2010 09/30/2017 Snoring 08/04/2010 09/30/2017 documented as of this encounter (statuses as of 09/25/2022) [facility] History of Past illness Narrative* Problem Noted Date Resolved Date Patient requested diagnostic testing 05/09/2017 09/30/2017 Overview: 05/09/2017 Patient desires HIV testing, nuchal ultrasound and CF carrier screening testing. TKRN Chronic daily headache 10/09/2013 7 Chest pain 02/20/2013 09/30/2017 Abdominal pain 10/06/2012 09/30/2017 Dizziness 01/16/2012 09/30/2017 Anemia 10/01/2011 09/30/2017 Drug exanthem 06/28/2011 09/15/2011 Fatigue 08/04/2010 09/30/2017 Snoring 08/04/2010 09/30/2017 documented as of this encounter (statuses as of 12/20/2022) [facility] History of Past illness Narrative* Problem Noted Date Resolved Date Patient requested diagnostic testing 05/09/2017 09/30/2017 Overview: 05/09/2017 Patient desires HIV testing, nuchal ultrasound and CF carrier screening testing. TKRN Chronic daily headache 10/09/2013 7 Chest pain 02/20/2013 09/30/2017 Abdominal pain 10/06/2012 09/30/2017 Dizziness 01/16/2012 09/30/2017 Anemia 10/01/2011 09/30/2017 Drug exanthem 06/28/2011 09/15/2011 Fatigue 08/04/2010 09/30/2017 Snoring 08/04/2010 09/30/2017 documented as of this encounter (statuses as of 01/08/2023) [facility] History of Past illness Narrative* Problem Noted Date Resolved Date Patient requested diagnostic testing 05/09/2017 09/30/2017 Overview: 05/09/2017 Patient desires HIV testing, nuchal ultrasound and CF carrier screening testing. TKRN Chronic daily headache 10/09/2013 7 Chest pain 02/20/2013 09/30/2017 Abdominal pain 10/06/2012 09/30/2017 Dizziness 01/16/2012 09/30/2017 Anemia 10/01/2011 09/30/2017 Drug exanthem 06/28/2011 09/15/2011 Fatigue 08/04/2010 09/30/2017 Snoring 08/04/2010 09/30/2017 documented as of this encounter (statuses as of 01/26/2023) [facility]2017 History of Past illness Narrative* Problem Noted Date Resolved Date Patient requested diagnostic testing 05/09/2017 09/30/2017 Overview: 05/09/2017 Patient desires HIV testing, nuchal ultrasound and CF carrier screening testing. TKRN Chronic daily headache 10/09/2013 7 Chest pain 02/20/2013 09/30/2017 Abdominal pain 10/06/2012 09/30/2017 Dizziness 01/16/2012 09/30/2017 Anemia 10/01/2011 09/30/2017 Drug exanthem 06/28/2011 09/15/2011 Fatigue 08/04/2010 09/30/2017 Snoring 08/04/2010 09/30/2017 documented as of this encounter (statuses as of 02/15/2023) [facility]2017 History of Past illness Narrative* Problem Noted Date Resolved Date Patient requested diagnostic testing 05/09/2017 09/30/2017 Overview: 05/09/2017 Patient desires HIV testing, nuchal ultrasound and CF carrier screening testing. TKRN Chronic daily headache 10/09/2013 7 Chest pain 02/20/2013 09/30/2017 Abdominal pain 10/06/2012 09/30/2017 Dizziness 01/16/2012 09/30/2017 Anemia 10/01/2011 09/30/2017 Drug exanthem 06/28/2011 09/15/2011 Fatigue 08/04/2010 09/30/2017 Snoring 08/04/2010 09/30/2017 documented as of this encounter (statuses as of 02/16/2023) [facility] History of Past illness Narrative* Problem Noted Date Resolved Date Patient requested diagnostic testing 05/09/2017 09/30/2017 Overview: 05/09/2017 Patient desires HIV testing, nuchal ultrasound and CF carrier screening testing. TKRN Chronic daily headache 10/09/2013 7 Chest pain 02/20/2013 09/30/2017 Abdominal pain 10/06/2012 09/30/2017 Dizziness 01/16/2012 09/30/2017 Anemia 10/01/2011 09/30/2017 Drug exanthem 06/28/2011 09/15/2011 Fatigue 08/04/2010 09/30/2017 Snoring 08/04/2010 09/30/2017 documented as of this encounter (statuses as of 02/22/2023) [facility] History of Past illness Narrative* Problem Noted Date Resolved Date Patient requested diagnostic testing 05/09/2017 09/30/2017 Overview: 05/09/2017 Patient desires HIV testing, nuchal ultrasound and CF carrier screening testing. TKRN Chronic daily headache 10/09/2013 7 Chest pain 02/20/2013 09/30/2017 Abdominal pain 10/06/2012 09/30/2017 Dizziness 01/16/2012 09/30/2017 Anemia 10/01/2011 09/30/2017 Drug exanthem 06/28/2011 09/15/2011 Fatigue 08/04/2010 09/30/2017 Snoring 08/04/2010 09/30/2017 documented as of this encounter (statuses as of 02/22/2023) [address]13-2017 History of Past illness Narrative* Problem Noted Date Diagnosed Date Resolved Date Patient requested diagnostic testing 05/09/2017 09/30/2017 Overview: 05/09/2017 Patient desires HIV testing, nuchal ultrasound and CF carrier screening testing. TKRN Chronic daily headache 10/09/201309/30 Chest pain 02/20/2013 09/30/2017 Abdominal pain 10/06/2012 09/30/2017 Dizziness 01/16/2012 09/30/2017 Anemia 10/01/2011 09/30/2017 Drug exanthem 06/28/2011 09/15/2011 Fatigue 08/04/2010 09/30/2017 Snoring 08/04/2010 09/30/2017 documented as of this encounter (statuses as of 09/01/2023) [address]13-2017 History of Past illness Narrative* Problem Noted Date Diagnosed Date Resolved Date Patient requested diagnostic testing 05/09/2017 09/30/2017 Overview: 05/09/2017 Patient desires HIV testing, nuchal ultrasound and CF carrier screening testing. TKRN Chronic daily headache 10/09/201309/30 Chest pain 02/20/2013 09/30/2017 Abdominal pain 10/06/2012 09/30/2017 Dizziness 01/16/2012 09/30/2017 Anemia 10/01/2011 09/30/2017 Drug exanthem 06/28/2011 09/15/2011 Fatigue 08/04/2010 09/30/2017 Snoring 08/04/2010 09/30/2017 documented as of this encounter (statuses as of 09/01/2023) [facility] note* Diagnosis Pharyngitis, unspecified etiology- Primary URI, acute Acute upper respiratory infections of unspecified site [facility] Diagnosis Pigmentary retinal dystrophy- Primary [facility]* Diagnosis Pigmentary retinal dystrophy- Primary [facility] Diagnosis Pigmentary retinal dystrophy- Primary [facility] Diagnosis URI with cough and congestion- Primary Wheezing Mild intermittent asthma with acute exacerbation Unspecified asthma, with exacerbation [facility] Diagnosis Influenza A- Primary Influenza with other respiratory manifestations Mild intermittent asthma without complication Unspecified asthma [facility] Diagnosis Encounter for gynecological examination (general) (routine) without abnormal findings- Primary Screening for cervical cancer Screening for malignant neoplasm of the cervix Lump in lower inner quadrant of right breast [facility]* Diagnosis Viral illness- Primary Unspecified viral infection, in conditions classified elsewhere and of unspecified site Pleuritic pain Painful respiration [facility] Diagnosis Pleuritic chest pain- Primary Painful respiration Viral pneumonia Viral pneumonia, unspecified [facility]* Diagnosis Muscle spasm- Primary Spasm of muscle Costochondritis, acute Tietze's disease Encounter for immunization Need for other specified prophylactic vaccination against single bacterial disease Mild intermittent asthma without complication Unspecified asthma Attention deficit hyperactivity disorder (ADHD), combined type Morbid obesity (HCC) Morbid obesity Fatty liver Other chronic nonalcoholic liver disease documented [facility]* Diagnosis Dizziness- Primary Dizziness and giddiness documented [facility]* Diagnosis Lump in lower inner quadrant of right breast [facility]* Diagnosis Viral pneumonia Viral pneumonia, unspecified documented in this encounter [facility] for referral (narrative)* Diagnostic Procedure Only (Routine) - Authorized Specialty Diagnoses / Procedures Referred By Arely martell Referred To Contact [facility] Diagnoses Lump in lower inner quadrant of right breast Procedures US BREAST LTD RT US BREAST UNI REAL TIME WITH IMAGE LIMITED Migdalia Joaquin APRN.CIGAR HEAD PERFORATOR [address] [place] [address] [facility] [phone] [place] [address] Referral ID Status Reason Start Date Expiration Date Visits Requested Visits Authorized [id number] Authorized Auto-Generat ed Referral 12/20/2022 01/19/2024 1 1 [facility] Diagnostic Procedure Only (Routine) - Closed Specialty Diagnoses / Procedures Referred By Arely martell Referred To Contact [facility] Diagnoses Lump in lower inner quadrant of right breast Procedures US BREAST LTD RT US BREAST UNI REAL TIME WITH IMAGE LIMITED Migdalia Joaquin APRN.CNP [address] [place] [address] [facility] [phone] [place] [address] Referral ID Status Reason Start Date Expiration Date V isits Requested Visits Authorized [id number] Closed Auto-Generate d Referral 12/20/2022 01/19/2024 1 1 [facility] Medications Administered Section Active Administered Medications - up to 3 most recent administrations Medication Order MAR Action Action Date Dose Rate Site tropicamide 1 % 1 Drop (MYDRIACYL) 1 Drop, BOTH EYES, DIRECTED, Starting on Sat03/21/22 at 0830, Until Sat03/21/22 at 2028, Administer for dilation Given 03/21/2022 8:16 AM EDT 1 Drop Eyes, Bilateral Health Concerns Infection Onset Date Last Indicated Resolved Time COVID-19 Rule-Out 09/24/2022 09/24/2022 Infection Onset Date Last Indicated Resolved Time COVID-19 Rule-Out 09/24/2022 09/24/2022 09/25/2022 6:52 AM EST Infection Onset Date Last Indicated Resolved Time COVID-19 Rule-Out 01/08/2023 01/08/2023 Reason for Referral Specialty Diagnoses / Procedures Referred By Arely martell Referred To Contact Diagnoses Mild intermittent asthma without complication Lyndsay Mccloud MD [address] [place] [address] Referral ID Status Reason Start Date Expiration Date Visits Re quested Visits Authorized [id number] Closed 1 1 Summary Purpose Family History No Family History Records Found Advance Directives No Advanced Directives Records Found Additional Source Comments Source Comments (unrecognize d section and content) In the event this informatio n is protected by the Federal Confidentiality of Alcohol and Drug Abuse Patient Records regulations: The Federal rules restrict any use of the information to criminally investigate or prosecute any alcohol or drug abuse patient.[facility] HospitalIn the event this information is protected by the Federal Confidentiality of Alcohol and Drug Abuse Patient Records regulations: The Federal rules restrict any use of the information to criminally investigate or prosecute any alcohol or drug abuse patient.[facility] HospitalIn the event this information is protected by the Federal Confidentiality of Alcohol and Drug Abuse Patient Records regulations: The Federal rules restrict any use of the information to criminally investigate or prosecute any alcohol or drug abuse patient.[facility] HospitalIn the event this information is protected by the Federal Confidentiality of Alcohol and Drug Abuse Patient Records regulations: The Federal rules restrict any use of the information to criminally investigate or prosecute any alcohol or drug abuse patient.[facility] HospitalIn the event this information is protected by the Federal Confidentiality of Alcohol and Drug Abuse Patient Records regulations: The Federal rules restrict any use of the information to criminally investigate or prosecute any alcohol or drug abuse patient.[facility] HospitalIn the event this information is protected by the Federal Confidentiality of Alcohol and Drug Abuse Patient Records regulations: The Federal rules restrict any use of the information to criminally investigate or prosecute any alcohol or drug abuse patient.[facility] HospitalIn the event this information is protected by the Federal Confidentiality of Alcohol and Drug Abuse Patient Records regulations: The Federal rules restrict any use of the information to criminally investigate or prosecute any alcohol or drug abuse patient.[facility] HospitalIn the event this information is protected by the Federal Confidentiality of Alcohol and Drug Abuse Patient Records regulations: The Federal rules restrict any use of the information to criminally investigate or prosecute any alcohol or drug abuse patient.[facility] HospitalIn the event this information is protected by the Federal Confidentiality of Alcohol and Drug Abuse Patient Records regulations: The Federal rules restrict any use of the information to criminally investigate or prosecute any alcohol or drug abuse patient.[facility] HospitalIn the event this information is protected by the Federal Confidentiality of Alcohol and Drug Abuse Patient Records regulations: The Federal rules restrict any use of the information to criminally investigate or prosecute any alcohol or drug abuse patient.[facility] HospitalIn the event this information is protected by the Federal Confidentiality of Alcohol and Drug Abuse Patient Records regulations: The Federal rules restrict any use of the information to criminally investigate or prosecute any alcohol or drug abuse patient.[facility] HospitalIn the event this information is protected by the Federal Confidentiality of Alcohol and Drug Abuse Patient Records regulations: The Federal rules restrict any use of the information to criminally investigate or prosecute any alcohol or drug abuse patient.[facility] HospitalIn the event this information is protected by the Federal Confidentiality of Alcohol and Drug Abuse Patient Records regulations: The Federal rules restrict any use of the information to criminally investigate or prosecute any alcohol or drug abuse patient.[facility] HospitalIn the event this information is protected by the Federal Confidentiality of Alcohol and Drug Abuse Patient Records regulations: The Federal rules restrict any use of the information to criminally investigate or prosecute any alcohol or drug abuse patient.[facility] HospitalIn the event this information is protected by the Federal Confidentiality of Alcohol and Drug Abuse Patient Records regulations: The Federal rules restrict any use of the information to criminally investigate or prosecute any alcohol or drug abuse patient.[facility] HospitalIn the event this information is protected by the Federal Confidentiality of Alcohol and Drug Abuse Patient Records regulations: The Federal rules restrict any use of the information to criminally investigate or prosecute any alcohol or drug abuse patient.[facility] Reason for Visit (unrecogniz ed section and content) Reason Comments Visual Changes Both Eyes Reason Comments Macular Dystrophy Follow Up Reason Comments Cough Sob, wheezing,side a nd rib cage hurts, losing voice x 3 days Reason Comments Asthma flare started and mom states she is having asthma attack about every 2 hours. Recheck UC visit on 09/24/22 and dx with flu Reason Comments Orders Reason Comments Nasal Congestion drainage, cough, fev er, chills and ear pain x 2 days, started with fatigue Reason Comments ED Follow-up [facility] ER- abdomen pain comes and goes after eating Reason Comments Results Reason Comments Follow Up xray Reason Comments Patient Update Reason Comments Dizziness HIRSCH, L ear clogged x this AM Reason Comments Radiology US Specialty Diagnoses / Procedures Referred By Arely t Referred To Contact [facility] Diagnoses Lump in lower inner quadrant of right breast Procedures US BREAST LTD RT US BREAST UNI REAL TIME WITH IMAGE LIMITED Migdalia Joaquin APRN.C[employer]AR HEAD PERFORATOR [address] [place] [address] [facility] [address] [place] [address] Referral ID Status Reason Start Date Expiration Date V isits Requested Visits Authorized [id number] Closed Auto-Generate d Referral 12/20/2022 01/19/2024 1 1 Care Teams (unrecognized sec tion and content) Ballet Professor Relationship Specialty Start Date End Date Lyndsay Mccloud MD [address] [place] [address] PCP - General Internal Medicine 11/25/19 Ballet Professor Relationship Specialty Start Date End Date Lyndsay Mccloud MD [address] [place] [address] PCP - General Internal Medicine 11/25/19 Ballet Professor Relationship Specialty Start Date End Date Lyndsay Mccloud MD [address] [place] [address] PCP - General Internal Medicine 11/25/19 Ballet Professor Relationship Specialty Start Date End Date Lyndsay Mccloud MD [address] [place] [address] PCP - General Internal Medicine 11/25/19 Ballet Professor Relationship Specialty Start Date End Date Lyndsay Mccloud MD [address] [facility] [place] [address] PCP - General Internal Medicine 11/25/19 Ballet Professor Relationship Specialty Start Date End Date Lyndsay Mccloud MD [address] [facility] [place] [place] [address] PCP - General Internal Medicine 11/25/19 Ballet Professor Relationship Specialty Start Date End Date Lyndsay Mccloud MD [address] [facility] [place] [address] PCP - General Internal Medicine 11/25/19 Ballet Professor Relationship Specialty Start Date End Date Lyndsay Mccloud MD [address] [place] [address] PCP - General Internal Medicine 11/25/19 Ballet Professor Relationship Specialty Start Date End Date Lyndsay Mccloud MD [address] [place] [address] PCP - General Internal Medicine 11/25/19 Ballet Professor Relationship Specialty Start Date End Date Lyndsay Mccloud MD [address] [facility] [place] [address] PCP - General Internal Medicine 11/25/19 Ballet Professor Relationship Specialty Start Date End Date Lyndsay Mccloud MD [address] [facility] [place] [address] PCP - General Internal Medicine 11/25/19 Ballet Professor Relationship Specialty Start Date End Date Lyndsay Mccloud MD [address] [facility] [place] [address] PCP - General Internal Medicine 11/25/19 Ballet Professor Relationship Specialty Start Date End Date Lyndsay Mccloud MD [address] [facility] [place] [address] PCP - General Internal Medicine 11/25/19 Ballet Professor Relationship Specialty Start Date End Date Lyndsay Mccloud MD [address] [facility] [place] [address] PCP - General Internal Medicine 11/25/19 INFORMATION SOURCE (unrecogn ized section and content) FOR RECORDS PERTAINING TO PATIENTS WHO ARE OR HAVE BEEN ENROLLED IN A CHEMICAL DEPENDENCY/SUBSTANCEABUSE PROGRAM, SOME INFORMATION MAY BE OMITTED. This clinical summary was aggregated from multiple sources. Caution should be exercised in using it in the provision of clinical care. This summary normalizes information from multiple sources, and as a consequence, information in this document may materially change the coding, format and clinical context of patient data. In addition, data may be omitted in some cases. CLINICAL DECISIONS SHOULD BE BASED ON THE PRIMARY CLINICAL RECORDS. [employer] provides no warranty or guarantee of the accuracy or completeness of information in this document.
--- NOTE | 2023-11-29 02:44 | CPS ---
x1 Albuterol given to pt. in ER as well
[2023-11-29 03:28] VITALS: BP 132/93; PULSE 83; RESP 18; TEMP 37.3; O2SAT 99
== END 2023-11-29 03:30 | disposition home or self-care (01) ==
PROVIDERS: Emergency Provider Emergency Medicine; PCP Internal Medicine; Visit Provider Emergency Medicine
DX: J10.1 Influenza due to other identified influenza virus with other respiratory manifestations (principal); I10 Essential (primary) hypertension; J45.909 Unspecified asthma, uncomplicated
CPT/HCPCS: 71045; 87631; 94640; 99283

== ENCOUNTER 2024-04-28 20:06 | Emergency (ER) | payer OTHER, SELFPAY ==
[2024-04-28 20:07] VITALS: BP 150/104; PULSE 139; RESP 18; TEMP 37.7; O2SAT 96
--- NOTE | 2024-04-28 20:37 | EKG12_ITS ---
Test Reason : DYSRHYTHMIA Blood Pressure : / mmHG Vent. Rate : 127 BPM Atrial Rate : 127 BPM P-R Int : 132 ms QRS Dur : 092 ms QT Int : 292 ms P-R-T Axes : 056 075 033 degrees QTc Int : 424 ms Sinus tachycardia Otherwise Normal Confirmed by John Lowe ([id number]), publications editor NORMAN TIRADO ([id number]) on 05/01/2024 9:19:19 AM Referred By: Confirmed By:John Lowe
--- NOTE | 2024-04-28 20:38 | EDS_ITS ---
HPI History of Present Illness Chief Complaint: Weakness Detail of Chief Complaint: Fever and cough Informant: patient Narrative Narrative: Patient presents emergency department complaint of fever and cough and not feeling well x 2 days. Patient states that she has been feeling somewhat lightheaded. She has been wheezing frequently and has been using her inhaler and then went to using her nebulizer but it is not helping much. She complains of bodyaches and headache. Patient states that her mother is currently admitted with pneumonia and they live together. Patient also has been around family members that have had illnesses that have not been diagnosed. Patient also complains of some urinary frequency. [facility] Medical History Anemia Asthma Chronic neck and back pain Hypertension Seasonal allergies Shoulder pain Home Medications ?Medication ?Instructions ?Recorded ?Last Taken ?Type levofloxacin 750 mg tablet 750 mg PO DAILY #6 tabs 04/28/24 Unknown Rx Allergy/AdvReac Type Severity Reaction Status Date / Time amoxicillin trihydrate (From AdvReac Swelling Verified 04/28/24 20:10 Augmentin) potassium clavulanate (From AdvReac Swelling Verified 04/28/24 20:10 Augmentin) Surgical History History of Social History Smoking Status: Never smoker alcohol intake: current substance use type: does not use ROS ROS ED Review of Systems ROS Unobtainable: other Constitutional Constitutional ED: Reports fever(s) and lethargy; Denies chills, sweats or weight loss Eyes Eyes: Denies blurry vision, change in vision or diplopia ENT ENT ED: Denies rhinorrhea or sore throat Cardiovascular Cardiovascular: Denies chest pain, orthopnea or racing heartbeat Respiratory/Chest Respiratory/Chest: Reports cough, dyspnea and dyspnea on exertion; Denies orthopnea or sputum Gastrointestinal Gastrointestinal: Denies abdominal pain, diarrhea, nausea or vomiting Genitourinary Genitourinary ED: Denies dysuria, hematuria or urinary frequency Musculoskeletal Musculoskeletal: Reports myalgias; Denies arthralgias, back pain or neck pain Integumentary Denies abscess, Abrasions or rash Neurologic Neurologic: Reports weakness; Denies headache(s) Psychiatric Psychiatric: Denies anxiety, depression or suicidal thoughts Endocrine Endocrinology: Denies polydipsia, polyphagia or polyuria Hematologic/Lymphatic Hematologic/Lymphatic: Denies easy bleeding, easy bruising or lymphadenopathy Allergic/Immunologic Allergic/Immunologic ED: Denies mouth swelling, tongue swelling or urticaria EXAM Physical Exam Const Vital Signs: 04/28/24 20:07 04/28/24 20:37 04/28/24 21:10 Temperature 99.9 F H 100.9 F H Temperature Source Temporal Oral Pulse Rate 139 H 113 H Respiratory Rate 18 16 Respiratory Effort Respiratory Depth Respiratory Pattern Blood Pressure 150/104 H 136/101 H Blood Pressure Mean 119 112 Pulse Ox 96 98 Oxygen Delivery Method Room Air Room Air Room Air 04/28/24 21:13 04/28/24 21:14 Temperature Temperature Source Pulse Rate Respiratory Rate Respiratory Effort Normal Normal Respiratory Depth Normal Respiratory Pattern Normal Normal Blood Pressure Blood Pressure Mean Pulse Ox Oxygen Delivery Method Room Air Positive well nourished and well developed General Appearance ED: well developed and NAD HEENT Reports TM's clear and moist mucous membranes normocephalic and atraumatic; Negative for trauma or tenderness Tympanic Membrane ED: Yes TM's clear Eyes PERRL and EOMs intact bilaterally General Eye ED: Negative for pale conjunctiva or scleral icterus Neck no lymphadenopathy, supple and no JVD General: Negative for tenderness Chest Wall inspection of chest normal and palpation of chest normal Chest: Negative for tenderness Resp normal respiratory effort and clear to auscultation bilaterally Effort and Inspection: Negative for respiratory distress or pain with movement Auscultation: Negative for rhonchi, wheezes or diminished lung sounds Cardio regular rate, regular rhythm, S1 normal heart sound, S2 normal heart sound and no murmurs Peripheral Pulses: pulses 2+ throughout GI normal to inspection, nondistended, normoactive bowel sounds, soft to palpation, non-tender, non-distended and no masses Back/Spine no CVA tenderness and no thoracic nor lumbar tenderness Extremity normal to inspection General Extremety ED: Negative for edema General Extremity: Negative for edema Neuro oriented x3, CN's II-XII intact bilaterally, no sensory deficits noted and gait normal Sensorium / Orientation: awake, alert, oriented to person, oriented to place and oriented to time Motor Exam: strength 5/5 throughout and strength abnormal Psych mental status grossly normal Skin no rashes or lesions noted and no wounds MDM MDM MDM Narrative Medical decision making narrative: Patient presents to the emergency department with a cough x 2 days and fever. She has history of pneumonia and her mom currently is admitted to the hospital and being treated for pneumonia. IV line established. Blood cultures were ordered. CBC with differential obtained showed a white count of 6.5 with hem oglobin 13.4. Chemistries unremarkable. BUN was 10 and creatinine 1.12. Glucose was 110. Urinalysis showed 25-50 RBCs but no signs of infection. Patient was given Tylenol on arrival. Chest x-ray obtained showed a right lower lobe pneumonia. She was started on Levaquin IV. Clinically she looks well I feel she can be discharged to home. Will write her prescription for Levaquin. She can use her inhaler at our aerosols at home as needed. Patient advised to return if increasing shortness of breath or condition should worsen anyway. Patient to follow-up with her primary care physician within next 5 to 7 days. Lab Data Attestation: I reviewed the patient's lab results. Labs: Laboratory Results - last 24 hr 04/28/24 04/28/24 20:35 20:47 WBC 6.5 RBC 4.76 Hgb 13.4 Hct 40.4 MCV 84.9 MCH 28.2 MCHC 33.2 RDW Std Deviation 40.6 RDW Coeff of [place] 13.2 Plt Count TNP MPV 11.2 Immature Gran % (Auto) 0.300 Neut % (Auto) 73.4 H Lymph % (Auto) 14.7 L [place] % (Auto) 10.0 Eos % (Auto) 0.8 Baso % (Auto) 0.8 Absolute Neuts (auto) 4.8 Absolute Lymphs (auto) 0.96 Nucleated RBC % 0 Platelet Estimate ADEQUATE RBC Morphology NORM C+C Sodium 134 L Potassium 3.6 Chloride 105 Carbon Dioxide 24.0 Anion Gap 5 BUN 10 Creatinine 1.12 H Estim Creat Clear Calc 177.37 Est GFR (MDRD) Af Amer 74 Est GFR (MDRD) Non-Af 61 BUN/Creatinine Ratio 8.9 L Glucose 110 H Calcium 8.8 Urine Color Yellow Urine Clarity Sl. Cloudy Urine pH 7.0 Ur Specific [place] 1.010 Urine Protein 30 H Urine Glucose (UA) Normal Urine Ketones Negative Urine Occult Blood 150 H Urine Nitrite Negative Urine Bilirubin Negative Urine Urobilinogen 8 H Ur Leukocyte Esterase 25 H Urine RBC 25-50 SEEN Urine WBC 0-5 SEEN Ur Squamous Epith Cells 0-5 SEEN Urine Bacteria 0 SEEN Urine Mucus 0 SEEN Radiography Diagnostic Testing: Clinical Impression(s) from Imaging Studies Chest X-Ray 04/28/24 20:50 IMPRESSION: 1. Interstitial and patchy alveolar infiltrate/pneumonia at the RIGHT lung base. 2. Minimal atelectasis at LEFT base. 3. No congestive failure Electronically Signed: Prakash Dennis MD at 21:28 EDT , 1 view chest x-ray obtained interpreted by myself as right lower lobe infiltrates. Radiology in agreement. EKG Initial EKG: Attestation: I personally reviewed and interpreted this EKG as follows: Comments: Sinus tachycardia with ventricular rate of 127 bpm with no acute ST segment changes Discharge Plan Triage Chief Complaint: Weakness ED Provider: Corazon Amezquita Dx/Rx/DC Orders Clinical Impression: Pneumonia Instructions: ED Pneumonia (Adult) Prescriptions: New levofloxacin 750 mg tablet 750 mg PO DAILY Qty: 6 0RF Primary Care Provider: Lyndsay Mccloud Referrals: Lyndsay Mccloud MD [Primary Care Provider] - 5-7 Days Print Language: Mozambican Disposition Disposition: Home, Self Care
--- NOTE | 2024-04-28 20:50 | RAD_ITS ---
INDICATION: cough EXAMINATION/TECHNIQUE: X-RAY - XR Chest 1 View COMPARISON: 11/29/2023 FINDINGS: LIFE-SUPPORT AND LINES: 1. None HEART AND VESSELS: The cardiac silhouette, pulmonary vasculature have normal appearance. No evidence of congestive failure. LUNGS AND PLEURAL SPACES: Interstitial and patchy alveolar infiltrate/pneumonia at the RIGHT lung base. Minimal interstitial prominence at the LEFT base. No effusion. MEDIASTINUM AND HILAR REGIONS: No masses adenopathy noted. No areas of calcification. Visualized upper airway is normal in position. BONY ELEMENTS: No acute bony changes noted. RAD/Chest 1 View (Portable) IMPRESSION: 1. Interstitial and patchy alveolar infiltrate/pneumonia at the RIGHT lung base. 2. Minimal atelectasis at LEFT base. 3. No congestive failure Electronically Signed: Prakash Dennis MD at 21:28 EDT ,
[2024-04-28 20:53] LABS: Absolute Lymphocyte Count 0.96 X10^3/uL (0.83-4.51); Absolute Neutrophil Count 4.8 X10^3/uL (2.0-7.7); Basophil# 0.05 X10^3/uL; Basophil% 0.8 % (0-1); Eosinophil# 0.05 X10^3/uL; Eosinophils% 0.8 % (0-5); Hematocrit 40.4 % (37-47); Hemoglobin 13.4 g/dL (12.0-15.0); Lymphocyte # 0.96 X10^3/ul (0.83-4.51); Lymphocyte % 14.7 % (19-41); Mean Corp Hgb Conc 33.2 g/dL (32-36); Mean Corpuscular Hgb 28.2 pg (27.0-32.0); Mean Corpuscular Volume 84.9 fL (81-99); Mean Platelet Vol. 11.2 fl (6.2-12.0); Monocyte# 0.65 X10^3/uL; NRBC Flagged by Analyzer 0 % (0-5); Neutrophil # 4.78 X10^3/uL (2.7-7.7); Neutrophil % 73.4 % (47-70); POSITIVE COUNT YES; RBC Distribution Width CV 13.2 % (11.6-14.6); RBC Distribution Width SD 40.6 fl (35.1-43.9); Red Blood Count 4.76 M/mm3 (4.2-5.4); White Blood Count 6.5 K/mm3 (4.4-11.0)
[2024-04-28 20:54] LABS: Differential Indicated SCAN CRITERIA MET
[2024-04-28 20:55] VITALS: BMI 106.4
[2024-04-28] MEDS: 0.9% Normal Saline (1000mL) 1,000 ML 150 ML IV (20:56)
[2024-04-28] MEDS: Acetaminophen 500 MG Tablet 1000 MG PO (20:57)
[2024-04-28 21:04] LABS: Bacteria 0 SEEN /hpf (None Seen); Mucous, Urine 0 SEEN /hpf (<or=2+)
[2024-04-28 21:05] LABS: Anion Gap 5 (5-15); BUN 10 mg/dL (7-18); BUN/Creat Ratio 8.9 RATIO (10-20); Calcium,Total 8.8 mg/dL (8.5-10.1); Chloride 105 mmol/L (98-107); Creatinine, Serum 1.12 mg/dL (0.55-1.02); EST Glomerular Filtration Rate 61 mL/min (>60); Est Glom Filt Rate - Afr Amer 74 mL/min (>60); Estimated Creatinine Clearance 177.37 ml/min; Glucose 110 mg/dL (74-106); Potassium 3.6 mmol/L (3.5-5.1); Sodium Level 134 mmol/L (136-145)
[2024-04-28 21:10] VITALS: BP 136/101; PULSE 113; RESP 16; TEMP 38.3; O2SAT 98
[2024-04-28 21:10] LABS: Color, Urine Yellow (Yellow); Glucose, Dipstick Normal (Normal); Ketone-Dipstick Negative (Negative); Leukocyte Esterase-Dipstick 25 /ul (Negative); Nitrite-Dipstick Negative (Negative); Occult Blood-Urine 150 /ul (Negative); Protein-Dipstick 30 mg/dl (Negative); Urine Bilirubin Dipstick Negative (Negative); Urine Clarity Sl. Cloudy (Clear); Urine Urobilinogen 8 mg/dl (Normal)
[2024-04-28 21:16] LABS: Platelet Estimate ADEQUATE (ADEQ); Red Cell Morphology NORM C+C NORMAL (NORM C&C)
[2024-04-28 21:28] LABS: Red Blood Cells-Urine 25-50 SEEN /hpf (0-5); Squamous Epithelial Cells - UA 0-5 SEEN /hpf (5-10); White Blood Cells 0-5 SEEN /hpf (0-5)
[2024-04-28 22:00] VITALS: BP 120/58; PULSE 106; RESP 15; TEMP 37.7; O2SAT 93
[2024-04-28] MEDS: levoFLOXacin IV 750 MG in Empty Viaflex Q24 100 MG IV (22:14)
[2024-04-28 22:18] VITALS: BP 130/76; PULSE 102; RESP 14; TEMP 37.7; O2SAT 95
[2024-04-28 22:22] LABS: Lactic Acid 1.4 mmol/L (0.4-1.9)
[2024-04-28 23:00] VITALS: BP 94/63; PULSE 95; RESP 16; TEMP 37.4; O2SAT 97
[2024-04-28 23:59] VITALS: BP 129/97; PULSE 100; RESP 16; TEMP 36.8; O2SAT 99
== END 2024-04-28 23:59 | disposition home or self-care (01) ==
PROVIDERS: Emergency Provider Emergency Medicine; PCP Internal Medicine; Visit Provider Emergency Medicine
DX: J18.9 Pneumonia, unspecified organism (principal); I10 Essential (primary) hypertension
CPT/HCPCS: 71045; 80048; 81001; 83605; 85025; 87040; 87631; 93005; 96361; 96365; 96367; 99284; J7030; A4216